=== PATIENT | male | born 1955 | race Caucasian/White ===

== ENCOUNTER 2023-07-21 01:13 | Emergency (ER) | payer OTHER, SELFPAY ==
[2023-07-21 01:15] VITALS: BP 142/98; PULSE 90; RESP 18; TEMP 36.7; O2SAT 97; BMI 25.8
--- NOTE | 2023-07-21 01:32 | ED.LOWEXI1 ---
HPI - Extremity Injury (Lower) General Chief Complaint: Extremity Injury, Lower Stated Complaint: RT KNEE PAIN Time Seen by Provider: 07/21/23 01:29 Source: patient Mode of arrival: walk-in Limitations: no limitations History of Present Illness HPI Narrative: right knee pain. States he was walking at work tonight and developed pain of the right knee. states the knee feels like it wants to give out when he has pain. no injury. Sent here from work. no fever Related Data Home Medications Medication Instructions Recorded Confirmed glipizide 10 mg tablet mg 07/21/23 insulin detemir U-100 100 unit/mL unit subcut 07/21/23 (3 mL) subcutaneous pen (Levemir FlexPen) pregabalin 100 mg capsule mg 07/21/23 Allergies Allergy/AdvReac Type Severity Reaction Status Date / Time No Known Drug Allergies Allergy Verified 07/21/23 01:20 Review of Systems ROS Status of ROS 10 or more systems reviewed and unremarkable except as noted in history and below PFSH PFS Social History Smoking status: Never smoker Exam Constitutional Vital Signs, click to edit/add: Last Vital Signs Temp 98.1 F 07/21/23 01:15 Pulse 90 07/21/23 01:15 Resp 18 07/21/23 01:15 BP 142/98 H 07/21/23 01:15 Pulse Ox 97 07/21/23 01:15 O2 Del Method Room Air 07/21/23 01:15 Common normals: no apparent distress, average body habitus, oriented x3 and no limitations Eye Common normals: PERRL, EOMs intact bilaterally and conjunctivae normal Respiratory Common normals: no retractions and no use of accessory muscles Extremity Other: exam right knee grossly normal. no swelling or discoloration. FROM Neuro Common normals: oriented x3, CN's II-XII intact bilaterally, moves all extremities and no focal motor deficits Psych Appearance: grossly normal Course Vital Signs Vital signs: Vital Signs Temperature 98.1 F 07/21/23 01:15 Pulse Rate 90 07/21/23 01:15 Respiratory Rate 18 07/21/23 01:15 Blood Pressure 142/98 H 07/21/23 01:15 Pulse Oximetry 97 07/21/23 01:15 Oxygen Delivery Method Room Air 07/21/23 01:15 Temperature 98.1 F 07/21/23 01:15 Pulse Rate 90 07/21/23 01:15 Respiratory Rate 18 07/21/23 01:15 Blood Pressure 142/98 H 07/21/23 01:15 Pulse Oximetry 97 07/21/23 01:15 Oxygen Delivery Method Room Air 07/21/23 01:15 MDM - Extremity Injury (Lower) MDM Narrative Medical decision making narrative: presents complaining of pain of the knee. when he does experience the pain and is walking the knee feels like it wants to give out. has mild tenderness dorsum of knee but no swelling or erythema. xray and labs neg. Patient provided with a knee brace and discharge to follow up with [facility] Discharge Plan Discharge Chief Complaint: Extremity Injury, Lower Clinical Impression: Knee pain, right Patient Disposition: Home, Self-Care Prescriptions / Home Meds: No Action glipizide 10 mg tablet pregabalin 100 mg capsule Levemir FlexPen 100 unit/mL (3 mL) insulin pen SUBCUT Instructions: Knee Pain (ED) Additional Instructions: follow up with [facility] in the next 2-3 days Stand Alone Forms: Portal Instructions Referrals: Shaikh Hunt MD [Primary Care Provider] - 1 week
--- NOTE | 2023-07-21 01:36 | XR_ITS ---
The [address] [address] Patient Name: LAURA ISAACS MRN: [id number] date: 1955 Sex: M Assigned Patient Location: ER Current Patient Location: ED.MAIN Accession/Order Number: [id number] Exam Date: 07/21/2023 01:45 Report Date: 07/21/2023 02:11 At the request of: ORQUIDEA BILLINGSLEY Procedure: XR knee RT 3V EXAM: XR knee RT 3V HISTORY: pain COMPARISON: None. TECHNIQUE: 3 views of the right knee were obtained. FINDINGS: No acute fracture or dislocation is seen. The joint spaces are preserved. There is no significant right knee joint effusion. XR/XR knee RT 3V IMPRESSION: 1. No acute or significant abnormality of the right knee is seen. If there is concern for internal derangement, a nonemergent outpatient MRI is recommended. Electronically authenticated by: Jadon FRANCIS Date: 07/21/2023 02:11
[2023-07-21 01:54] LABS: Basophils Absolute Auto 0.1 10^3/uL (0.0-0.1); Basophils Percent Auto 0.7 % (0.2-2.0); Eosinophils Absolute Auto 0.3 10^3/uL (0.0-0.7); Eosinophils Percent Auto 3.3 % (0.9-7.0); Hematocrit 44.7 % (42.0-54.0); Hemoglobin 15.7 g/dL (14.0-18.0); Immature Granulocytes Abs Auto 0.02 10^3/uL (0.00-0.03); Immature Granulocytes Pct Auto 0.2 % (0.0-0.5); Lymphocytes Absolute Auto 2.4 10^3/uL (1.2-3.8); Lymphocytes Percent Auto 28.6 % (20.5-60.0); Mean Corpuscular HGB Conc 35.1 g/dL (29.9-35.2); Mean Corpuscular Hemoglobin 31.5 pg (25.9-34.0); Mean Corpuscular Volume 89.6 fL (80.0-94.0); Mean Platelet Volume 11.2 fL (9.5-13.5); Monocytes Absolute Auto 0.6 10^3/uL (0.3-0.8); Monocytes Percent Auto 7.6 % (1.7-12.0); Neutrophils Percent Auto 59.6 % (43.0-75.0); Platelet Count 223 10^3/uL (150-450); Red Blood Count 4.99 10^6/uL (4.70-6.10); Red Cell Distribution Width 12.1 % (11.0-15.0); White Blood Count 8.5 10^3/uL (4.0-11.0)
[2023-07-21 02:01] LABS: Erythrocyte Sedimentation Rate 21 mm/hr (<=20)
[2023-07-21 02:03] LABS: Anion Gap 10.2; BUN Creatinine Ratio 15.1; Calcium 9.1 mg/dL (8.5-10.1); Carbon Dioxide 29.6 mmol/L (21.0-32.0); Chloride 102 mmol/L (98-107); Estimated GFR (African America >60 (>=60); Estimated GFR (Non-African Ame >60 (>=60); Glucose 90 mg/dL (74-106); Potassium 3.8 mmol/L (3.5-5.1); Sodium 138 mmol/L (136-145)
[2023-07-21 02:06] LABS: C Reactive Protein <1.0 mg/dL (<=1.0)
== END 2023-07-21 03:07 | disposition home or self-care (01) ==
PROVIDERS: Emergency Provider Internal Medicine; PCP Internal Medicine
DX: M25.561 Pain in right knee (principal); Z79.4 Long term (current) use of insulin; Z79.899 Other long term (current) drug therapy
CPT/HCPCS: 36415; 73562; 80048; 85025; 85652; 86140; 99284

== ENCOUNTER 2023-08-01 08:33 | Outpatient (OUT) | payer OTHER, SELFPAY ==
[2023-08-01 09:16] LABS: Estimated Average Glucose 143 mg/dL; Glycohemoglobin A1C 6.6 % (4.5-6.2)
[2023-08-01 10:43] LABS: Creatinine Urine Random <13.00 mg/dL (20.00-300.00); Microalbumin Urine Random 1.4 mg/dL (<=30.0)
[2023-08-04 13:09] LABS: Antiscleroderma-70 Antibodies <0.2 AI (0.0-0.9)
[2023-08-05 15:10] LABS: Antinuclear Antibodies, IFA Negative (.)
== END 2023-08-01 08:34 | disposition home or self-care (01) ==
LOC: LAB 08:34
PROVIDERS: PCP Internal Medicine; Visit Provider Internal Medicine
DX: E11.9 Type 2 diabetes mellitus without complications (principal); M35.9 Systemic involvement of connective tissue, unspecified
CPT/HCPCS: 36415; 82043; 82570; 83036; 86038; 86235

== ENCOUNTER 2024-02-02 14:16 | Outpatient (OUT) | payer MEDICARE, BC, SELFPAY ==
[2024-02-02 14:45] LABS: Estimated Average Glucose 214 mg/dL; Glycohemoglobin A1C 9.1 % (4.5-6.2)
[2024-02-02 14:51] LABS: Chol HDL Ratio 4.6; Cholesterol 187 mg/dL (<=200); HDL Cholesterol 41 mg/dL (40-60); LDL Cholesterol Calculated 117.2 mg/dL; Triglycerides 144 mg/dL (<=150); VLDL CHOLESTEROL 28.8 mg/dL
== END 2024-02-02 14:17 | disposition home or self-care (01) ==
LOC: LAB 14:22
PROVIDERS: PCP Internal Medicine; Visit Provider Internal Medicine
DX: E11.42 Type 2 diabetes mellitus with diabetic polyneuropathy (principal); Z13.220 Encounter for screening for lipoid disorders
CPT/HCPCS: 36415; 80061; 83036

== ENCOUNTER 2024-04-19 09:03 | Outpatient (OUT) | payer MEDICARE, BC, SELFPAY ==
[2024-04-22 22:07] LABS: Testosterone 493 ng/dL (264-916)
== END 2024-04-19 09:04 | disposition home or self-care (01) ==
LOC: LAB 09:05
PROVIDERS: PCP Internal Medicine; Visit Provider Internal Medicine
DX: R20.2 Paresthesia of skin (principal); M79.605 Pain in left leg; M79.604 Pain in right leg; Z79.899 Other long term (current) drug therapy; N52.8 Other male erectile dysfunction
CPT/HCPCS: 36415; 82728; 84402; 84403

== ENCOUNTER 2024-04-19 09:08 | Outpatient (OUT) | payer MEDICARE, BC, SELFPAY | END 2024-04-19 09:09 | disposition home or self-care (01) | LOC: LAB 09:10 | PROVIDERS: PCP Internal Medicine; Visit Provider Psychiatry & Neurology Neurology | DX: R20.2 Paresthesia of skin (principal); M79.605 Pain in left leg; M79.604 Pain in right leg; Z79.899 Other long term (current) drug therapy | CPT/HCPCS: 36415; 82728 ==

== ENCOUNTER 2024-04-28 14:13 | Outpatient (OUT) | payer MEDICARE, BC, SELFPAY ==
[2024-04-28 15:58] LABS: TSH W/ REFLEX FT4 1.644 uIU/mL (0.358-3.740)
[2024-04-29 04:08] LABS: FSH 3.2 mIU/mL (1.5-12.4); Prolactin 13.2 ng/mL (3.6-25.2)
[2024-05-01 20:08] LABS: Free Testosterone(Direct) 4.3 pg/mL (6.6-18.1); Testosterone 607 ng/dL (264-916)
== END 2024-04-28 14:14 | disposition home or self-care (01) ==
LOC: LAB 14:14
PROVIDERS: PCP Internal Medicine; Visit Provider Internal Medicine
DX: E34.9 Endocrine disorder, unspecified (principal)
CPT/HCPCS: 36415; 83001; 83002; 84146; 84402; 84403; 84443

== ENCOUNTER 2024-05-19 10:11 | Outpatient (OUT) | payer MEDICARE, BC, SELFPAY ==
--- OUTSIDE RECORDS SUMMARY | 2024-05-19 10:27 | XMS_ITS | CCD ---
Author Organization [facility] Care Team Providers Care Healthcare Marketer Name Role Phone WEST, DR POORNIMA Murry Consulting Unavailable LANG, LAYNE Admitting Unavailable LANG, LAYNE Attending Unavailable REQUEST, NONE LISTED Primary Care Unavaila ble LANG, LAYNE Consulting Unavailable FAWWAD, BOWEN H Attending Unavailable FAWWAD, BOWEN H Admitting Unavailable FAWWAD, BOWEN H Primary Care Unavailable FAWWAD, BOWEN H Consulting Unavailable FAWWAD, BOWEN H Attending Unavailable FAWWAD, BOWEN H Admitting Unavailable FAWWAD, BOWEN H Primary Care Unavailable FAWWAD, BOWEN H Consulting Unavailable LANG, LAYNE Admitting Unavailable LANG, LAYNE Consulting Unavailable LANG, LAYNE Attending Unavailable REQUEST, NONE LISTED Primary Care Unavaila ble FAWWAD, BOWEN Attending Unavailable FAWWAD, BOWEN Attending Unavailable ALISSA MURO Attending Unavailable FAWWAD, Attending Unavailable ALLA SANTANA Attending Unavailable Problems Problem Classification Problem Date Documented Da te Episodic/Chronic Diabetes mellitus without complication (1 source) Type 2 diabetes mellitus without complications; Translations: [TYPE 2 DM WITHOUT COMPLICATIONS] Onset: 03-13-2023 Chronic Other nervous system disorders (4 sources) Polyneuropathy, unspecified; Translations: [POLYNEUROPATHY UNSPECIFIED] Onset: 03-07-2023 Chronic Other nervous system disorders (4 sources) Paresthesia of skin; Translations: [PARESTHESIA OF SKIN] Onset: 02-03-2023 Episodic Other nervous system disorders (4 sources) Anesthesia of skin; Translations: [ANESTHESIA OF SKIN] Onset: 01-09-2023 Episodic Results Test Name Value Interpretation Reference Range Facil ity CBC AUTO DIFFon 05-05-2023 BASO # 0.0 103/ul Normal 0.0-0.1 [facility] Comment on above: Performed By: #### C BC #### [facility] [address] [place] [address] Dr. Stella Mora Basophils/100 WBC (Bld) 0.4 % Normal 0.2-2.0 [facility] Comment on above: Performed By: #### C BC #### [facility] [address] [place] [address] Dr. Stella Mora EO # 0.1 103/ul Normal 0.0-0.7 [facility] Comment on above: Performed By: #### C BC #### [facility] [address] [place] [address] Dr. Stella Mora Eosinophils/100 WBC (Bld) 0.7 % Critically low 0.9-7.0 [facility] Comment on above: Performed By: #### C BC #### [facility] [address] [place] [address] Dr. Stella Mora Erythrocyte distribution width (RBC) [Ratio] 11.9 % Normal 11.0-15.0 [facility] Comment on above: Performed By: #### C BC #### [facility] [address] [place] [address] Dr. Stella Mora Hematocrit (Bld) [Volume fraction] 43.5 % Normal 42.0-54.0 [facility] Comment on above: Performed By: #### C BC #### [facility] [address] [place] [address] Dr. Stella Mora Hemoglobin (Bld) [Mass/Vol] 15.6 g/dL Normal 14.0-18.0 [facility] Comment on above: Performed By: #### C BC #### [facility] [address] [place] [address] Dr. Stella Mora IG # 0.01 10e3/ul Normal 0.00-0.03 [facility] Comment on above: Performed By: #### C BC #### [facility] [address] [place] [address] Dr. Stella Mora IG % 0.1 % Normal 0.0-0.5 [facility] Comment on above: Performed By: #### C BC #### [facility] [address] [place] [address] Dr. Stella Mora LYMPH # 1.7 103/ul Normal 1.2-3.8 [facility] Comment on above: Performed By: #### C BC #### [facility] [address] [place] [address] Dr. Stella Mora Lymphocytes/100 WBC (Bld) 24.5 % Normal 20.5-60.0 [facility] Comment on above: Performed By: #### C BC #### [facility] [address] [place] [address] Dr. Stella Mora MANUAL DIFF REQ NO Normal [facility] Comment on above: Performed By: #### C BC #### [facility] [address] [place] [address] Dr. Stella Mora MCH (RBC) [Entitic mass] 31.8 pg Normal 25.9-34.0 [facility] Comment on above: Performed By: #### C BC #### [facility] [address] [place] [address] Dr. Stella Mora MCHC (RBC) [Mass/Vol] 35.9 g/dL Critically high 29.9-35.2 [facility] Comment on above: Performed By: #### C BC #### [facility] [address] [place] [address] Dr. Stella Mora MCV (RBC) [Entitic vol] 88.6 fL Normal 80.0-94.0 [facility] Comment on above: Performed By: #### C BC #### [facility] [address] [place] [address] Dr. Stella Mora MONO # 0.5 103/ul Normal 0.3-0.8 [facility] Comment on above: Performed By: #### C BC #### [facility] [address] [place] [address] Dr. Stella Mora Monocytes/100 WBC (Bld) 6.9 % Normal 1.7-12.0 [facility] Comment on above: Performed By: #### C BC #### [facility] [address] [address] [address] Stella Mora NEUT # 4.6 103/ul Normal 1.4-6.5 [facility] Comment on above: Performed By: #### C BC #### [facility] [address] [address] [address] Stella Mora Neutrophils/100 WBC (Bld) 67.4 % Normal 43.0-75.0 [facility] Comment on above: Performed By: #### C BC #### [facility] [address] [address] [address] Stella Mora Platelet mean volume (Bld) [Entitic vol] 10.7 fL Normal 9.5-13.5 [facility] Comment on above: Performed By: #### C BC #### [facility] [address] [place] [address] Dr. Stella Mora PLT 242 103/ul Normal 150-450 [facility] Comment on above: Performed By: #### C BC #### [facility] [address] [address] [address] Stella Mora RBC 4.91 106/ul Normal 4.70-6.10 [facility] Comment on above: Performed By: #### C BC #### [facility] [address] [place] [address] Dr. Stlela Mora WBC 6.8 103/ul Normal 4.0-11.0 [facility] Comment on above: Performed By: #### C BC #### [facility] [address] [place] [address] Dr. Stella Mora GLYCOHEMOGLOBIN A1Con 2022 ADA RECOMMENDATION SEE BELOW Normal [facility] Comment on above: Result Comment: ADA RECOMMENDED LIMIT 4.0 - 6.0 ADA THERAPEUTIC TARGET < 7.0 ACTION SUGGESTED > 7.0 Performed By: #### A 1C #### [facility] [address] [address] [address] Stella Mora Glucose [Mass/Vol] 309 mg/dL Normal [facility] Comment on above: Performed By: #### A 1C #### [facility] [address] [address] [address] Stella Mora HbA1c (Bld) [Mass fraction] 12.4 % Critically high 4.5-6.2 [facility] Comment on above: Performed By: #### A 1C #### [facility] [address] [place] [address] Dr. Stella Mora PROF 14(COMP METB)on 023 Albumin [Mass/Vol] 4.0 g/dL Normal 3.4-5.0 [facility] Comment on above: Performed By: #### C MP #### [facility] [address] [place] [address] Dr. Stella Mora Albumin/Globulin [Mass ratio] 0.9 {ratio} Normal [facility] Comment on above: Performed By: #### C MP #### [facility] [address] [place] [address] Dr. Stella Mora ALP [Catalytic activity/Vol] 103 U/L Normal 46-116 [facility] Comment on above: Performed By: #### C MP #### [facility] [address] [place] [address] Dr. Stella Mora ALT [Catalytic activity/Vol] 45 U/L Normal 16-63 [facility] Comment on above: Performed By: #### C MP #### [facility] [address] [place] [address] Dr. Stella Mora Anion gap [Moles/Vol] 9.5 mmol/L Normal [facility] Comment on above: Performed By: #### C MP #### [facility] [address] [place] [address] Dr. Stella Mora AST [Catalytic activity/Vol] 18 U/L Normal 15-37 [facility] Comment on above: Performed By: #### C MP #### [facility] [address] [place] [address] Dr. Stella Mora Bilirubin [Mass/Vol] 1.9 mg/dL Critically high 0.2-1.0 [facility] Comment on above: Performed By: #### C MP #### [facility] [address] [address] [address] Stella Mora Calcium [Mass/Vol] 9.1 mg/dL Normal 8.5-10.1 [facility] Comment on above: Performed By: #### C MP #### [facility] [address] [address] [address] Stella Mora Chloride [Moles/Vol] 98 mmol/L Normal 98-107 [facility] Comment on above: Performed By: #### C MP #### [facility] [address] [address] [address] Stella Mora CO2 [Moles/Vol] 28.4 mmol/L Normal 21.0-32.0 [facility] Comment on above: Performed By: #### C MP #### [facility] [address] [address] [address] Stella Mora Creatinine [Mass/Vol] 0.87 mg/dL Normal 0.70-1.30 [facility] Comment on above: Performed By: #### C MP #### [facility] [address] [address] [address] Stella Mora EGFR-AF FIJIAN >60 Normal >=60 [facility] Comment on above: Performed By: #### C MP #### [facility] [address] [place] [address] Dr. Stella Mora EGFR-NON AF FIJIAN >60 Normal >=60 [facility] Comment on above: Performed By: #### C MP #### [facility] [address] [address] [address] Stella Mora Globulin (S) [Mass/Vol] 4.3 g/dL Normal [facility] Comment on above: Performed By: #### C MP #### [facility] [address] [place] [address] Dr. Stella Mora Glucose [Mass/Vol] 258 mg/dL Critically high 74-106 [facility] Comment on above: Performed By: #### C MP #### [facility] [address] [place] [address] Dr. Stella Mora Potassium [Moles/Vol] 3.9 mmol/L Normal 3.5-5.1 [facility] Comment on above: Performed By: #### C MP #### [facility] [address] [place] [address] Dr. Stella Mora Protein [Mass/Vol] 8.3 g/dL Critically high 6.4-8.2 [facility] Comment on above: Performed By: #### C MP #### [facility] [address] [place] [address] Dr. Stella Mora Sodium [Moles/Vol] 132 mmol/L Critically low 136-145 [facility] Comment on above: Performed By: #### C MP #### [facility] [address] [place] [address] Dr. Stella Mora Urea nitrogen [Mass/Vol] 15.0 mg/dL Normal 7.0-18.0 [facility] Comment on above: Performed By: #### C MP #### [facility] [address] [place] [address] Dr. Stelal Mora Urea nitrogen/Creatinine [Mass ratio] 17.2 mg/mg Normal [facility] Comment on above: Performed By: #### C MP #### [facility] [address] [place] [address] Dr. Stella Mora VIT B12 AND FOLATEon 023 Cobalamin (Vitamin B12) [Mass/Vol] 688.0 pg/mL Normal 193.0-986.0 [facility] Comment on above: Performed By: #### B 12FOL #### [facility] [address] [place] [address] Dr. Stella Mora FOLATE 20.10 ng/mL Normal 8.60-58.90 [facility] Comment on above: Performed By: #### B 12FOL #### [facility] [address] [place] [address] Dr. Stella Mora XR FOOT URBANO MIN 3 VIEWSon XR FOOT URBANO MIN 3 VIEWS EXAMINATION: XR FOOT URBANO MIN 3 VIEWS HISTORY: Pain in both feet COMPARISON: No relevant comparison available. FINDINGS: RIGHT FINDINGS: BONES: Normal. No significant arthropathy or acute abnormality. SOFT TISSUES: Negative. No visible soft tissue swelling. OTHER: Negative. LEFT FINDINGS: BONES: Normal. No significant arthropathy or acute abnormality. SOFT TISSUES: Negative. No visible soft tissue swelling. OTHER: Negative. IMPRESSION: RIGHT CONCLUSION: No acute abnormality LEFT CONCLUSION: No acute abnormality Electronically authenticated by: POORNIMA RUSSELL Date: 2023-01-09 15:26 Normal [facility] Patient Letter FTon 2021 Patient Letter FT November 12, 2021 LAURA ISAACS JR [address] [place] [phone] LAURA ISAACS JR 1955 Dear Laura, This is a SECOND ATTEMPT to remind you that you are due for an appointment with [facility]. Please contact our office at [phone] to schedule an appointment at your earliest convenience. Thank you, [facility] Reminderson 11-12-2021 Reminders -- From: Saritha Garcia To: [facility] - Reminders/Recalls; Sent: 05/30/2021 10:58:45 EDT Show up: 09/03/2021 10:58:00 EDT Subject: Ambulatory Reminder Due Date/Time: 10/13/2021 10:58:00 EST Reminder/Recall 5 year colon recall salam 10/13/2021 first recall letter second recall letter Normal [facility] Patient Letter FTon 2020 Patient Letter FT September 03, 2021 LAURA ISAACS JR [address] [phone] LAURA ISAACS JR 1955 Dear Laura, This is a reminder that you are due for an appointment with [facility]. Please contact our office at [phone] to schedule an appointment at your earliest convenience. Thank you, [facility] Testosterone Free And Total, Adult Maleon 05-04-2019 Sex Hormone Binding Globulin 37 nmol/L Normal 11-80 [facility] Comment on above: Result Comment: REFE RENCE INTERVAL: Sex Hormone Binding Globulin Access complete set of age- and/or gender-specific reference intervals for this test in the [facility] Test Directory ([employer]). Testosterone, Adult Male 194 ng/dL Low 300-720 [facility] Comment on above: Result Comment: REFE RENCE INTERVAL: Testosterone, Adult Male Access complete set of age- and/or gender-specific reference intervals for this test in the [facility] Test Directory ([employer]). Testosterone, Free Calculation 32 pg/mL Low 47-244 [facility] Comment on above: Result Comment: INTE RPRETIVE INFORMATION: Testosterone, Free Chao Stage IV 35 - 169 pg/mL Chao Stage V 41 - 239 pg/mL The concentration of Free Testosterone is derived from a mathematical expression based on the constant for the binding of testosterone to Sex Hormone Binding Globulin (SHBG). Access complete set of age- and/or gender-specific reference intervals for this test in the [facility] Test Directory ([employer]). Testosterone, Percentage Free 1.6 % Normal 1.6-2.9 [facility] Comment on above: Result Comment: Perf ormed by [facility], [address] [place] [address] [email or web address], Eleazar Baker MD - Lab. Director Basic Metabolic Panelon 07-0 Anion gap [Moles/Vol] 13 mmol/L Normal 9-15 [facility] Comment on above: Performed By: #### B MP ####[facility] [facility] [phone] Calcium [Mass/Vol] 8.8 mg/dL Normal 8.5-9.9 [facility] Comment on above: Performed By: #### B MP ####[facility] [facility] [phone] Chloride [Moles/Vol] 102 mmol/L Normal 95-107 [facility] Comment on above: Performed By: #### B MP ####[facility] [facility] [phone] CO2 [Moles/Vol] 24 mmol/L Normal 20-31 [facility] Comment on above: Performed By: #### B MP ####[facility] [facility] [phone] Creatinine [Mass/Vol] 0.88 mg/dL Normal 0.70-1.20 [facility] Comment on above: Performed By: #### B MP ####[facility] [facility] [phone] GFR/1.73 sq M predicted among blacks MDRD (S/P/Bld) [Vol rate/Area] mL/min/{1.73_m2} Normal >60 [facility] Comment on above: Result Comment: >60 mL/min/1.73m2 EGFR, calc. for ages 18 and older using the MDRD formula (not corrected for weight), is valid for stable renal function. Performed By: #### B MP ####[facility] [facility] [phone] GFR/1.73 sq M.predicted MDRD (S/P/Bld) [Vol rate/Area] mL/min/{1.73_m2} Normal >60 [facility] Comment on above: Result Comment: >60 mL/min/1.73m2 EGFR, calc. for ages 18 and older using the MDRD formula (not corrected for weight), is valid for stable renal function. Performed By: #### B MP ####[facility] [facility] [phone] Glucose [Mass/Vol] 161 mg/dL Critically high 70-99 [facility] Comment on above: Performed By: #### B MP ####[facility] [facility] [phone] Potassium [Moles/Vol] 4.0 mmol/L Normal 3.4-4.9 [facility] Comment on above: Performed By: #### B MP ####[facility] [facility] [phone] Sodium [Moles/Vol] 139 mmol/L Normal 135-144 [facility] Comment on above: Performed By: #### B MP ####[facility] [facility] [phone] Urea nitrogen [Mass/Vol] 21 mg/dL Normal 8-23 [facility] Comment on above: Performed By: #### B MP ####[facility] [facility] [phone] Hemoglobin A1con 05-03-2019 HbA1c (Bld) [Mass fraction] 7.0 % Critically high 4.8-5.9 [facility] Comment on above: Performed By: #### A 1C ####[facility] [facility] [phone] PSA Diagnosticon 05-03-2019 PSA Diagnostic 0.68 ng/mL Normal 0.00-5.40 [facility] Comment on above: Performed By: #### P SADG ####[facility] [facility] [phone] UR Microalbumin/Creatinine R atio Randomon 05-03-2019 Microalbumin/creatini ne Ratio 124.0 mg/G Critically high 0.0-30.0 [facility] Comment on above: Performed By: #### U MACR ####[facility] [facility] [phone] UR Creatinine Random 37.1 mg/dL Normal Not [facility] Comment on above: Performed By: #### U MACR ####[facility] [facility] [phone] UR Microalbumin Random 4.60 mg/dL Critically high Not [facility] Comment on above: Performed By: #### U MACR ####[facility] [facility] [phone] Testosterone Free And Total, Adult Maleon 02-16-2019 Sex Hormone Binding Globulin 39 nmol/L Normal 11-80 [facility] Comment on above: Result Comment: REFE RENCE INTERVAL: Sex Hormone Binding Globulin Access complete set of age- and/or gender-specific reference intervals for this test in the [facility] Test Directory ([employer]). Testosterone, Adult Male 165 ng/dL Low 300-720 [facility] Comment on above: Result Comment: REFE RENCE INTERVAL: Testosterone, Adult Male Access complete set of age- and/or gender-specific reference intervals for this test in the [facility] Test Directory ([employer]). Testosterone, Free Calculation 26 pg/mL Low 47-244 [facility] Comment on above: Result Comment: INTE RPRETIVE INFORMATION: Testosterone, Free Chao Stage IV 35 - 169 pg/mL Chao Stage V 41 - 239 pg/mL The concentration of Free Testosterone is derived from a mathematical expression based on the constant for the binding of testosterone to Sex Hormone Binding Globulin (SHBG). Access complete set of age- and/or gender-specific reference intervals for this test in the [facility] Test Directory ([employer]). Testosterone, Percentage Free 1.6 % Normal 1.6-2.9 [facility] Comment on above: Result Comment: Perf ormed by [facility], [address] [facility] [place] [address] www.[email or web address], Eleazar Baker MD - Lab. Director UR Microalbumin/Creatinine R atio Randomon 02-16-2019 Microalbumin/creatini ne Ratio 126.0 mg/G Critically high 0.0-30.0 [facility] Comment on above: Performed By: #### U MACR ####[facility] [facility] [place] [phone] UR Creatinine Random 48.4 mg/dL Normal Not Establ [facility] Comment on above: Performed By: #### U MACR ####[facility] [facility] [place] [phone] UR Microalbumin Random 6.10 mg/dL Critically high Not [facility] Comment on above: Performed By: #### U MACR ####[facility] [place] [phone] Basic Metabolic Panelon 04-1 Anion gap [Moles/Vol] 12 mmol/L Normal 9-15 [facility] Comment on above: Result Comment: Effe ctive: 12/10/2018 New reference range for this analyte has been established. Performed By: #### B MP #### [facility] [address] [place] [address] Calcium [Mass/Vol] 9.0 mg/dL Normal 8.5-9.9 [facility] Comment on above: Result Comment: Effe ctive: 12/10/2018 New reference range for this analyte has been established. Performed By: #### B MP #### [facility] [address] [place] [address] Chloride [Moles/Vol] 100 mmol/L Normal 95-107 [facility] Comment on above: Result Comment: Effe ctive: 12/10/2018 New reference range for this analyte has been established. Performed By: #### B MP #### [facility] [address] [place] [address] CO2 [Moles/Vol] 27 mmol/L Normal 20-31 [facility] Comment on above: Result Comment: Effe ctive: 12/10/2018 New reference range for this analyte has been established. Performed By: #### B MP #### [facility] [address] [place] [address] Creatinine [Mass/Vol] 0.82 mg/dL Normal 0.70-1.20 [facility] Comment on above: Performed By: #### B MP #### [facility] [address] [place] [address] GFR/1.73 sq M predicted among blacks MDRD (S/P/Bld) [Vol rate/Area] mL/min/{1.73_m2} Normal >60 [facility] Comment on above: Result Comment: >60 mL/min/1.73m2 EGFR, calc. for ages 18 and older using the MDRD formula (not corrected for weight), is valid for stable renal function. Performed By: #### B MP #### [facility] [address] [place] [address] GFR/1.73 sq M.predicted MDRD (S/P/Bld) [Vol rate/Area] mL/min/{1.73_m2} Normal >60 [facility] Comment on above: Result Comment: >60 mL/min/1.73m2 EGFR, calc. for ages 18 and older using the MDRD formula (not corrected for weight), is valid for stable renal function. Performed By: #### B MP #### [facility] [address] [place] [address] Glucose [Mass/Vol] 95 mg/dL Normal 70-99 [facility] Comment on above: Result Comment: Effe ctive: 12/10/2018 New reference range for this analyte has been established. Performed By: #### B MP #### [facility] [facility] [address] [place] [address] Potassium [Moles/Vol] 4.0 mmol/L Normal 3.4-4.9 [facility] Comment on above: Result Comment: Effe ctive: 12/10/2018 New reference range for this analyte has been established. Performed By: #### B MP #### [facility] [address] [place] [address] Sodium [Moles/Vol] 139 mmol/L Normal 135-144 [facility] Comment on above: Result Comment: Effe ctive: 12/10/2018 New reference range for this analyte has been established. Performed By: #### B MP #### [facility] [address] [place] [address] Urea nitrogen [Mass/Vol] 14 mg/dL Normal 8-23 [facility] Comment on above: Performed By: #### B MP #### [facility] [address] [place] [address] Hemoglobin A1con 02-15-2019 HbA1c (Bld) [Mass fraction] 6.9 % Critically high 4.8-5.9 [facility] Comment on above: Performed By: #### A 1C #### [facility] [address] [place] [address] PSA Diagnosticon 02-15-2019 PSA Diagnostic 0.70 ng/mL Normal 0.00-5.40 [facility] Comment on above: Performed By: #### P SADG #### [facility] [address] [place] [address] Testosterone Free And Total, Adult Maleon 11-19-2018 Sex Hormone Binding Globulin 38 nmol/L Normal 11-80 [facility] Comment on above: Result Comment: REFE RENCE INTERVAL: Sex Hormone Binding Globulin Access complete set of age- and/or gender-specific reference intervals for this test in the [facility] Test [facility] ([employer]). Testosterone, Adult Male 560 ng/dL Normal 300-720 [facility] Comment on above: Result Comment: REFE RENCE INTERVAL: Testosterone, Adult Male Access complete set of age- and/or gender-specific reference intervals for this test in the [facility] Test [facility] ([employer]). Testosterone, Free Calculation 100 pg/mL Normal 47-244 [facility] Comment on above: Result Comment: INTE RPRETIVE INFORMATION: Testosterone, Free Chao Stage IV 35 - 169 pg/mL Chao Stage V 41 - 239 pg/mL The concentration of Free Testosterone is derived from a mathematical expression based on the constant for the binding of testosterone to Sex Hormone Binding Globulin (SHBG). Access complete set of age- and/or gender-specific reference intervals for this test in the [facility] Test Directory ([employer]). Testosterone, Percentage Free 1.8 % Normal 1.6-2.9 [facility] Comment on above: Result Comment: Perf ormed by [facility], [address] [place] [place] [address] [email or web address], Eleazar Baker MD - Lab. Director Basic Metabolic Panelon 11-03 Anion gap [Moles/Vol] 11 mmol/L Normal 7-13 [facility] Calcium [Mass/Vol] 8.8 mg/dL Normal 8.6-10.2 [facility] Chloride [Moles/Vol] 101 mmol/L Normal 98-107 [facility] CO2 [Moles/Vol] 26 mmol/L Normal 22-29 [facility] Creatinine [Mass/Vol] 1.13 mg/dL Normal 0.70-1.20 [facility] GFR/1.73 sq M predicted among blacks MDRD (S/P/Bld) [Vol rate/Area] mL/min/{1.73_m2} Normal >60 [facility] Comment on above: Result Comment: >60 mL/min/1.73m2 EGFR, calc. for ages 18 and older using the MDRD formula (not corrected for weight), is valid for stable renal function. GFR/1.73 sq M.predicted MDRD (S/P/Bld) [Vol rate/Area] mL/min/{1.73_m2} Normal >60 [facility] Comment on above: Result Comment: >60 mL/min/1.73m2 EGFR, calc. for ages 18 and older using the MDRD formula (not corrected for weight), is valid for stable renal function. Glucose [Mass/Vol] 142 mg/dL Critically high 74-109 [facility] Potassium [Moles/Vol] 4.1 mmol/L Normal 3.5-5.1 [facility] Sodium [Moles/Vol] 138 mmol/L Normal 132-144 [facility] Urea nitrogen [Mass/Vol] 14 mg/dL Normal 8-23 [facility] CBC With Platelet No Differe ntialon 11-17-2018 Erythrocyte distribution width (RBC) [Ratio] 12.6 % Normal 11.5-14.5 [facility] Hematocrit (Bld) [Volume fraction] 47.7 % Normal 42.0-52.0 [facility] Hemoglobin (Bld) [Mass/Vol] 17.0 g/dL Normal 14.0-18.0 [facility] MCH (RBC) [Entitic mass] 32.8 pg Critically high 27.0-31.3 [facility] MCHC (RBC) [Mass/Vol] 35.7 % Normal 33.0-37.0 [facility] MCV (RBC) [Entitic vol] 91.9 fL Normal 80.0-100.0 [facility] Platelets (Bld) [#/Vol] 178 10*3/uL Normal 130-400 [facility] RBC (Bld) [#/Vol] 5.19 10*6/uL Normal 4.70-6.10 [facility] WBC (Bld) [#/Vol] 6.4 10*3/uL Normal 4.8-10.8 [facility] Hemoglobin A1con 11-17-2018 HbA1c (Bld) [Mass fraction] 7.5 % Critically high 4.8-5.9 [facility] Testosterone Free And Total, Adult Maleon 08-19-2018 Sex Hormone Binding Globulin 45 nmol/L Normal 11-80 [facility] Comment on above: Result Comment: REFE RENCE INTERVAL: Sex Hormone Binding Globulin Access complete set of age- and/or gender-specific reference intervals for this test in the [facility] Test Directory ([employer]). Testosterone, Adult Male >1500 Critically high 300-720 [facility] Comment on above: Result Comment: REFE RENCE INTERVAL: Testosterone, Adult Male Access complete set of age- and/or gender-specific reference intervals for this test in the [facility] Test [facility] ([employer]). Testosterone, Free Calculation See Note Normal 47-244 [facility] Comment on above: Result Comment: The Free Testosterone result is greater than 300 pg/mL. INTERPRETIVE INFORMATION: Testosterone, Free Chao Stage IV 35 - 169 pg/mL Chao Stage V 41 - 239 pg/mL The concentration of Free Testosterone is derived from a mathematical expression based on the constant for the binding of testosterone to Sex Hormone Binding Globulin (SHBG). Access complete set of age- and/or gender-specific reference intervals for this test in the [facility] Test [facility] ([employer]). Testosterone, Percentage Free See Note Normal 1.6-2.9 [facility] Comment on above: Result Comment: The percent Free Testosterone result is greater than 2.0 percent. Performed by [facility], [address] [place] [address],[place] [id number] [email or web address], Eleazar Baker MD - Lab. Director Basic Metabolic Panelon 08-03 Anion gap [Moles/Vol] 16 mmol/L Critically high 7-13 [facility] Calcium [Mass/Vol] 8.9 mg/dL Normal 8.6-10.2 [facility] Chloride [Moles/Vol] 100 mmol/L Normal 98-107 [facility] CO2 [Moles/Vol] 24 mmol/L Normal 22-29 [facility] Creatinine [Mass/Vol] 0.89 mg/dL Normal 0.70-1.20 [facility] GFR/1.73 sq M predicted among blacks MDRD (S/P/Bld) [Vol rate/Area] mL/min/{1.73_m2} Normal >60 [facility] Comment on above: Result Comment: >60 mL/min/1.73m2 EGFR, calc. for ages 18 and older using the MDRD formula (not corrected for weight), is valid for stable renal function. GFR/1.73 sq M.predicted MDRD (S/P/Bld) [Vol rate/Area] mL/min/{1.73_m2} Normal >60 [facility] Comment on above: Result Comment: >60 mL/min/1.73m2 EGFR, calc. for ages 18 and older using the MDRD formula (not corrected for weight), is valid for stable renal function. Glucose [Mass/Vol] 82 mg/dL Normal 74-109 [facility] Potassium [Moles/Vol] 4.0 mmol/L Normal 3.5-5.1 [facility] Sodium [Moles/Vol] 140 mmol/L Normal 132-144 [facility] Urea nitrogen [Mass/Vol] 10 mg/dL Normal 8-23 [facility] Hemoglobin A1con 08-17-2018 HbA1c (Bld) [Mass fraction] 6.9 % Critically high 4.8-5.9 [facility] Encounters Encounter Date Encounter Type Care Provider Facility Start: 04-28-2024 End: 04-28-2024 ambulatory ALLA SANTANA Not Available Start: 04-21-2024 End: 04-21-2024 ambulatory SHAIKH VALENCIA Not Available Start: 04-01-2024 End: 04-01-2024 ambulatory ALISSA MURO Not Available Start: 02-19-2024 End: 02-19-2024 ambulatory SHAIKH VALENCIA Not Available Start: 10-02-2023 End: 10-02-2023 ambulatory SHAIKH VALENCIA Not Available Start: 03-17-2023 End: 03-18-2023 ambulatory SHAIKH Ana [place] Facility:[facility] Start: 03-07-2023 End: 03-08-2023 ambulatory SHAIKH Ana [place] Facility:[facility] Start: 02-03-2023 End: 02-04-2023 ambulatory LAYNETILA CROFT Facility:[facility] Start: 01-09-2023 End: 01-10-[address] POORNIMA RUSSELL Facility:[facility] Payers Date Payer Category Payer Medicare [id number] 2023 Unknown [id number] 1955 Unknown [id number] 2.16.84 [id number] 1955 Unknown [id number] 2.16.84 [id number] 1957 Unknown [id number] 2.16.84 [id number] 1957 Unknown [id number] 2.16.84 [id number] 1957 Unknown [id number] 2.16.84 [id number] 1957 Unknown [id number] 2.16.84 [id number] 1957 Unknown [id number] 2.16.84 [id number] 1957 Unknown [id number] 2.16.84 [id number] 1957 Unknown [id number] [id number] .[id number] Unknown [id number] Summary Purpose Family History No Family History Records FoundNo Family History Records FoundNo Family History Records FoundNo Family History Records Found Advance Directives No Advanced Directives Records FoundNo Advanced Directives Records FoundNo Advanced Directives Records FoundNo Advanced Directives Records Found Additional Source Comments (unrecognized sect ion and content) No Status Records FoundNo Status Records FoundNo Status Records FoundNo Status Records Found INFORMATION SOURCE (unrecogn ized section and content) DATE CREATED AUTHOR [facility] DATE CREATED AUTHOR AUTHOR'S ORGANIZ ATION 11/13/2021 [facility] DATE CREATED AUTHOR AUTHOR'S ORGANIZ ATION [facility]/18[facility]2023 [facility] DATE CREATED AUTHOR AUTHOR'S ORGANIZ ATION 04/29/2024 [facility] FOR RECORDS PERTAINING TO PATIENTS WHO ARE OR HAVE BEEN ENROLLED IN A CHEMICAL DEPENDENCY/SUBSTANCEABUSE PROGRAM, SOME INFORMATION MAY BE OMITTED. This clinical summary was aggregated from multiple sources. Caution should be exercised in using it in the provision of clinical care. This summary normalizes information from multiple sources, and as a consequence, information in this document may materially change the coding, format and clinical context of patient data. In addition, data may be omitted in some cases. CLINICAL DECISIONS SHOULD BE BASED ON THE PRIMARY CLINICAL RECORDS. [facility]. provides no warranty or guarantee of the accuracy or completeness of information in this document.
[2024-05-19 11:19] LABS: Chol HDL Ratio 3.2; Cholesterol 119 mg/dL (<=200); HDL Cholesterol 37 mg/dL (40-60); Triglycerides 83 mg/dL (<=150); VLDL CHOLESTEROL 16.6 mg/dL
[2024-05-19 11:37] LABS: Estimated Average Glucose 137 mg/dL; Glycohemoglobin A1C 6.4 % (4.5-6.2)
[2024-05-22 02:07] LABS: Testosterone 611 ng/dL (264-916)
== END 2024-05-19 10:12 | disposition home or self-care (01) ==
LOC: LAB 10:12
PROVIDERS: PCP Internal Medicine; Visit Provider Internal Medicine
DX: E11.42 Type 2 diabetes mellitus with diabetic polyneuropathy (principal); Z79.4 Long term (current) use of insulin; N52.8 Other male erectile dysfunction; E78.49 Other hyperlipidemia
CPT/HCPCS: 36415; 80061; 83036; 84402; 84403

== ENCOUNTER 2024-08-23 15:17 | Outpatient (OUT) | payer MEDICARE, BC, SELFPAY ==
--- OUTSIDE RECORDS SUMMARY | 2024-08-23 15:41 | XMS_ITS | CCD ---
Author Organization [facility] Care Team Providers Care Powerhouse Electrician Name Role Phone WEST, DR POORNIMA Murry Consulting Unavailable LANG, LAYNE Admitting Unavailable LANG, LAYNE Attending Unavailable REQUEST, NONE LISTED Primary Care Unavaila ble LANG, LAYNE Consulting Unavailable FAWWAD, BOWEN H Attending Unavailable FAWWAD, H Admitting Unavailable FAWWAD, BOWEN H Primary Care Unavailable FAWWAD, H Consulting Unavailable FAWWAD, H Attending Unavailable FAWWAD, H Admitting Unavailable FAWWAD, BOWEN H Primary Care Unavailable FAWWAD, H Consulting Unavailable LANG, LAYNE Admitting Unavailable LANG, LAYNE Consulting Unavailable LANG, LAYNE Attending Unavailable REQUEST, NONE LISTED Primary Care Unavaila serena HUNT, Attending Unavailable FAWWAD, Attending Unavailable ALISSA MURO Attending Unavailable FAWWAD, Attending Unavailable SANTANA, ALLA Attending Unavailable FAWWAD, Attending Unavailable SANTANA, ALLA Attending Unavailable SANTANA, ALLA Attending Unavailable FAWWAD, Referring Unavailable FaShaikh cho MD Primary Care Provider [phone] Allergies Allergy Classification Reported Allergen(s) Allergy Type Date of Onset Reaction(s) Facility (3 sources) empagliflozin / Linagliptin Drug Allergy 8 Unknown [facility] (3 sources) Amoxicillin-Pot Clavulanate Drug Allergy 3 Diarrhea [facility] (3 sources) Metformin And Related Drug Intolerance 8 Unknown [facility] Medications Current Medications Medication Drug Class(es) Dates Sig (Normalized) Sig (Original) atorvastatin 20 mg oral tablet (3 sources) HMG-CoA Reductase Inhibitor Start: 2023 End: 2024 take 1 tablet by mouth once daily atorvastatin (Lipitor) 20 MG tablet Indications: Other hyperlipidemia (CMS/HCC) Take 1 tablet (20 mg) by mouth Daily 90 tablet 1 06/01/2024 11/28/2024 Active Carboxymethylcellulose (3 sources) Carboxymethylcel lulose Sodium (EYE DROPS OP) Administer into affected eye(s) Active Continuous Blood Gluc Voice Network Administrator (FreeStyle Nakia 2 Stewart) device (3 sources) Continuous Blood Gluc Voice Network Administrator (FreeStyle Nakia 2 Stewart) device Active Continuous Blood Gluc Sensor (FreeStyle Nakia 2 Sensor) misc (3 sources) Continuous Blood Gluc Sensor (FreeStyle Nakia 2 Sensor) misc Active dorzolamide 20 mg/ml / timolol 5 mg/ml ophthalmic solution (3 sources) Carbonic Anhydrase Inhibitor, beta-Adrenergic Lev take 1 drop(s) into the eye(s) in the morning dorzolamide-timolol (Cosopt) 2-0.5 % ophthalmic solution Administer 1 drop into both eyes in the morning and 1 drop before bedtime. Active 0.5 ml dulaglutide 3 mg/ml auto-injector (3 sources) GLP-1 Receptor Agonist Start: 2023 inject 1.5 mg by subcutaneous injection every week dulaglutide (Trulicity) 1.5 MG/0.5ML solution pen-injector Indications: Type 2 diabetes mellitus with diabetic polyneuropathy, with long-term current use of insulin (CMS/[facility]) Inject 1.5 mg under the skin 1 (one) time per week 12 pen 1 06/01/2024 Active DULoxetine 40 mg delayed release oral capsule (3 sources) Serotonin and Norepinephrine Reuptake Inhibitor Start: 2023 End: 2023 take 1 capsule by mouth once daily DULoxetine (Cymbalta) [address] capsule Indications: Polyneuropathy Take 1 capsule (40 mg) by mouth Daily Do not crush or chew. 30 capsule 3 06/15/2024 08/16/2024 Discontinued (Side effects) glipiZIDE 10 mg oral tablet (3 sources) Sulfonylurea Start: 2022 take 1 tablet by mouth in the morning glipiZIDE (Glucotrol) 10 MG tablet Indications: Type 2 diabetes mellitus with diabetic polyneuropathy, without long-term current use of insulin (CMS/HCC) Take 1 tablet (10 mg) by mouth in the morning and 1 tablet (10 mg) in the evening. Take before meals. 200 tablet 1 10/02/2023 Active 3 ml insulin glargine 100 unt/ml pen injector (3 sources) Insulin Analog Start: 2023 End: 2023 insulin glargine (Lantus SoloStar) 100 UNIT/ML pen Indications: Type 2 diabetes mellitus with diabetic polyneuropathy, with long-term current use of insulin (CMS/HCC) Inject 30 Units under the skin at bedtime 27 mL 1 04/26/2024 10/23/2024 Active pregabalin 200 mg oral capsule (3 sources) Start: 2023 take 1 capsule by mouth in the morning, then take 1 capsule by mouth in the evening, then take 1 capsule by mouth at bedtime pregabalin (Lyrica) 200 MG capsule Indications: Type 2 diabetes mellitus with diabetic polyneuropathy, without long-term current use of insulin (CMS/HCC) , Diabetic polyneuropathy associated with type 2 diabetes mellitus (CMS/HCC) Take 1 capsule (200 mg) by mouth in the morning and 1 capsule (200 mg) in the evening and 1 capsule (200 mg) before bedtime. 90 capsule 2 04/05/2024 Active sildenafil 100 mg oral tablet (3 sources) Phosphodiesterase 5 Inhibitor Start: 2023 take 1 tablet by mouth once daily as needed sildenafil (Viagra) 100 MG tablet Indications: Other male erectile dysfunction Take 1 tablet (100 mg) by mouth Daily as needed for erectile dysfunction 30 tablet 2 04/21/2024 Active SITagliptin 100 mg oral tablet (3 sources) Dipeptidyl Peptidase 4 Inhibitor Start: 2023 End: 2023 take 1 tablet by mouth once daily SITagliptin (Januvia) 100 MG tablet Indications: Type 2 diabetes mellitus without complications (CMS/HCC) Take 1 tablet (100 mg) by mouth Daily 90 tablet 1 03/22/2024 09/18/2024 Active Problems Active Problems Problem Classification Problem Date Documented Date Episodic/Chronic Diabetes mellitus with complications (9 sources) Polyneuropathy due to type 2 diabetes mellitus; Translations: [Type 2 diabetes mellitus with diabetic polyneuropathy] Onset: 10-02-2023 04-21-2024 Chronic Diabetes mellitus without complication (1 source) Type 2 diabetes mellitus without complications; Translations: [TYPE 2 DM WITHOUT COMPLICATIONS] Onset: 03-13-2023 Chronic Disorders of lipid metabolism (3 sources) Hyperlipidemia; Translations: [Other hyperlipidemia] Onset: 02-19-2024 02-19-2024 Chronic Other endocrine disorders (3 sources) Hypotestosteronism; Translations: [Testicular hypofunction] Onset: 05-03-2024 05-03-2024 Chronic Other male genital disorders (3 sources) Other male erectile dysfunction; Translations: [Impotence of organic origin] Onset: 02-19-2024 02-19-2024 Chronic Other nervous system disorders (4 sources) Polyneuropathy, unspecified; Translations: [POLYNEUROPATHY UNSPECIFIED] Onset: 03-07-2023 Chronic Other nervous system disorders (8 sources) Polyneuropathy; Translations: [Polyneuropathy, unspecified] Onset: 02-19-2024 02-19-2024 Chronic Other nervous system disorders (4 sources) Paresthesia of skin; Translations: [PARESTHESIA OF SKIN] Onset: 02-03-2023 Episodic Other nervous system disorders (4 sources) Anesthesia of skin; Translations: [ANESTHESIA OF SKIN] Onset: 01-09-2023 Episodic Other nervous system disorders (2 sources) Paresthesia; Translations: [Paresthesia of skin] 08-16-2024 Episodic Other nutritional; endocrine; and metabolic disorders (3 sources) Weight increased; Translations: [Abnormal weight gain] Onset: 06-01-2024 06-01-2024 Episodic Past or Other Problems Problem Classification Problem Date Documented Da te Episodic/Chronic Other and unspecified benign neoplasm (3 sources) History of polyp of colon; Translations: [Hx of colonic polyps] Onset: 02-19-2024 02-19-2024 Episodic Other nervous system disorders (3 sources) Paresthesia of lower extremity; Translations: [Paresthesia of skin] Onset: 03-16-2024 03-16-2024 Episodic Other nutritional; endocrine; and metabolic disorders (3 sources) H/O: endocrine disorder; Translations: [Personal history of other endocrine, nutritional and metabolic disease] Onset: 05-03-2024 05-03-2024 Episodic Other screening for suspected conditions (not mental disorders or infectious disease) (3 sources) Patient encounter status; Translations: [Encounter for screening for lipoid disorders] Onset: 10-02-2023 10-02-2023 Episodic Results Test Name Value Interpretation Reference Range Facil ity CBC AUTO DIFFon 03-07-2023 BASO # 0.0 103/ul Normal 0.0-0.1 [facility] Comment on above: Performed By: #### C BC #### [facility] [address] [address] [address] Stella Mora Basophils/100 WBC (Bld) 0.4 % Normal 0.2-2.0 [facility] Comment on above: Performed By: #### C BC #### [facility] [address] [address] [address] Stella Mora EO # 0.1 103/ul Normal 0.0-0.7 [facility] Comment on above: Performed By: #### C BC #### [facility] [address] [address] [address] Stella Mora Eosinophils/100 WBC (Bld) 0.7 % Critically low 0.9-7.0 [facility] Comment on above: Performed By: #### C BC #### [facility] [address] [address] [address] Stella Mora Erythrocyte distribution width (RBC) [Ratio] 11.9 % Normal 11.0-15.0 [facility] Comment on above: Performed By: #### C BC #### [facility] [address] [address] [address] Stella Mora Hematocrit (Bld) [Volume fraction] 43.5 % Normal 42.0-54.0 [facility] Comment on above: Performed By: #### C BC #### [facility] [address] [address] [address] Stella Mora Hemoglobin (Bld) [Mass/Vol] 15.6 g/dL Normal 14.0-18.0 [facility] Comment on above: Performed By: #### C BC #### [facility] [address] [place] [address] Dr. Stella Mora IG # 0.01 10e3/ul Normal 0.00-0.03 [facility] Comment on above: Performed By: #### C BC #### [facility] [address] [place] [address] Dr. Stella Mora IG % 0.1 % Normal 0.0-0.5 [facility] Comment on above: Performed By: #### C BC #### [facility] [address] [place] [address] Dr. Stella Mora LYMPH # 1.7 103/ul Normal 1.2-3.8 [facility] Comment on above: Performed By: #### C BC #### [facility] [address] [place] [address] Dr. Stella Mora Lymphocytes/100 WBC (Bld) 24.5 % Normal 20.5-60.0 [facility] Comment on above: Performed By: #### C BC #### [facility] [address] [place] [address] Dr. Stella Mora MANUAL DIFF REQ NO Normal [facility] Comment on above: Performed By: #### C BC #### [facility] [address] [place] [address] Dr. Stella Mora MCH (RBC) [Entitic mass] 31.8 pg Normal 25.9-34.0 [facility] Comment on above: Performed By: #### C BC #### [facility] [address] [place] [address] Dr. Stella Mora MCHC (RBC) [Mass/Vol] 35.9 g/dL Critically high 29.9-35.2 [facility] Comment on above: Performed By: #### C BC #### [facility] [address] [place] [address] Dr. Stella Mora MCV (RBC) [Entitic vol] 88.6 fL Normal 80.0-94.0 [facility] Comment on above: Performed By: #### C BC #### [facility] [address] [place] [address] Dr. Stella Mora MONO # 0.5 103/ul Normal 0.3-0.8 [facility] Comment on above: Performed By: #### C BC #### [facility] [address] [address] [address] Stella Mora Monocytes/100 WBC (Bld) 6.9 % Normal 1.7-12.0 [facility] Comment on above: Performed By: #### C BC #### [facility] [address] [address] [address] Stella Mora NEUT # 4.6 103/ul Normal 1.4-6.5 [facility] Comment on above: Performed By: #### C BC #### [facility] [address] [place] [address] Dr. Stella Mora Neutrophils/100 WBC (Bld) 67.4 % Normal 43.0-75.0 [facility] Comment on above: Performed By: #### C BC #### [facility] [address] [place] [address] Dr. Stella Mora Platelet mean volume (Bld) [Entitic vol] 10.7 fL Normal 9.5-13.5 [facility] Comment on above: Performed By: #### C BC #### [facility] [address] [place] [address] Dr. Stella Mora PLT 242 103/ul Normal 150-450 [facility] Comment on above: Performed By: #### C BC #### [facility] [address] [place] [address] Dr. Stella Mora RBC 4.91 106/ul Normal 4.70-6.10 [facility] Comment on above: Performed By: #### C BC #### [facility] [address] [place] [address] Dr. Stella Mora WBC 6.8 103/ul Normal 4.0-11.0 [facility] Comment on above: Performed By: #### C BC #### [facility] [address] [place] [address] Dr. Stella Mora GLYCOHEMOGLOBIN A1Con 2022 ADA RECOMMENDATION SEE BELOW Normal [facility] Comment on above: Result Comment: ADA RECOMMENDED LIMIT 4.0 - 6.0 ADA THERAPEUTIC TARGET < 7.0 ACTION SUGGESTED > 7.0 Performed By: #### A 1C #### [facility] [address] [place] [address] Dr. Stella Mora Glucose [Mass/Vol] 309 mg/dL Normal [facility] Comment on above: Performed By: #### A 1C #### [facility] [address] [place] [address] Dr. Stella Mora HbA1c (Bld) [Mass fraction] 12.4 % Critically high 4.5-6.2 [facility] Comment on above: Performed By: #### A 1C #### [facility] [address] [place] [address] Dr. Stella Mora PROF 14(COMP METB)on 023 Albumin [Mass/Vol] 4.0 g/dL Normal 3.4-5.0 [facility] Comment on above: Performed By: #### C MP #### [facility] [address] [place] [address] Dr. Stella Mora Albumin/Globulin [Mass ratio] 0.9 {ratio} Normal [facility] Comment on above: Performed By: #### C MP #### [facility] [address] [place] [address] Dr. Stella Mora ALP [Catalytic activity/Vol] 103 U/L Normal 46-116 [facility] Comment on above: Performed By: #### C MP #### [facility] [address] [place] [address] Dr. Stella Mora ALT [Catalytic activity/Vol] 45 U/L Normal 16-63 [facility] Comment on above: Performed By: #### C MP #### [facility] [address] [place] [address] Dr. Stella Mora Anion gap [Moles/Vol] 9.5 mmol/L Normal [facility] Comment on above: Performed By: #### C MP #### [facility] [address] [place] [address] Dr. Stella Mora AST [Catalytic activity/Vol] 18 U/L Normal 15-37 [facility] Comment on above: Performed By: #### C MP #### [facility] [address] [address] [address] Stella Mora Bilirubin [Mass/Vol] 1.9 mg/dL Critically high 0.2-1.0 [facility] Comment on above: Performed By: #### C MP #### [facility] [address] [address] [address] Stella Mora Calcium [Mass/Vol] 9.1 mg/dL Normal 8.5-10.1 [facility] Comment on above: Performed By: #### C MP #### [facility] [address] [address] [address] Stella Mora Chloride [Moles/Vol] 98 mmol/L Normal 98-107 [facility] Comment on above: Performed By: #### C MP #### [facility] [address] [place] [address] Dr. Stella Mora CO2 [Moles/Vol] 28.4 mmol/L Normal 21.0-32.0 [facility] Comment on above: Performed By: #### C MP #### [facility] [address] [place] [address] Dr. Stella Mora Creatinine [Mass/Vol] 0.87 mg/dL Normal 0.70-1.30 [facility] Comment on above: Performed By: #### C MP #### [facility] [address] [place] [address] Dr. Stella Mora EGFR-AF KUWAITI >60 Normal >=[address] [facility] Comment on above: Performed By: #### C MP #### [facility] [address] [place] [address] Dr. Stella Mora EGFR-NON AF [place]I >60 Normal >=60 [facility] Comment on above: Performed By: #### C MP #### [facility] [address] [place] [address] Dr. Stella Mora Globulin (S) [Mass/Vol] 4.3 g/dL Normal [facility] Comment on above: Performed By: #### C MP #### [facility] [address] [place] [address] Dr. Stella Mora Glucose [Mass/Vol] 258 mg/dL Critically high 74-106 [facility] Comment on above: Performed By: #### C MP #### [facility] [address] [address] [address] Stella Mora Potassium [Moles/Vol] 3.9 mmol/L Normal 3.5-5.1 [facility] Comment on above: Performed By: #### C MP #### [facility] [address] [address] [address] Stella Mora Protein [Mass/Vol] 8.3 g/dL Critically high 6.4-8.2 [facility] Comment on above: Performed By: #### C MP #### [facility] [address] [place] [address] Dr. Stella Mora Sodium [Moles/Vol] 132 mmol/L Critically low 136-145 [facility] Comment on above: Performed By: #### C MP #### [facility] [address] [place] [address] Dr. Stella Mora Urea nitrogen [Mass/Vol] 15.0 mg/dL Normal 7.0-18.0 [facility] Comment on above: Performed By: #### C MP #### [facility] [address] [place] [address] Dr. Stella Mora Urea nitrogen/Creatinine [Mass ratio] 17.2 mg/mg Normal [facility] Comment on above: Performed By: #### C MP #### [facility] [address] [place] [address] Dr. Stella Mora VIT B12 AND FOLATEon 023 Cobalamin (Vitamin B12) [Mass/Vol] 688.0 pg/mL Normal 193.0-986.0 [facility] Comment on above: Performed By: #### B 12FOL #### [facility] [address] [place] [address] Dr. Stella Mora FOLATE 20.10 ng/mL Normal 8.60-58.90 [facility] Comment on above: Performed By: #### B 12FOL #### [facility] [address] [address] [address] Stella Mora XR FOOT URBANO MIN [...] by: POORNIMA RUSSELL Date: 2023-01-09 15:26 Normal [facility] Patient Letter FTon 2021 Patient Letter FT November 12, 2021 LAURA ISAACS JR [address] [place] [phone] LAURA ISAACS JR 1955 Dear Laura, This is a SECOND ATTEMPT to remind you that you are due for an appointment with [facility]. Please contact our office at [phone] to schedule an appointment at your earliest convenience. Thank you, [facility] Reminderson 11-12-2021 Reminders -- From: Saritha Garcia To: MEAGHAN - Reminders/Recalls; Sent: 05/30/2021 10:58:45 EDT Show up: 09/03/2021 10:58:00 EDT Subject: Ambulatory Reminder Due Date/Time: 10/13/2021 10:58:00 EST Reminder/Recall 5 year colon recall salam 10/13/2021 first recall letter second recall letter Normal [facility] Patient Letter FTon 2020 Patient Letter FT September 03, 2021 LAURA ISAACS JR [address] [place] [id number] LAURA ISAACS JR 1955 Dear Laura, This is a reminder that you are due for an appointment with [facility]. Please contact our office at [phone] to schedule an appointment at your earliest convenience. Thank you, [facility] Normal [facility] Testosterone Free And Total, Adult Maleon 05-04-2019 Sex Hormone Binding Globulin 37 nmol/L Normal 11-80 [facility] Comment on above: Result Comment: REFE RENCE INTERVAL: Sex Hormone Binding Globulin Access complete set of age- and/or gender-specific reference intervals for this test in the [facility] ([facility]). Testosterone, Adult Male 194 ng/dL Low 300-720 [facility] Comment on above: Result Comment: REFE RENCE INTERVAL: Testosterone, Adult Male Access complete set of age- and/or gender-specific reference intervals for this test in the [facility] ([facility]). Testosterone, Free Calculation 32 pg/mL Low 47-244 [facility] Comment on above: Result Comment: INTE RPRETIVE [...] reference intervals for this test in the [facility] ([facility]). Testosterone, Percentage Free 1.6 % Normal 1.6-2.9 [facility] Comment on above: Result Comment: Perf ormed by [facility], [address] [facility], [place] [address] [email or web address], Eleazar Baker MD - Lab. Director Basic Metabolic Panelon Anion gap [Moles/Vol] 13 mmol/L Normal 9-15 [facility] Comment on above: Performed By: #### B MP ####[facility] [facility] [place] [phone] Calcium [Mass/Vol] 8.8 mg/dL Normal 8.5-9.9 [facility] Comment on above: Performed By: #### B MP ####[facility] [place] [phone] Chloride [Moles/Vol] 102 mmol/L Normal 95-107 [facility] Comment on above: Performed By: #### B MP ####[facility] [facility] [phone] CO2 [Moles/Vol] 24 mmol/L Normal 20-31 [facility] Comment on above: Performed By: #### B MP ####[facility] [facility] [phone] Creatinine [Mass/Vol] 0.88 mg/dL Normal 0.70-1.20 [facility] Comment on above: Performed By: #### B MP ####[facility] [facility] [phone] GFR/1.73 sq M predicted among blacks MDRD (S/P/Bld) [Vol rate/Area] mL/min/{1.73_m2} Normal >60 [facility] Comment on above: Result Comment: >60 mL/min/1.73m2 EGFR, calc. for ages 18 and older using the MDRD formula (not corrected for weight), is valid for stable renal function. Performed By: #### B MP ####[facility] [facility] [phone] GFR/1.73 sq M.predicted MDRD (S/P/Bld) [Vol rate/Area] mL/min/{1.73_m2} Normal >60 [facility] Comment on above: Result Comment: >60 mL/min/1.73m2 EGFR, calc. for ages 18 and older using the MDRD formula (not corrected for weight), is valid for stable renal function. Performed By: #### B MP ####[facility] [facility] [phone] Glucose [Mass/Vol] 161 mg/dL Critically high 70-99 [facility] Comment on above: Performed By: #### B MP ####[facility] [facility] [phone] Potassium [Moles/Vol] 4.0 mmol/L Normal 3.4-4.9 [facility] Comment on above: Performed By: #### B MP ####[facility] [facility] [phone] Sodium [Moles/Vol] 139 mmol/L Normal 135-144 [facility] Comment on above: Performed By: #### B MP ####[facility] [facility] [phone] Urea nitrogen [Mass/Vol] 21 mg/dL Normal 8-23 [facility] Comment on above: Performed By: #### B MP ####[facility] [facility] [phone] Hemoglobin A1con 05-03-2019 HbA1c (Bld) [Mass fraction] 7.0 % Critically high 4.8-5.9 [facility] Comment on above: Performed By: #### A 1C ####[facility] [facility] [facility] [phone] PSA Diagnosticon 05-03-2019 PSA Diagnostic 0.68 ng/mL Normal 0.00-5.40 [facility] Comment on above: Performed By: #### P SADG ####[facility] [place] [phone] UR Microalbumin/Creatinine R atio Randomon 05-03-2019 Microalbumin/creatini ne Ratio 124.0 mg/G Critically high 0.0-30.0 [facility] Comment on above: Performed By: #### U MACR ####[facility] [phone] UR Creatinine Random 37.1 mg/dL Normal Not Establ [facility] Comment on above: Performed By: #### U MACR ####[facility] [facility] [address] [place] [phone] UR Microalbumin Random 4.60 mg/dL Critically high Not [facility] Comment on above: Performed By: #### U MACR ####[facility] [facility] [phone] Testosterone Free And Total, Adult Maleon 02-16-2019 Sex Hormone Binding Globulin 39 nmol/L Normal 11-80 [facility] Comment on above: Result Comment: REFE RENCE INTERVAL: Sex Hormone Binding Globulin Access complete set of age- and/or gender-specific reference intervals for this test in the [facility] ([facility]). Testosterone, Adult Male 165 ng/dL Low 300-720 [facility] Comment on above: Result Comment: REFE RENCE INTERVAL: Testosterone, Adult Male Access complete set of age- and/or gender-specific reference intervals for this test in the [facility] ([facility]). Testosterone, Free Calculation 26 pg/mL Low 47-244 [facility] Comment on above: Result Comment: INTE RPRETIVE [...] reference intervals for this test in the [facility] ([facility]). Testosterone, Percentage Free 1.6 % Normal 1.6-2.9 [facility] Comment on above: Result Comment: Perf ormed by [facility], [address] [place] [id number] [email or web address], Eleazar Baker MD - Lab. Director UR Microalbumin/Creatinine R atio Randomon 02-16-2019 Microalbumin/creatini ne Ratio 126.0 mg/G Critically high 0.0-30.0 [facility] Comment on above: Performed By: #### U MACR ####[facility] [facility] [phone] UR Creatinine Random 48.4 mg/dL Normal Not Establ [facility] Comment on above: Performed By: #### U MACR ####[facility] [facility] [phone] UR Microalbumin Random 6.10 mg/dL Critically high Not Establ [facility] Comment on above: Performed By: #### U MACR ####[facility] [place] [phone] Basic Metabolic Panelon 04- Anion gap [Moles/Vol] 12 mmol/L Normal 9-15 [facility] Comment on above: Result Comment: Effe ctive: 12/10/2018 New reference range for this analyte has been established. Performed By: #### B MP #### [facility] [address] [place] [address] Calcium [Mass/Vol] 9.0 mg/dL Normal 8.5-9.9 [facility] Comment on above: Result Comment: Effe ctive: 12/10/2018 New reference range for this analyte has been established. Performed By: #### B MP #### [facility] [address] [place] [address] Chloride [Moles/Vol] 100 mmol/L Normal 95-107 [facility] Comment on above: Result Comment: Effe ctive: 12/10/2018 New reference range for this analyte has been established. Performed By: #### B MP #### [facility] [address] [place] [address] CO2 [Moles/Vol] 27 mmol/L Normal 20-31 [facility] Comment on above: Result Comment: Effe ctive: 12/10/2018 New reference range for this analyte has been established. Performed By: #### B MP #### [facility] [address] [place] [address] Creatinine [Mass/Vol] 0.82 mg/dL Normal 0.70-1.20 [facility] Comment on above: Performed By: #### B MP #### [facility] [address] [place] [address] GFR/1.73 sq M predicted among blacks MDRD (S/P/Bld) [Vol rate/Area] mL/min/{1.73_m2} Normal >60 [facility] Comment on above: Result Comment: >60 mL/min/1.73m2 EGFR, calc. for ages 18 and older using the MDRD formula (not corrected for weight), is valid for stable renal function. Performed By: #### B MP #### [facility] [address] [place] [address] GFR/1.73 sq M.predicted MDRD (S/P/Bld) [Vol rate/Area] mL/min/{1.73_m2} Normal >60 [facility] Comment on above: Result Comment: >60 mL/min/1.73m2 EGFR, calc. for ages 18 and older using the MDRD formula (not corrected for weight), is valid for stable renal function. Performed By: #### B MP #### [facility] [address] [place] [address] Glucose [Mass/Vol] 95 mg/dL Normal 70-99 [facility] Comment on above: Result Comment: Effe ctive: 12/10/2018 New reference range for this analyte has been established. Performed By: #### B MP #### [facility] [address] [place] [address] Potassium [Moles/Vol] 4.0 mmol/L Normal 3.4-4.9 [facility] Comment on above: Result Comment: Effe ctive: 12/10/2018 New reference range for this analyte has been established. Performed By: #### B MP #### [facility] [address] [place] [address] Sodium [Moles/Vol] 139 mmol/L Normal 135-144 [facility] Comment on above: Result Comment: Effe ctive: 12/10/2018 New reference range for this analyte has been established. Performed By: #### B MP #### [facility] [address] [place] [address] Urea nitrogen [Mass/Vol] 14 mg/dL Normal 8-23 [facility] Comment on above: Performed By: #### B MP #### [facility] [address] [place] [address] Hemoglobin A1con 02-15-2019 HbA1c (Bld) [Mass fraction] 6.9 % Critically high 4.8-5.9 [facility] Comment on above: Performed By: #### A 1C #### [facility] [address] [place] [address] PSA Diagnosticon 02-15-2019 PSA Diagnostic 0.70 ng/mL Normal 0.00-5.40 [facility] Comment on above: Performed By: #### P SADG #### [facility] [address] [place] [address] Testosterone Free And Total, Adult Maleon 11-19-2018 Sex Hormone Binding Globulin 38 nmol/L Normal 11-80 [facility] Comment on above: Result Comment: REFE RENCE INTERVAL: Sex Hormone Binding Globulin Access complete set of age- and/or gender-specific reference intervals for this test in the [facility] Test [facility] ([facility]). Testosterone, Adult Male 560 ng/dL Normal 300-720 [facility] Comment on above: Result Comment: REFE RENCE INTERVAL: Testosterone, Adult Male Access complete set of age- and/or gender-specific reference intervals for this test in the [facility] ([facility]). Testosterone, Free Calculation 100 pg/mL Normal 47-244 [facility] Comment on above: Result Comment: INTE RPRETIVE [...] reference intervals for this test in the [facility] ([facility]). Testosterone, Percentage Free 1.8 % Normal 1.6-2.9 [facility] Comment on above: Result Comment: Perf ormed by [facility], [address] [facility], [place] [address] [email or web address], Eleazar Baker MD - Lab. Director Basic Metabolic Panelon 11-03 Anion gap [Moles/Vol] 11 mmol/L Normal 7-13 [facility] Calcium [Mass/Vol] 8.8 mg/dL Normal 8.6-10.2 [facility] Chloride [Moles/Vol] 101 mmol/L Normal 98-107 [facility] CO2 [Moles/Vol] 26 mmol/L Normal 22-29 [facility] Creatinine [Mass/Vol] 1.13 mg/dL Normal 0.70-1.20 [facility] GFR/1.73 sq M predicted among blacks MDRD (S/P/Bld) [Vol rate/Area] mL/min/{1.73_m2} Normal >60 [facility] Comment on above: Result Comment: >60 mL/min/1.73m2 EGFR, calc. for ages 18 and older using the MDRD formula (not corrected for weight), is valid for stable renal function. GFR/1.73 sq M.predicted MDRD (S/P/Bld) [Vol rate/Area] mL/min/{1.73_m2} Normal >60 [facility] Comment on above: Result Comment: >60 mL/min/1.73m2 EGFR, calc. for ages 18 and older using the MDRD formula (not corrected for weight), is valid for stable renal function. Glucose [Mass/Vol] 142 mg/dL Critically high 74-109 [facility] Potassium [Moles/Vol] 4.1 mmol/L Normal 3.5-5.1 [facility] Sodium [Moles/Vol] 138 mmol/L Normal 132-144 [facility] Urea nitrogen [Mass/Vol] 14 mg/dL Normal 8-23 [facility] CBC With Platelet No Differe ntialon 11-17-2018 Erythrocyte distribution width (RBC) [Ratio] 12.6 % Normal 11.5-14.5 [facility] Hematocrit (Bld) [Volume fraction] 47.7 % Normal 42.0-52.0 [facility] Hemoglobin (Bld) [Mass/Vol] 17.0 g/dL Normal 14.0-18.0 [facility] MCH (RBC) [Entitic mass] 32.8 pg Critically high 27.0-31.3 [facility] MCHC (RBC) [Mass/Vol] 35.7 % Normal 33.0-37.0 [facility] MCV (RBC) [Entitic vol] 91.9 fL Normal 80.0-100.0 [facility] Platelets (Bld) [#/Vol] 178 10*3/uL Normal 130-400 [facility] RBC (Bld) [#/Vol] 5.19 10*6/uL Normal 4.70-6.10 [facility] WBC (Bld) [#/Vol] 6.4 10*3/uL Normal 4.8-10.8 [facility] Hemoglobin A1con 11-17-2018 HbA1c (Bld) [Mass fraction] 7.5 % Critically high 4.8-5.9 [facility] Testosterone Free And Total, Adult Maleon 08-19-2018 Sex Hormone Binding Globulin 45 nmol/L Normal 11-80 [facility] Comment on above: Result Comment: REFE RENCE INTERVAL: Sex Hormone Binding Globulin Access complete set of age- and/or gender-specific reference intervals for this test in the [facility] Test [facility] ([facility]). Testosterone, Adult Male >1500 Critically high 300-720 [facility] Comment on above: Result Comment: REFE RENCE INTERVAL: Testosterone, Adult Male Access complete set of age- and/or gender-specific reference intervals for this test in the [facility] ([facility]). Testosterone, Free Calculation See Note Normal 47-244 [facility] Comment on above: Result Comment: The Free [...] reference intervals for this test in the [facility] ([facility]). Testosterone, Percentage Free See Note Normal 1.6-2.9 [facility] Comment on above: Result Comment: The percent Free Testosterone result is greater than 2.0 percent. Performed by [facility], [address] [place] [address] [email or web address], Eleazar Baker MD - Lab. Director Basic Metabolic Panelon 08-03 Anion gap [Moles/Vol] 16 mmol/L Critically high 7-13 [facility] Calcium [Mass/Vol] 8.9 mg/dL Normal 8.6-10.2 [facility] Chloride [Moles/Vol] 100 mmol/L Normal 98-107 [facility] CO2 [Moles/Vol] 24 mmol/L Normal 22-29 [facility] Creatinine [Mass/Vol] 0.89 mg/dL Normal 0.70-1.20 [facility] GFR/1.73 sq M predicted among blacks MDRD (S/P/Bld) [Vol rate/Area] mL/min/{1.73_m2} Normal >60 [facility] Comment on above: Result Comment: >60 mL/min/1.73m2 EGFR, calc. for ages 18 and older using the MDRD formula (not corrected for weight), is valid for stable renal function. GFR/1.73 sq M.predicted MDRD (S/P/Bld) [Vol rate/Area] mL/min/{1.73_m2} Normal >60 [facility] Comment on above: Result Comment: >60 mL/min/1.73m2 EGFR, calc. for ages 18 and older using the MDRD formula (not corrected for weight), is valid for stable renal function. Glucose [Mass/Vol] 82 mg/dL Normal 74-109 [facility] Potassium [Moles/Vol] 4.0 mmol/L Normal 3.5-5.1 [facility] Sodium [Moles/Vol] 140 mmol/L Normal 132-144 [facility] Urea nitrogen [Mass/Vol] 10 mg/dL Normal 8-23 [facility] Hemoglobin A1con 08-17-2018 HbA1c (Bld) [Mass fraction] 6.9 % Critically high 4.8-5.9 [facility] Vital Signs Date Time Vital Sign Value Performing Clinician Faci litfrancy 08-16-2024 12:53-0400 Body height 177.8 cm Alla Santana SENIOR PROJECT COORDINATOR Work Phone: [facility] 08-16-2024 12:53-0400 Body mass index (BMI) [Ratio] 28.81 kg/m2 Alla Santana SENIOR PROJECT COORDINATOR Work Phone: [facility] 08-16-2024 12:53-0400 Body weight 91.08 kg Alla Santana SENIOR PROJECT COORDINATOR Work Phone: [facility] 08-16-2024 12:53-0400 Diastolic blood pressure 86 mm[Hg] Alla Santana SENIOR PROJECT COORDINATOR Work Phone: [facility] 08-16-2024 12:53-0400 Heart rate 82 /min Alla Santana SENIOR PROJECT COORDINATOR Work Phone: [facility] 08-16-2024 12:53-0400 SaO2% (BldA) [Mass fraction] 97 % Alla Santana SENIOR PROJECT COORDINATOR Work Phone: [facility] 08-16-2024 12:53-0400 Systolic blood pressure 142 mm[Hg] Alla Santana SENIOR PROJECT COORDINATOR Work Phone: [facility] Healthcare Encounters Encounter Date Encounter Type Care Provider Facility Start: 08-16-2024 End: 08-16-2024 Bamboo flowsheet Alla Santana SENIOR PROJECT COORDINATOR Work Phone: [facility] [address] [facility] Start: 08-16-2024 End: 08-16-2024 Bamboo flowsheet Alla Santana SENIOR PROJECT COORDINATOR Work Phone: [facility] [address] Start: 08-16-2024 End: 08-16-2024 Office outpatient visit 15 minutes Alla Santana SENIOR PROJECT COORDINATOR [facility] Comment on above: Polyneuropathy (Prim grant Dx); Paresthesia Start: 08-16-2024 End: 08-16-2024 ambulatory ALLA SANTANA Not Available Start: 06-15-2024 End: 06-15-2024 ambulatory ALLA SANTANA Not Available Start: 06-01-2024 End: 06-01-2024 ambulatory BOWEN FAWWAD Not Available Start: 04-28-2024 End: 04-28-2024 ambulatory ALLA SANTANA Not Available Start: 04-21-2024 End: 04-21-2024 ambulatory SHAIKH MILAGROSD Not Available Start: 04-01-2024 End: 04-01-2024 ambulatory ALISSA MURO Not Available Start: 02-19-2024 End: 02-19-2024 ambulatory BOWEN FAWWAD Not Available Start: 10-02-2023 End: 10-02-2023 ambulatory BOWEN FAWWAD Not Available Start: 10-02-2023 Patient encounter procedure Alla Santana SENIOR PROJECT COORDINATOR Work Phone: [facility] Healthcare Start: 03-17-2023 End: 03-18-2023 ambulatory BOWEN H FAWWAD Facility:H1 Start: 03-07-2023 End: 03-08-2023 ambulatory BOWEN H FAWWAD Facility:[facility] Start: 02-03-2023 End: 02-04-2023 ambulatory LAYNE CROFT Facility:[facility] Start: 01-09-2023 End: 01-10-[address] POORNIMA RUSSELL Facility:[facility] Procedures Date Procedure Procedure Detail Performing Clinician Start: 10-13-2016 Colonoscopy Alla ritter SENIOR PROJECT COORDINATOR Work Phone: Plan of Treatment Date Care Activity Detail Author Start: 10-13-2026 Screening for malign ant neoplasm of colon [facility] Healthcare Start: 01-01-2025 Glaucoma screening Diabetes: R etinopathy Screening [facility] Start: 11-29-2024 End: 11-29-2024 Patient encounter procedure 11/29/2024 1:20 PM EST Office Visit [facility] [address] [place] [phone] Alla Santana NP [address] [place] [address] [facility] [address] Start: 11-06-2024 Hemoglobin A1c measurement Diabetes: Hemoglobin A1C [facility] Start: 10-02-2024 Pneumococcal Vaccine : 65+ Years (1 of 2 - PCV) Pneumococcal Vaccine: 65+ Years (1 of 2 - PCV) [facility] Comment on above: Postponed from 08/10 (Patient Refused) Start: 09-01-2024 End: 09-01-2024 Patient encounter procedure 09/01/2024 2:00 PM EDT Office Visit [facility] [address] [place] [phone] Kaylyn Kelly NP [address] [place] [address] [facility] Start: 08-26-2024 End: 08-26-2024 Patient encounter procedure 08/26/2024 11:20 AM EDT Office Visit [facility] [address] [place] [phone] Earnest Faria MD [address] [place] [address] [facility] Start: 08-16-2024 End: 08-16-2024 Patient encounter procedure 08/16/2024 1:00 PM EDT [facility] [address] [place] [address] Alla Santana NP [address] [place] [phone] Polyneuropathy (Primary Dx); Paresthesia [facility] [address] [facility] Comment on above: Polyneuropathy (Prim grant Dx); Paresthesia Start: 07-26-2024 Urine screening for protein Diabetes: Urine Protein Screening [facility] Start: 07-04-2024 Influenza vaccination Influenza Vacc ine (#1) [facility] Start: 1955 Screening for malign ant neoplasm of colon [facility] Immunizations Immunization Date Immunization Notes Care Provider Fa polly 10-13-2021 influenza, injectabl e, quadrivalent, preservative free Alla Santana SENIOR PROJECT COORDINATOR Work Phone: [facility] 10-13-2021 influenza virus vacc ine, unspecified formulation Alla Santana SENIOR PROJECT COORDINATOR Work Phone: [facility] 08-20-2016 influenza, injectabl e, quadrivalent, contains preservative Alla Santana NP Work Phone: [facility] Healthcare Payers Date Payer Category Payer Medicare MEDICARE [id number] 2023 Medicare [id number] 2023 [facility] [id number] 2023 Unknown [id number] 1957 Unknown [id number] [id number]. 2.593 1957 Unknown [id number] 2.16840.1.945793.3.579. 2.593 1957 Unknown [id number] 2.16840.1.940068.3.579. 2.593 1957 Unknown [id number] 2.16.840.1.246297.3.579. 2.593 1957 Unknown [id number] 2.16840.1.321533.3.579. 2.1259 1957 Unknown [id number] 2.16.840.1.136340.3.579. 2.1259 1957 Unknown [id number] 2.16.840.1.637444.3.579. 2.1259 1957 Unknown [id number] 2.16.840.1.335034.3.579. 2.1259 1957 Unknown [id number] 2.16.840.1.164584.3.579. 2.1259 1957 Unknown [id number] 2.16.840.1.121236.3.579. 2.1259 1957 Unknown [id number] 2.16.840.1.979048.3.579. 2.1259 1957 Unknown [id number] [id number]. 2.1259 Unknown [id number] Social History Date Type Detail Facility Start: 04-21-2024 Tobacco smoking stat [facility] Ex-smoker [facility] History of tobacco use Current smoker [facility] History of tobacco use Cigarette Smoker [facility] Start: 04-21-2024 Tobacco use and exposure Smokeless tobacco non-user [facility] Start: 2024 End: 08-16-2024 Alcoholic beverage intake Lifetime non-drinker (finding) [facility] Start: 06-01-2024 End: 06-15-2024 History of Social function [facility] Start: 06-01-2024 End: 06-15-2024 Tobacco use panel [facility] Start: 1955 Sex assigned at Not on file [facility] NEGATED: Highlighted rowStart: NINF History of tobacco use Passive smoker [facility] Medical Equipment Procedure Code Equipment Code Equipment Origin al Text Equipment Identifier Dates Inject 1 each un charlene the skin Daily Use as instructed [id number] Start: 01-01-2024 End: 12-31-2024 History of Present illness Narrative 08-16-2024 Alla Santana NP - 08/16/2024 1:00 PM EDT Note Date & Type Note Facility 08-16-2024 History of Presen t illness Narrative Images from the original note were not included. Alla Santana NP Chief Complaint Patient presents with Peripheral Neuropathy Subjective Gene Adam is a 69 y.o. male. HPI The patient presents today for follow up. At the prior appointment, duloxetine dose was increased, and referral to vascular surgery was placed. The patient states he stopped taking duloxetine approximately 3 weeks ago on his own. He states he felt, lazy, and lacked motivation while taking the medication. Since stopping duloxetine, he believes his energy levels and motivation have returned to normal. He has a new patient appointment scheduled with vascular surgery on 09/02/2024. The patient continues to have numbness in the bilateral feet (extending from near the arch to the toes). Numbness can extend up to the bilateral knees approximately once per week. He denies any apparent aggravating or relieving factors. He continues to take Lyrica 200 mg twice a day. He denies any significant back or lower extremity pain. He denies numbness or paresthesias in the proximal lower extremities. He denies bowel/bladder dysfunction, buckling of the knees, saddle anesthesia, or falls. No further concerns reported. Review of Systems Constitutional: Negative for appetite change, chills, fatigue, fever and unexpected weight change. HENT: Negative for trouble swallowing and voice change. Eyes: Negative for visual change, double vision, or loss of vision Respiratory: Negative for cough, shortness of breath and wheezing. Cardiovascular: Negative for chest pain and palpitations. Gastrointestinal: Negative for abdominal pain, blood in stool, nausea and vomiting. Musculoskeletal: Positive for gait problem (imbalance). Negative for arthralgias and myalgias. Neurological: Positive for weakness (mild, bilateral lower extremities) and numbness (and paresthesias in the distal lower extremities). Negative for dizziness, tremors, seizures, syncope, facial asymmetry, speech difficulty, light-headedness and headaches. Psychiatric/Behavioral: Negative for confusion, hallucinations and suicidal ideas. The patient is not nervous/anxious. Medication List atorvastatin 20 MG tablet; Commonly known as: Lipitor dorzolamide-timolol 2-0.5 % ophthalmic solution; Commonly known as: Cosopt EYE DROPS OP Seeker Wireless Nakia 2 Stewart device FreeStyle Nakia 2 Sensor misc glipiZIDE 10 MG tablet; Commonly known as: Glucotrol insulin pen needle 31G x 4 mm misc; Inject 1 each under the skin Daily Use as instructed Lantus SoloStar 100 UNIT/ML pen; Generic drug: insulin glargine; Inject 30 Units under the skin at bedtime pregabalin 200 MG capsule; Commonly known as: Lyrica sildenafil 100 MG tablet; Commonly known as: Viagra SITagliptin 100 MG tablet; Commonly known as: Januvia Trulicity 1.5 MG/0.5ML solution pen-injector; Generic drug: dulaglutide; Inject 1.5 mg under the skin 1 (one) time per week Past Medical History: Diagnosis Date Arthritis Autoimmune disease (CMS/HCC) Decreased libido Hypopituitarism (CMS/HCC) Peripheral neuropathy Poorly controlled type 2 diabetes mellitus (CMS/HCC) Pulse regularly irregular Type 2 diabetes mellitus (CMS/HCC) No past surgical history on file. Family History Problem Relation Name Age of Onset Diabetes Mother Diabetes Father Social History Tobacco Use Smoking status: Former Types: Cigarettes Passive exposure: Never Smokeless tobacco: Never Substance Use Topics Alcohol use: Never Allergies: Amoxicillin-pot clavulanate, Empagliflozin-linagliptin, and Metformin and related Vitals: 08/16/24 1253 BP: 142/86 Pulse: 82 SpO2: 97% Body mass index is 28.81 kg/m . weight: 200 lb 12.8 oz Neurologic exam: Mental status and general appearance: Awake and alert with unlabored respirations. Oriented to person, place, and time. Recent and remote memory are intact. Speech is clear and fluent without aphasia. Speech is non-dysarthric. Attention and concentration are normal. Fund of knowledge is appropriate for level of education. Cranial nerves: CN II: Visual acuity is normal. Visual valdovinos full to confrontation. CN III, IV, : Pupils are equal, round, and reactive to light. Extraocular movements intact. No ptosis present. CN V: Facial sensation is normal. CN VII: Full and symmetric facial movement. CN VIII: Hearing is normal to finger rub bilaterally. CN IX and X: Palate elevates symmetrically. CN XI: Shoulder shrug is normal bilaterally. CN XII: Tongue is midline without atrophy or fasciculation. Motor: RUE strength deltoid , biceps , triceps , wrist extensors , wrist flexor , and global program manager strength 5/5. LUE strength deltoid , biceps , triceps , wrist extensors , wrist flexor , and global program manager strength 5/5. RLE strength iliopsoas, quadriceps, tibialis anterior, plantar flexion, and dorsiflexion strength 5/5. LLE strength iliopsoas, quadriceps, tibialis anterior, plantar flexion, and dorsiflexion strength 5/5. Tone and bulk are normal. Sensory: Sensation is intact to light touch throughout all four extremities. Sensation is intact to temperature in all extremities. Reduced in the distal lower extremities. Reflexes: RUE biceps reflex 1+ , brachioradialis reflex 0. LUE biceps reflex 0 , brachioradialis reflex 0. RLE Knee reflex 0. LLE Knee reflex 0. Coordination: [id number] testing normal. Rapid alternating movements are normal. Gait: Wide based. Appears slightly antalgic. Review and summary of old records: Hemoglobin A1C on 05/19/24: 6.4%. TSH on 04/28/24: 1.644. Ferritin level on 04/19/24: 406 (elevated). EMG of the BLE on 01/16/23: A generalized process such as polyneuropathy, which is axon loss in type and severe in degree electrically. Hemoglobin A1c on 02/02/24: 9.1%. Assessment/Plan Diagnoses and all orders for this visit: Polyneuropathy The patient has polyneuropathy in the bilateral lower extremities as identified on EMG from 01/16/23 (severe, axonal loss). He reports uncomfortable paresthesias and numbness in the distal lower extremities. I feel this is likely secondary to poorly controlled diabetes mellitus type II. He is prescribed Lyrica 200 mg twice a day (reduced from 200 mg PO TID due to weight gain) which has provided benefit for neuropathic pain and paresthesias. Duloxetine was helpful, however, the patient discontinued this on his own, as he reports reduced motivation while taking the medication. PLAN: - I again recommended laboratory evaluation to assess for other potential causes of polyneuropathy in addition to his diabetes. The patient declined - Stop duloxetine - Continue Lyrica (managed by outside provider) - I discussed alternative pharmacologic treatment options for neuropathic pain with the patient including amitriptyline, venlafaxine, and capsaicin. The patient declines to try any further medications at this time - Follow up closely with primary care provider for adequate blood glucose control - Fall prevention measures Paresthesia The patient has numbness and paresthesias in the distal bilateral lower extremities which is likely related to polyneuropathy as detailed above. However, he interestingly mentions that sildenafil improves his paresthesias. He has been referred to vascular surgery to evaluate for a potential vascular issue contributing to his symptoms. PLAN: - I advised the patient to follow up with vascular surgery for further evaluation and treatment as indicated. He reportedly has an appointment scheduled with their team on 09/02/2024 - Physical therapy and consideration of MRI of the lumbar spine have been recommended to help rule out a radicular component to the patient's symptoms. Patient declined for now Diagnosis and treatment options discussed in detail. All questions answered. The patient verbalizes understanding and is agreeable to the plan. Discussion in layman's terms. Follow up in the office within 3 months; sooner if needed for new or worsening symptoms. Alla Santana NP [facility] Advanced Neurology documented in this encounter [facility] Instructions 08-16-2024 Patient Instructions Note Date & Type Note Facility 08-16-2024 Instructions Alla Santana NP - 08/16/2024 1:00 PM EDT - Stop duloxetine documented in this encounter [facility] Evaluation note Note Date & Type Note Facility Evaluation note Diagnosis Type 2 diabetes mellitus with diabetic polyneuropathy, without long-term current use of insulin ([facility]/HCC)- Primary Screening for hyperlipidemia Screening for lipoid disorders Annual physical exam Routine general medical examination at a health care facility Diabetic polyneuropathy associated with type 2 diabetes mellitus (CMS/HCC) Type 2 diabetes mellitus with diabetic polyneuropathy, without long-term current use of insulin (CMS/HCC)- Primary Diabetic polyneuropathy associated with type 2 diabetes mellitus (CMS/HCC) Other hyperlipidemia (CMS/HCC) Other male erectile dysfunction Type 2 diabetes mellitus with diabetic polyneuropathy, with long-term current use of insulin ([facility]/HCC)- Primary Other male erectile dysfunction Other hyperlipidemia (CMS/HCC) Diabetic polyneuropathy associated with type 2 diabetes mellitus ([facility]/HCC) Type 2 diabetes mellitus with diabetic polyneuropathy, without long-term current use of insulin ([facility]) 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 Type 2 diabetes mellitus with diabetic polyneuropathy, with long-term current use of insulin ([facility]/HCC)- Primary Other male erectile dysfunction Other hyperlipidemia ([facility]) Drug-induced weight gain Polyneuropathy- Primary Unspecified hereditary and idiopathic peripheral neuropathy Paresthesia Disturbance of skin sensation documented in this encounter [facility] Summary Purpose Family History No Family History [...] section and content) DATE CREATED AUTHOR 05/05/2019 [facility] DATE CREATED AUTHOR AUTHOR'S ORGANIZ ATION 11/13/2021 [facility] DATE CREATED AUTHOR AUTHOR'S ORGANIZ ATION 03/18/2023 [facility] DATE CREATED AUTHOR AUTHOR'S ORGANIZ ATION 08/18/2024 [facility] EPIC Care Teams (unrecognized sec tion and content) Powerhouse Electrician Relationship Specialty Start Date End Date Shaikh Hunt MD [address] [place] [id number] PCP - General Internal Medicine 02/19/24 Powerhouse Electrician Relationship Specialty Start Date End Date Shaikh Hunt MD [address] [place] [phone] PCP - General Internal Medicine 02/19/24 Reason for Visit (unrecogniz ed section and content) Reason Comments Peripheral Neuropathy FOR RECORDS PERTAINING TO PATIENTS WHO ARE [...] BE BASED ON THE PRIMARY CLINICAL RECORDS. [email or web address] provides no warranty or guarantee of the accuracy or completeness of information in this document.
[2024-08-23 16:21] LABS: Anion Gap 12.5; BUN Creatinine Ratio 13.8; Calcium 8.9 mg/dL (8.5-10.1); Carbon Dioxide 25.9 mmol/L (21.0-32.0); Chloride 103 mmol/L (98-107); Estimated GFR (African America >60 (>=60 mL/min/1.73m^2); Estimated GFR (Non-African Ame >60 (>=60 mL/min/1.73m^2); Glucose 272 mg/dL (74-106); Potassium 4.4 mmol/L (3.5-5.1); Sodium 137 mmol/L (136-145)
[2024-08-25 04:08] LABS: FSH 4.2 mIU/mL (1.5-12.4); Luteinizing Hormone(LH) 5.3 mIU/mL (1.7-8.6); Prolactin 10.9 ng/mL (3.6-25.2); Sex Horm Binding Glob, Serum 62.4 nmol/L (19.3-76.4); Testosterone 433 ng/dL (264-916)
== END 2024-08-23 15:18 | disposition home or self-care (01) ==
LOC: LAB 15:21
PROVIDERS: PCP Internal Medicine; Visit Provider Internal Medicine
DX: E23.0 Hypopituitarism (principal)
CPT/HCPCS: 36415; 80048; 82728; 83001; 83002; 84146; 84270; 84403

== ENCOUNTER 2024-11-26 12:16 | Outpatient (OUT) | payer MEDICARE, SELFPAY ==
--- OUTSIDE RECORDS SUMMARY | 2024-11-26 12:37 | XMS_ITS | CCD ---
Author Organization [facility] CliniSymn Care Team Providers Care Bank Accountant Name Role Phone WEST, DR POORNIMA Murry Consulting Unavailable LANG, LAYNE Admitting Unavailable LANG, LAYNE Attending Unavailable REQUEST, NONE LISTED Primary Care Unavaila LAYNE Delgado Consulting Unavailable FAWWAD, BOWEN H Attending Unavailable FAWWAD, BOWEN H Admitting Unavailable FAWWAD, BOWEN H Primary Care Unavailable FAWWAD, BOWEN H Consulting Unavailable FAWWAD, BOWEN H Attending Unavailable FAWWAD, BOWEN H Admitting Unavailable FAWWAD, BOWEN H Primary Care Unavailable FAWWAD, BOWEN H Consulting Unavailable LANG, LAYNE Admitting Unavailable LANG, LAYNE Consulting Unavailable LANG, LAYNE Attending Unavailable REQUEST, NONE LISTED Primary Care Unavaila serena Hunt MD, Primary Care Provider Marty Avendaño MD Primary Care Provider [phone] Kaylyn Kelly NP Unavailable SHAIKH HUNT Attending Unavailable SHAIKH HUNT Attending Unavailable ALISSA MURO Attending Unavailable FASHAIKH MOSLEY Attending Unavailable SANTANAALLA Attending Unavailable SHAIKH HUNT Attending Unavailable SANTANAALLA RITTER Attending Unavailable ALLA SANTANA Attending Unavailable MARILEE, BOWEN Referring Unavailable EARNEST FIGUEROA Attending Unavailable EARNEST FIGUEROA Referring Unavailable KAYLYN KELLY Attending UnavailJoe Saldaña MD Attending Provider Leticia JEFFERSON-CKaylyn Primary Care Provid er Kaylyn Kelly Primary Care Unavaila ble Joe Dowell Attending Unavailable Joe Dowell Admitting Unavailable Allergies Allergy Classification Reported Allergen(s) Allergy Type Date of Onset Reaction(s) Facility (13 sources) empagliflozin / Linagliptin Drug Allergy 8 Unknown [facility] Healthcare (13 sources) Amoxicillin-Pot Clavulanate Drug Allergy 3 Diarrhea [facility] Healthcare (13 sources) Metformin And Related Drug Intolerance 8 Unknown [facility] Medications Current Medications Medication Drug Class(es) Dates Sig (Normalized) Sig (Original) atorvastatin 20 mg oral tablet (13 sources) HMG-CoA Reductase Inhibitor Start: End: take 1 tablet by mouth once daily atorvastatin (Lipitor) 20 MG tablet Indications: Other hyperlipidemia (CMS/HCC) Take 1 tablet (20 mg) by mouth Daily 90 tablet 1 06/01/2024 11/28/2024 Active Carboxymethylcellulose (13 sources) Carboxymethylcel lulose Sodium (EYE DROPS OP) Administer into affected eye(s) Active Continuous Blood Gluc Evening Or Night Nurse Supervisor (FreeStyle Nakia 2 [place]) device (13 sources) Continuous Blood Gluc Evening Or Night Nurse Supervisor (FreeStyle Nakia 2 [place]) device Active Continuous Glucose Sensor (FreeStyle Nakia 2 Sensor) misc (2 sources) Start: Continuous Glucose Sensor (FreeStyle Nakia 2 Sensor) misc Indications: Type 2 diabetes mellitus with diabetic polyneuropathy, without long-term current use of insulin (CMS/HCC) 1 each continuously 1 each 3 09/01/2024 Active dorzolamide 20 mg/ml / timolol 5 mg/ml ophthalmic solution (13 sources) Carbonic Anhydrase Inhibitor, beta-Adrenergic Lev take 1 drop(s) into the eye(s) in the morning dorzolamide-timolol (Cosopt) 2-0.5 % ophthalmic solution Administer 1 drop into both eyes in the morning and 1 drop before bedtime. Active 0.5 ml dulaglutide 3 mg/ml auto-injector (13 sources) GLP-1 Receptor Agonist Start: inject 1.5 mg by subcutaneous injection every week dulaglutide (Trulicity) 1.5 MG/0.5ML solution pen-injector Indications: Type 2 diabetes mellitus with diabetic polyneuropathy, with long-term current use of insulin (CMS/HCC) Inject 1.5 mg under the skin 1 (one) time per week 12 pen 1 06/01/2024 Active DULoxetine 40 mg delayed release oral capsule (3 sources) Serotonin and Norepinephrine Reuptake Inhibitor Start: End: take 1 capsule by mouth once daily DULoxetine (Cymbalta) [address] capsule Indications: Polyneuropathy Take 1 capsule (40 mg) by mouth Daily Do not crush or chew. 30 capsule 3 06/15/2024 08/16/2024 Discontinued (Side effects) glipiZIDE 10 mg oral tablet (15 sources) Sulfonylurea Start: take 0.5 tablet by mouth in the morning glipiZIDE (Glucotrol) 10 MG tablet Indications: Type 2 diabetes mellitus with diabetic polyneuropathy, without long-term current use of insulin (CMS/HCC) Take 0.5 tablets (5 mg) by mouth in the morning and 0.5 tablets (5 mg) in the evening. Take before meals. 60 tablet 2 09/01/2024 Active Start: 10-02-2023 End: 09-01-2024 take 1 tablet by mouth once daily in the morning glipiZIDE (Glucotrol) 10 MG tablet Indications: Type 2 diabetes mellitus with diabetic polyneuropathy, without long-term current use of insulin (CMS/HCC) TAKE 1 TABLET BY MOUTH EVERY MORNING & 1 TABLET IN THE EVENING BEFORE MEALS 60 tablet 2 08/26/2024 09/01/2024 Discontinued 3 ml insulin detemir 100 unt/ml pen injector (3 sources) Insulin Analog Start: 08-26-2024 End: 08-31-2024 insulin detemir (Levemir FlexPen) 100 UNIT/ML pen Indications: Type 2 diabetes mellitus with diabetic polyneuropathy, without long-term current use of insulin (CMS/HCC) INJECT 25 UNITS UNDER THE SKIN IN THE MORNING. 15 mL 1 08/26/2024 08/31/2024 Discontinued (Availability) Start: 08-26-2024 insulin detemi r (Levemir FlexPen) 100 UNIT/ML pen Indications: Type 2 diabetes mellitus with diabetic polyneuropathy, without long-term current use of insulin (CMS/HCC) INJECT 25 UNITS UNDER THE SKIN IN THE MORNING. 15 mL 1 08/26/2024 Active 3 ml insulin glargine 100 unt/ml pen injector (14 sources) Insulin Analog Start: 04-26-2024 End: 02-27-2025 insulin glargine (Lantus SoloStar) 100 UNIT/ML pen Indications: Type 2 diabetes mellitus with diabetic polyneuropathy, with long-term current use of insulin (CMS/HCC) Inject 30 Units under the skin at bedtime 27 mL 1 08/31/2024 02/27/2025 Active pregabalin 200 mg oral capsule (14 sources) Start: 04-05-2024 End: 11-30-2024 pregabalin (Lyrica) 200 MG capsule Indications: Type 2 diabetes mellitus with diabetic polyneuropathy, without long-term current use of insulin (CMS/HCC) , Diabetic polyneuropathy associated with type 2 diabetes mellitus (CMS/HCC) Take 1 capsule (200 mg) by mouth Daily 30 capsule 2 09/01/2024 11/30/2024 Active sildenafil 100 mg oral tablet (12 sources) Phosphodiesterase 5 Inhibitor Start: 04-21-2024 take 1 tablet by mouth once daily as needed sildenafil (Viagra) 100 MG tablet Indications: Other male erectile dysfunction Take 1 tablet (100 mg) by mouth Daily as needed for erectile dysfunction 30 tablet 2 04/21/2024 Active SITagliptin 100 mg oral tablet (14 sources) Dipeptidyl Peptidase 4 Inhibitor Start: 03-22-2024 End: 09-18-2024 take 1 tablet by mouth once daily Januvia 100 MG tablet Indications: Type 2 diabetes mellitus without complications (CMS/HCC) TAKE 1 TABLET BY MOUTH EVERY DAY 90 tablet 1 08/26/2024 Active Completed/Discontinued Medications Medication Drug Class(es) Dates Sig (Normalized) Sig (Original) Continuous Blood Gluc Sensor (FreeStyle Nakia 2 Sensor) misc (13 sources) End: 09-01-2024 Continuous Blood Gluc Sensor (FreeStyle Nakia 2 Sensor) misc 09/01/2024 Discontinued (Reorder) Continuous Blood Gluc Sensor (FreeStyle Nakia 2 Sensor) misc Active Problems Active Problems Problem Classification Problem Date Documented Date Episodic/Chronic Diabetes mellitus with complications (20 sources) Polyneuropathy due to type 2 diabetes mellitus; Translations: [Type 2 diabetes mellitus with diabetic polyneuropathy] Onset: 10-02-2023 04-21-2024 Chronic Diabetes mellitus without complication (2 sources) Type 2 diabetes mellitus without complications; Translations: [Type 2 diabetes mellitus without complication] Onset: 03-13-2023 08-23-2024 Chronic Disorders of lipid metabolism (15 sources) Hyperlipidemia; Translations: [Other hyperlipidemia] Onset: 02-19-2024 02-19-2024 Chronic Other endocrine disorders (13 sources) Hypotestosteronism; Translations: [Testicular hypofunction] Onset: 05-03-2024 05-03-2024 Chronic Other endocrine disorders (2 sources) Male hypogonadism; Translations: [Testicular hypofunction] 08-26-2024 Chronic Other male genital disorders (13 sources) Other male erectile dysfunction; Translations: [Impotence of organic origin] Onset: 02-19-2024 02-19-2024 Chronic Other nervous system disorders (4 sources) Polyneuropathy, unspecified; Translations: [POLYNEUROPATHY UNSPECIFIED] Onset: 03-07-2023 Chronic Other nervous system disorders (20 sources) Polyneuropathy; Translations: [Polyneuropathy, unspecified] Onset: 02-19-2024 02-19-2024 Chronic Other nervous system disorders (4 sources) Paresthesia of skin; Translations: [PARESTHESIA OF SKIN] Onset: 02-03-2023 Episodic Other nervous system disorders (4 sources) Anesthesia of skin; Translations: [ANESTHESIA OF SKIN] Onset: 01-09-2023 Episodic Other nervous system disorders (2 sources) Paresthesia; Translations: [Paresthesia of skin] 08-16-2024 Episodic Peripheral and visceral atherosclerosis (1 source) Atherosclerosis of [place] arteries of extremities with intermittent claudication, bilateral legs; Translations: [Atherosclerosis of [place] arteries of extremities with intermittent claudication, bilateral legs] Onset: 09-15-2024 Chronic Residual codes; unclassified (2 sources) Reduced libido; Translations: [Decreased libido] 08-26-2024 Episodic Past or Other Problems Problem Classification Problem Date Documented Da te Episodic/Chronic Other and unspecified benign neoplasm (13 sources) History of polyp of colon; Translations: [Hx of colonic polyps] Onset: 02-19-2024 02-19-2024 Episodic Other nervous system disorders (13 sources) Paresthesia of lower extremity; Translations: [Paresthesia of skin] Onset: 03-16-2024 03-16-2024 Episodic Other nutritional; endocrine; and metabolic disorders (13 sources) H/O: endocrine disorder; Translations: [Personal history of other endocrine, nutritional and metabolic disease] Onset: 05-03-2024 05-03-2024 Episodic Other nutritional; endocrine; and metabolic disorders (13 sources) Weight increased; Translations: [Abnormal weight gain] Onset: 06-01-2024 06-01-2024 Episodic Other screening for suspected conditions (not mental disorders or infectious disease) (13 sources) Patient encounter status; Translations: [Encounter for screening for lipoid disorders] Onset: 10-02-2023 10-02-2023 Episodic Results Test Name Value Interpretation Reference Range Facility US arterial pvr rest Janie US arterial pvr rest LE [facility] [place] [address] Ultrasound Report Signed Patient: Laura Song JR MR#: [id number] : 1955 Acct:[id number] Age/Sex: 69 / M ADM Date: 09/15/24 Loc: Room: Type: [facility] Attending Dr: Joe Dowell MD Ordering Provider: Joe Dowell MD Date of Service: 09/15/24 US/US arterial pvr rest LE: I70.213 - Atherosclerosis of [place] arteries of extremiti... Copies to: Joe Dowell MD LOWER EXTREMITY SEGMENTAL ARTERIAL DOPSCAN (PVR) INDICATION: Leg pain PROCEDURE: Right arm blood pressure is 126 , left is 114 . Pressures throughout the right leg are 165 at the high thigh, at the 182 low thigh, 139 at the calf, 134 at the ankle using the posterior tibial artery, and 139 at the ankle using the dorsalis pedis artery with ankle- brachial index of 1.06 1.10 . Pressures throughout the left leg are 156 at the high thigh, at the 160 low thigh, 123 at the calf and 132 at the ankle using the posterior tibial artery, and 125 at the ankle using the dorsalis pedis artery with ankle-brachial index of 1.05 0.99 . Wave forms by plethysmography are normal. US/US arterial pvr rest LE IMPRESSION: NO HEMODYNAMICALLY SIGNIFICANT PERIPHERAL VASCULAR OCCLUSIVE DISEASE AT REST IN EITHER LOWER EXTREMITY. Impression dictated by: Joe Dowell M.D.09/16/2024 8:49 AM Dictation Location: [place] [address] Tech: Nancy Yarbrough Transcribed By: TRICIA 09/16/2449 Dictated By: Joe Dowell MD 09/16/24847 Signed By: 09/16/24848 Normal [facility] ALL BASIC METABOLIC PANELon 08-23-2024 Anion gap [Moles/Vol] 12.5 mmol/L [facility] Calcium [Mass/Vol] 8.9 mg/dL 8.5 - 10. 1 mg/dL [facility] Chloride [Moles/Vol] 103 mmol/L 98 - 10 7 mmol/L [facility] CO2 [Moles/Vol] 25.9 mmol/L 21.0 - 32.0 mmol/L [facility] Creatinine [Mass/Vol] 1.09 mg/dL 0.70 - 1.30 mg/dL [facility] GFR/1.73 sq M.predicted CKD-EPI (S/P/Bld) [Vol rate/Area] >60 >=60 mL/min/1.73m 2 [facility] Glucose [Mass/Vol] 272 mg/dL High 74 - 106 mg/dL [facility] Interpretation and review of laboratory results Abnormal [facility] Potassium [Moles/Vol] 4.4 mmol/L 3.5 - 5.1 mmol/L [facility] Sodium [Moles/Vol] 137 mmol/L 136 - 145 mmol/L [facility] TBH EGFR-NON AF [place] >60 >=60 mL/min/1.73m 2 [facility] Urea nitrogen [Mass/Vol] 15 mg/dL 7.0 - 18.0 mg/dL [facility] Urea nitrogen/Creatinine [Mass ratio] 13.8 mg/mg [facility] e CBC AUTO DIFFon 03-07-2023 BASO # 0.0 103/ul Normal 0.0-0.1 [facility] Comment on above: Performed By: #### C BC #### [facility] [address] [address] [address] Stella Mora Basophils/100 WBC (Bld) 0.4 % Normal 0.2-2.0 [facility] Comment on above: Performed By: #### C BC #### [facility] [address] [place] [address] Dr. Stella Mora EO # 0.1 103/ul Normal 0.0-0.7 [facility] Comment on above: Performed By: #### C BC #### [facility] [address] [place] [address] Dr. Stella Mora Eosinophils/100 WBC (Bld) 0.7 % Critically low 0.9-7.0 [facility] Comment on above: Performed By: #### C BC #### [facility] [address] [place] [address] Dr. Stella Mora Erythrocyte distribution width (RBC) [Ratio] 11.9 % Normal 11.0-15.0 [facility] Comment on above: Performed By: #### C BC #### [facility] [address] [place] [address] Dr. Stella Mora Hematocrit (Bld) [Volume fraction] 43.5 % Normal 42.0-54.0 [facility] Comment on above: Performed By: #### C BC #### [facility] [address] [place] [address] Dr. Stella Mora Hemoglobin (Bld) [Mass/Vol] 15.6 g/dL Normal 14.0-18.0 [facility] Comment on above: Performed By: #### C BC #### [facility] [address] [place] [address] Dr. Stella Mora IG # 0.01 10e3/ul Normal 0.00-0.03 [facility] Comment on above: Performed By: #### C BC #### [facility] [address] [place] [address] Dr. Stella Mora IG % 0.1 % Normal 0.0-0.5 [facility] Comment on above: Performed By: #### C BC #### [facility] [address] [place] [address] Dr. Stella Mora LYMPH # 1.7 103/ul Normal 1.2-3.8 [facility] Comment on above: Performed By: #### C BC #### [facility] [address] [place] [address] Dr. Stella Mora Lymphocytes/100 WBC (Bld) 24.5 % Normal 20.5-60.0 [facility] Comment on above: Performed By: #### C BC #### [facility] [address] [place] [address] Dr. Stella Mora MANUAL DIFF REQ NO Normal [facility] Comment on above: Performed By: #### C BC #### [facility] [address] [place] [address] Dr. Stella Mora MCH (RBC) [Entitic mass] 31.8 pg Normal 25.9-34.0 [facility] Comment on above: Performed By: #### C BC #### [facility] [address] [place] [address] Dr. Stella Mora MCHC (RBC) [Mass/Vol] 35.9 g/dL Critically high 29.9-35.2 [facility] Comment on above: Performed By: #### C BC #### [facility] [address] [place] [address] Dr. Stella Mora MCV (RBC) [Entitic vol] 88.6 fL Normal 80.0-94.0 [facility] Comment on above: Performed By: #### C BC #### [facility] [address] [place] [address] Dr. Stella Mora MONO # 0.5 103/ul Normal 0.3-0.8 [facility] Comment on above: Performed By: #### C BC #### [facility] [address] [place] [address] Dr. Stella Mora Monocytes/100 WBC (Bld) 6.9 % Normal 1.7-12.0 [facility] Comment on above: Performed By: #### C BC #### [facility] [address] [place] [address] Dr. Stella Mora NEUT # 4.6 103/ul Normal 1.4-6.5 [facility] Comment on above: Performed By: #### C BC #### [facility] [address] [address] [address] Stella Mora Neutrophils/100 WBC (Bld) 67.4 % Normal 43.0-75.0 [facility] Comment on above: Performed By: #### C BC #### [facility] [address] [address] [address] Stella Mora Platelet mean volume (Bld) [Entitic vol] 10.7 fL Normal 9.5-13.5 [facility] Comment on above: Performed By: #### C BC #### [facility] [address] [address] [address] Stella Mora PLT 242 103/ul Normal 150-450 [facility] Comment on above: Performed By: #### C BC #### [facility] [address] [place] [address] Dr. Stella Mora RBC 4.91 106/ul Normal 4.70-6.10 [facility] Comment on above: Performed By: #### C BC #### [facility] [address] [place] [address] Dr. Stella Mora WBC 6.8 103/ul Normal 4.0-11.0 [facility] Comment on above: Performed By: #### C BC #### [facility] [address] [place] [address] Dr. Stella Mora GLYCOHEMOGLOBIN A1Con 2022 ADA RECOMMENDATION SEE BELOW Normal [facility] Comment on above: Result Comment: ADA RECOMMENDED LIMIT 4.0 - 6.0 ADA THERAPEUTIC TARGET < 7.0 ACTION SUGGESTED > 7.0 Performed By: #### A 1C #### [facility] [address] [place] [address] Dr. Stella Mora Glucose [Mass/Vol] 309 mg/dL Normal [facility] Comment on above: Performed By: #### A 1C #### [facility] [address] [place] [address] Dr. Stella Mora HbA1c (Bld) [Mass fraction] 12.4 % Critically high 4.5-6.2 [facility] Comment on above: Performed By: #### A 1C #### [facility] [address] [place] [address] Dr. Stella Mora PROF 14(COMP METB)on 023 Albumin [Mass/Vol] 4.0 g/dL Normal 3.4-5.0 [facility] Comment on above: Performed By: #### C MP #### [facility] [address] [place] [address] Dr. Stella Mora Albumin/Globulin [Mass ratio] 0.9 {ratio} Normal [facility] Comment on above: Performed By: #### C MP #### [facility] [address] [place] [address] Dr. Stella Mora ALP [Catalytic activity/Vol] 103 U/L Normal 46-116 [facility] Comment on above: Performed By: #### C MP #### [facility] [address] [place] [address] Dr. Stella Mora ALT [Catalytic activity/Vol] 45 U/L Normal 16-63 [facility] Comment on above: Performed By: #### C MP #### [facility] [address] [place] [address] Dr. Stella Mora Anion gap [Moles/Vol] 9.5 mmol/L Normal [facility] Comment on above: Performed By: #### C MP #### [facility] [address] [place] [address] Dr. Stella Mora AST [Catalytic activity/Vol] 18 U/L Normal 15-37 [facility] Comment on above: Performed By: #### C MP #### [facility] [address] [place] [address] Dr. Stella Mora Bilirubin [Mass/Vol] 1.9 mg/dL Critically high 0.2-1.0 [facility] Comment on above: Performed By: #### C MP #### [facility] [address] [place] [address] Dr. Stella Mora Calcium [Mass/Vol] 9.1 mg/dL Normal 8.5-10.1 [facility] Comment on above: Performed By: #### C MP #### [facility] [address] [address] [address] Stella Mora Chloride [Moles/Vol] 98 mmol/L Normal 98-107 [facility] Comment on above: Performed By: #### C MP #### [facility] [address] [address] [address] Stella Mora CO2 [Moles/Vol] 28.4 mmol/L Normal 21.0-32.0 [facility] Comment on above: Performed By: #### C MP #### [facility] [address] [address] [address] Stella Mora Creatinine [Mass/Vol] 0.87 mg/dL Normal 0.70-1.30 [facility] Comment on above: Performed By: #### C MP #### [facility] [address] [place] [address] Dr. Stella Mora EGFR-AF [place] >60 Normal >=60 [facility] Comment on above: Performed By: #### C MP #### [facility] [address] [address] [address] Stella Mora EGFR-NON AF [place] >60 Normal >=60 [facility] Comment on above: Performed By: #### C MP #### [facility] [address] [place] [address] Dr. Stella Mora Globulin (S) [Mass/Vol] 4.3 g/dL Normal [facility] Comment on above: Performed By: #### C MP #### [facility] [address] [address] [address] Stella Mora Glucose [Mass/Vol] 258 mg/dL Critically high 74-106 [facility] Comment on above: Performed By: #### C MP #### [facility] [address] [address] [address] Stella Mora Potassium [Moles/Vol] 3.9 mmol/L Normal 3.5-5.1 [facility] Comment on above: Performed By: #### C MP #### [facility] [address] [address] [address] Stella Mora Protein [Mass/Vol] 8.3 g/dL Critically high 6.4-8.2 T [facility] Comment on above: Performed By: #### C MP #### [facility] [address] [place] [address] Dr. Stella Mora Sodium [Moles/Vol] 132 mmol/L Critically low 136-145 [facility] Comment on above: Performed By: #### C MP #### [facility] [address] [address] [address] Stella Mora Urea nitrogen [Mass/Vol] 15.0 mg/dL Normal 7.0-18.0 [facility] Comment on above: Performed By: #### C MP #### [facility] [address] [place] [address] Dr. Stella Mora Urea nitrogen/Creatinine [Mass ratio] 17.2 mg/mg Normal [facility] Comment on above: Performed By: #### C MP #### [facility] [address] [place] [address] Dr. Stella Mora VIT B12 AND FOLATEon 023 Cobalamin (Vitamin B12) [Mass/Vol] 688.0 pg/mL Normal 193.0-986.0 [facility] Comment on above: Performed By: #### B 12FOL #### [facility] [address] [place] [address] Dr. Stella Mora FOLATE 20.10 ng/mL Normal 8.60-58.90 [facility] Comment on above: Performed By: #### B 12FOL #### [facility] [address] [place] [address] Dr. Stella Mora XR FOOT URBANO MIN [...] by: POORNIMA RUSSELL Date: 2023-01-09 15:26 Normal [facility] Patient Letter FTMCon 2021 Patient Letter FT November 12, 2021 LAURA SONG JR [address] [place] [phone] LAURA SONG JR 1955 Dear Laura, This is a SECOND ATTEMPT to remind you that you are due for an appointment with [facility]. Please contact our office at [phone] to schedule an appointment at your earliest convenience. Thank you, [facility] Reminderson 11-12-2021 Reminders - From: Saritha Garcia To: MEAGHAN - Reminders/Recalls; Sent: 05/30/2021 10:58:45 EDT Show up: 09/03/2021 10:58:00 EDT Subject: Ambulatory Reminder Due Date/Time: 10/13/2021 10:58:00 EST Reminder/Recall 5 year colon recall salam 10/13/2021 first recall letter second recall letter Normal [facility] Patient Letter FTMCon 2020 Patient Letter FT September 03, 2021 LAURA SONG JR [address] [place] [phone] LAURA SONG JR 1955 Dear Laura, This is a reminder that you are due for an appointment with [facility]. Please contact our office at [phone] to schedule an appointment at your earliest convenience. Thank you, [facility] Normal [facility] Testosterone Free And Total, Adult Maleon 05-04-2019 Sex Hormone Binding Globulin 37 nmol/L Normal [facility] Comment on above: Result Comment: REFE RENCE INTERVAL: Sex Hormone Binding Globulin Access complete set of age- and/or gender-specific reference intervals for this test in the [facility] ([email or web address]). Testosterone, Adult Male 194 ng/dL Low 300-720 [facility] Comment on above: Result Comment: REFE RENCE INTERVAL: Testosterone, Adult Male Access complete set of age- and/or gender-specific reference intervals for this test in the [facility] Test [facility] ([email or web address]). Testosterone, Free Calculation 32 pg/mL Low 47-244 [facility] Comment on above: Result Comment: INTE [...] reference intervals for this test in the [facility] Test [facility] ([email or web address]). Testosterone, Percentage Free 1.6 % Normal 1.6-2.9 [facility] Comment on above: Result Comment: Perf ormed by [employer] [address] [facility], [place] [address] [email or web address], Eleazar Baker MD - Lab. Director Basic Metabolic Panelon 07-0 Anion gap [Moles/Vol] 13 mmol/L Normal 9-15 [facility] Comment on above: Performed By: #### B MP ####[facility] [facility] [phone] Calcium [Mass/Vol] 8.8 mg/dL Normal 8.5-9.9 [facility] Comment on above: Performed By: #### B MP ####[facility] [facility] [phone] Chloride [Moles/Vol] 102 mmol/L Normal 95-107 [facility] Comment on above: Performed By: #### B MP ####[facility] [facility] [place] [phone] CO2 [Moles/Vol] 24 mmol/L Normal 20-31 [facility] Comment on above: Performed By: #### B MP ####[facility] [facility] [phone] Creatinine [Mass/Vol] 0.88 mg/dL Normal 0.70-1.20 [facility] Comment on above: Performed By: #### B MP ####[facility] [facility] [phone] GFR/1.73 sq M predicted among blacks MDRD (S/P/Bld) [Vol rate/Area] mL/min/{1.73_m2} Normal >60 [facility] Comment on above: Result Comment: >60 mL/min/1.73m2 EGFR, calc. for ages 18 and older using the MDRD formula (not corrected for weight), is valid for stable renal function. Performed By: #### B MP ####[facility] [facility] [phone] GFR/1.73 sq M.predicted MDRD (S/P/Bld) [Vol rate/Area] mL/min/{1.73_m2} Normal >60 [facility] Comment on above: Result Comment: >60 mL/min/1.73m2 EGFR, calc. for ages 18 and older using the MDRD formula (not corrected for weight), is valid for stable renal function. Performed By: #### B MP ####[facility] [facility] [phone] Glucose [Mass/Vol] 161 mg/dL Critically high 70-99 [facility] Comment on above: Performed By: #### B MP ####[facility] [facility] [phone] Potassium [Moles/Vol] 4.0 mmol/L Normal 3.4-4.9 [facility] Comment on above: Performed By: #### B MP ####[facility] [facility] [phone] Sodium [Moles/Vol] 139 mmol/L Normal 135-144 [facility] Comment on above: Performed By: #### B MP ####[facility] [facility] [phone] Urea nitrogen [Mass/Vol] 21 mg/dL Normal 8-23 [facility] Comment on above: Performed By: #### B MP ####[facility] [facility] [phone] Hemoglobin A1con 05-03-2019 HbA1c (Bld) [Mass fraction] 7.0 % Critically high 4.8-5.9 [facility] Comment on above: Performed By: #### A 1C ####[facility] [facility] [phone] PSA Diagnosticon 05-03-2019 PSA Diagnostic 0.68 ng/mL Normal 0.00-5.40 [facility] Comment on above: Performed By: #### P SADG ####[facility] [facility] [phone] UR Microalbumin/Creatinine R atio Randomon 05-03-2019 Microalbumin/creatin ine Ratio 124.0 mg/G Critically high 0.0-30.0 [facility] Comment on above: Performed By: #### U MACR ####[facility] [facility] [phone] UR Creatinine Random 37.1 mg/dL Normal Not Establ [facility] Comment on above: Performed By: #### U MACR ####[facility] [facility] [phone] UR Microalbumin Random 4.60 mg/dL Critically high [facility] Comment on above: Performed By: #### U MACR ####[facility] [facility] [phone] Testosterone Free And Total, Adult Maleon 02-16-2019 Sex Hormone Binding Globulin 39 nmol/L Normal 11-80 [facility] Comment on above: Result Comment: REFE RENCE INTERVAL: Sex Hormone Binding Globulin Access complete set of age- and/or gender-specific reference intervals for this test in the [facility] Test [facility] ([email or web address]). Testosterone, Adult Male 165 ng/dL Low 300-720 [facility] Comment on above: Result Comment: REFE RENCE INTERVAL: Testosterone, Adult Male Access complete set of age- and/or gender-specific reference intervals for this test in the [facility] Test [facility] ([email or web address]). Testosterone, Free Calculation 26 pg/mL Low 47-244 [facility] Comment on above: Result Comment: INTE [...] reference intervals for this test in the [facility] Test [facility] ([email or web address]). Testosterone, Percentage Free 1.6 % Normal 1.6-2.9 [facility] Comment on above: Result Comment: Perf ormed by [employer] [address] [place] [address] [email or web address], Eleazar Baker MD - Lab. Director UR Microalbumin/Creatinine R atio Randomon 02-16-2019 Microalbumin/creatin ine Ratio 126.0 mg/G Critically high 0.0-30.0 [facility] Comment on above: Performed By: #### U MACR ####[facility] [facility] [phone] UR Creatinine Random 48.4 mg/dL Normal Not Establ [facility] Comment on above: Performed By: #### U MACR ####[facility] [facility] [phone] UR Microalbumin Random 6.10 mg/dL Critically high Not [facility] Comment on above: Performed By: #### U MACR ####[facility] [facility] [phone] Basic Metabolic Panelon 02-01 Anion gap [Moles/Vol] 12 mmol/L Normal 9-15 [facility] Comment on above: Result Comment: Effe ctive: 12/10/2018 New reference range for this analyte has been established. Performed By: #### B MP #### [facility] [address] [place] [address] Calcium [Mass/Vol] 9.0 mg/dL Normal 8.5-9.9 [facility] Comment on above: Result Comment: Effe ctive: 12/10/2018 New reference range for this analyte has been established. Performed By: #### B MP #### [facility] [address] [place] [address] Chloride [Moles/Vol] 100 mmol/L Normal 95-107 [facility] Comment on above: Result Comment: Effe ctive: 12/10/2018 New reference range for this analyte has been established. Performed By: #### B MP #### [facility] [address] [place] [address] CO2 [Moles/Vol] 27 mmol/L Normal 20-31 [facility] Comment on above: Result Comment: Effe ctive: 12/10/2018 New reference range for this analyte has been established. Performed By: #### B MP #### [facility] [address] [place] [address] Creatinine [Mass/Vol] 0.82 mg/dL Normal 0.70-1.20 [facility] Comment on above: Performed By: #### B MP #### [facility] [address] [place] [address] GFR/1.73 sq M predicted among blacks MDRD (S/P/Bld) [Vol rate/Area] mL/min/{1.73_m2} Normal >60 [facility] Comment on above: Result Comment: >60 mL/min/1.73m2 EGFR, calc. for ages 18 and older using the MDRD formula (not corrected for weight), is valid for stable renal function. Performed By: #### B MP #### [facility] [address] [place] [address] GFR/1.73 sq M.predicted MDRD (S/P/Bld) [Vol rate/Area] mL/min/{1.73_m2} Normal >60 [facility] Comment on above: Result Comment: >60 mL/min/1.73m2 EGFR, calc. for ages 18 and older using the MDRD formula (not corrected for weight), is valid for stable renal function. Performed By: #### B MP #### [facility] [address] [place] [address] Glucose [Mass/Vol] 95 mg/dL Normal 70-99 [facility] Comment on above: Result Comment: Effe ctive: 12/10/2018 New reference range for this analyte has been established. Performed By: #### B MP #### [facility] [address] [place] [address] Potassium [Moles/Vol] 4.0 mmol/L Normal 3.4-4.9 [facility] Comment on above: Result Comment: Effe ctive: 12/10/2018 New reference range for this analyte has been established. Performed By: #### B MP #### [facility] [address] [place] [address] Sodium [Moles/Vol] 139 mmol/L Normal 135-144 [facility] Comment on above: Result Comment: Effe ctive: 12/10/2018 New reference range for this analyte has been established. Performed By: #### B MP #### [facility] [address] [place] [address] Urea nitrogen [Mass/Vol] 14 mg/dL Normal 8-23 [facility] Comment on above: Performed By: #### B MP #### [facility] [address] [place] [address] Hemoglobin A1con 02-15-2019 HbA1c (Bld) [Mass fraction] 6.9 % Critically high 4.8-5.9 [facility] Comment on above: Performed By: #### A 1C #### [facility] [address] [place] [address] PSA Diagnosticon 02-15-2019 PSA Diagnostic 0.70 ng/mL Normal 0.00-5.40 [facility] Comment on above: Performed By: #### P NELLIEG #### [facility] [address] [place] [address] Testosterone Free And Total, Adult Maleon 11-19-2018 Sex Hormone Binding Globulin 38 nmol/L Normal 11-80 [facility] Comment on above: Result Comment: REFE RENCE INTERVAL: Sex Hormone Binding Globulin Access complete set of age- and/or gender-specific reference intervals for this test in the [facility] Test Directory ([email or web address]). Testosterone, Adult Male 560 ng/dL Normal 300-720 [facility] Comment on above: Result Comment: REFE RENCE INTERVAL: Testosterone, Adult Male Access complete set of age- and/or gender-specific reference intervals for this test in the [facility] ([email or web address]). Testosterone, Free Calculation 100 pg/mL Normal 47-244 [facility] Comment on above: Result Comment: INTE [...] reference intervals for this test in the [facility] ([email or web address]). Testosterone, Percentage Free 1.8 % Normal 1.6-2.9 [facility] Comment on above: Result Comment: Perf ormed by [employer] [address] [place] [address] [email or web address], Eleazar Baker MD - Lab. Director Basic Metabolic Panelon 11-03 Anion gap [Moles/Vol] 11 mmol/L Normal 7-13 [facility] Calcium [Mass/Vol] 8.8 mg/dL Normal 8.6-10.2 [facility] Chloride [Moles/Vol] 101 mmol/L Normal 98-107 [facility] CO2 [Moles/Vol] 26 mmol/L Normal 22-29 [facility] Creatinine [Mass/Vol] 1.13 mg/dL Normal 0.70-1.20 [facility] GFR/1.73 sq M predicted among blacks MDRD (S/P/Bld) [Vol rate/Area] mL/min/{1.73_m2} Normal >60 [facility] Comment on above: Result Comment: >60 mL/min/1.73m2 EGFR, calc. for ages 18 and older using the MDRD formula (not corrected for weight), is valid for stable renal function. GFR/1.73 sq M.predicted MDRD (S/P/Bld) [Vol rate/Area] mL/min/{1.73_m2} Normal >60 [facility] Comment on above: Result Comment: >60 mL/min/1.73m2 EGFR, calc. for ages 18 and older using the MDRD formula (not corrected for weight), is valid for stable renal function. Glucose [Mass/Vol] 142 mg/dL Critically high 74-109 [facility] Potassium [Moles/Vol] 4.1 mmol/L Normal 3.5-5.1 [facility] Sodium [Moles/Vol] 138 mmol/L Normal 132-144 [facility] Urea nitrogen [Mass/Vol] 14 mg/dL Normal 8-23 [facility] CBC With Platelet No Differe ntialon 11-17-2018 Erythrocyte distribution width (RBC) [Ratio] 12.6 % Normal 11.5-14.5 [facility] Hematocrit (Bld) [Volume fraction] 47.7 % Normal 42.0-52.0 [facility] Hemoglobin (Bld) [Mass/Vol] 17.0 g/dL Normal 14.0-18.0 [facility] MCH (RBC) [Entitic mass] 32.8 pg Critically high 27.0-31.3 [facility] MCHC (RBC) [Mass/Vol] 35.7 % Normal 33.0-37.0 [facility] MCV (RBC) [Entitic vol] 91.9 fL Normal 80.0-100.0 [facility] Platelets (Bld) [#/Vol] 178 10*3/uL Normal 130-400 [facility] RBC (Bld) [#/Vol] 5.19 10*6/uL Normal 4.70-6.10 [facility] WBC (Bld) [#/Vol] 6.4 10*3/uL Normal 4.8-10.8 [facility] Hemoglobin A1con 11-17-2018 HbA1c (Bld) [Mass fraction] 7.5 % Critically high 4.8-5.9 [facility] Testosterone Free And Total, Adult Maleon 08-19-2018 Sex Hormone Binding Globulin 45 nmol/L Normal 11-80 [facility] Comment on above: Result Comment: REFE RENCE INTERVAL: Sex Hormone Binding Globulin Access complete set of age- and/or gender-specific reference intervals for this test in the [facility] Test [facility] ([employer]). Testosterone, Adult Male >1500 Critically high 300-720 [facility] Comment on above: Result Comment: REFE RENCE INTERVAL: Testosterone, Adult Male Access complete set of age- and/or gender-specific reference intervals for this test in the [facility] ([employer]). Testosterone, Free Calculation See Note Normal 47-244 [facility] Comment on above: Result Comment: The [...] reference intervals for this test in the [facility] ([email or web address]). Testosterone, Percentage Free See Note Normal 1.6-2.9 [facility] Comment on above: Result Comment: The percent Free Testosterone result is greater than 2.0 percent. Performed by [employer] [address] [place] [address] [email or web address], Eleazar Baker MD - Lab. Director Basic Metabolic Panelon 08-03 Anion gap [Moles/Vol] 16 mmol/L Critically high 7-13 [facility] Calcium [Mass/Vol] 8.9 mg/dL Normal 8.6-10.2 [facility] Chloride [Moles/Vol] 100 mmol/L Normal 98-107 [facility] CO2 [Moles/Vol] 24 mmol/L Normal 22-29 [facility] Creatinine [Mass/Vol] 0.89 mg/dL Normal 0.70-1.20 [facility] GFR/1.73 sq M predicted among blacks MDRD (S/P/Bld) [Vol rate/Area] mL/min/{1.73_m2} Normal >60 [facility] Comment on above: Result Comment: >60 mL/min/1.73m2 EGFR, calc. for ages 18 and older using the MDRD formula (not corrected for weight), is valid for stable renal function. GFR/1.73 sq M.predicted MDRD (S/P/Bld) [Vol rate/Area] mL/min/{1.73_m2} Normal >60 [facility] Comment on above: Result Comment: >60 mL/min/1.73m2 EGFR, calc. for ages 18 and older using the MDRD formula (not corrected for weight), is valid for stable renal function. Glucose [Mass/Vol] 82 mg/dL Normal 74-109 [facility] Potassium [Moles/Vol] 4.0 mmol/L Normal 3.5-5.1 [facility] Sodium [Moles/Vol] 140 mmol/L Normal 132-144 [facility] Urea nitrogen [Mass/Vol] 10 mg/dL Normal 8-23 [facility] Hemoglobin A1con 08-17-2018 HbA1c (Bld) [Mass fraction] 6.9 % Critically high 4.8-5.9 [facility] Vital Signs Date Time Vital Sign Value Performing Clinician Hollis stovall 09-01-2024 14:03-0400 Body height 177.8 cm Kaylyn Kelly [employer] Work Phone: [facility] 09-01-2024 14:03-0400 Body mass index (BMI) [Ratio] 28.93 kg/m2 Kaylyn Kelly [employer] Work Phone: [facility] 09-01-2024 14:03-0400 Body temperature 96.3 [degF] Kaylyn Kelly [employer]PER[employer] Work Phone: [facility] 09-01-2024 14:03-0400 Body weight 91.44 kg Kaylyn Whitepatrick [employer]PER[employer]OR Work Phone: [facility] 09-01-2024 14:03-0400 Diastolic blood pressure 74 mm[Hg] Kaylyn Hallzpatrick [employer]PER[employer] Work Phone: [facility] 09-01-2024 14:03-0400 Heart rate 80 /min Kaylyn Kelly [employer] Work Phone: [facility] 09-01-2024 14:03-0400 Respiratory rate 16 /min Kaylyn Whitepatrick [employer]PER[employer] Work Phone: [facility] 09-01-2024 14:03-0400 Systolic blood pressure 130 mm[Hg] Kaylyn Hallzpatrick [employer]PER[employer] Work Phone: [facility] 08-26-2024 11:27-0400 Body height 177.8 cm Earnest Figueroa MD Work Phone: [facility] 08-26-2024 11:27-0400 Body mass index (BMI) [Ratio] 28.27 kg/m2 Earnest Figueroa MD Work Phone: [facility] 08-26-2024 11:27-0400 Body weight 89.36 kg Earnest Figueroa MD Work Phone: [facility] 08-26-2024 11:27-0400 Heart rate 73 /min Earnest Figueroa MD Work Phone: [facility] Comment on above: O2 SAT 99 08-26-2024 11:27-0400 Respiratory rate 16 /min Earnest Figueroa MD Work Phone: [facility] 08-16-2024 12:53-0400 Body height 177.8 cm Alla Santana [employer]PER[employer]OR Work Phone: [facility] 08-16-2024 12:53-0400 Body mass index (BMI) [Ratio] 28.81 kg/m2 Alla Santana [employer]PER[employer] Work Phone: [facility] 08-16-2024 12:53-0400 Body weight 91.08 kg Alla Santana [employer] Work Phone: [facility] 08-16-2024 12:53-0400 Diastolic blood pressure 86 mm[Hg] Alla Santana [employer]PER[employer]OR Work Phone: [facility] 08-16-2024 12:53-0400 Heart rate 82 /min Alla Santana [employer]PER[employer] Work Phone: [facility] 08-16-2024 12:53-0400 SaO2% (BldA) [Mass fraction] 97 % Alla Santana [employer]PER[employer] Work Phone: [facility] 08-16-2024 12:53-0400 Systolic blood pressure 142 mm[Hg] Alla Santana [employer]PER[employer]OR Work Phone: [facility] Healthcare Encounters Encounter Date Encounter Type Care Provider Facility Start: 09-15-2024 End: 09-15-2024 Patient encounter procedure Kaylyn Kelly [employer]-C Work Phone: [facility] Work Phone: Start: 09-15-2024 End: 09-15-2024 ambulatory Kaylyn Kelly [employer]-C Work Phone: [facility] Work Phone: Start: 09-01-2024 End: 09-01-2024 Bamboo flowsheet Kaylyn Cheemak [employer]PERVISOR Work Phone: [facility] Start: 09-01-2024 End: 09-01-2024 Bamboo flowsheet Kaylyn Longtrick [employer]PER[employer] Work Phone: [facility] Start: 09-01-2024 End: 09-01-2024 Office outpatient visit 15 minutes Kaylyn Cheemak [employer]OR Work Phone: [facility] Comment on above: Type 2 diabetes edmar itus with diabetic polyneuropathy, with long-term current use of insulin ([facility]) (Primary Dx); Type 2 diabetes mellitus with diabetic polyneuropathy, without long-term current use of insulin ([facility]); Diabetic polyneuropathy associated with type 2 diabetes mellitus ([facility]); Other hyperlipidemia ([facility]) Start: 09-01-2024 End: 09-01-2024 ambulatory KAYLYN KELLY Not Available Start: 08-31-2024 End: 08-31-2024 Orders Only Kaylyn Kelly [employer] Work Phone: [facility] Comment on above: Type 2 diabetes edmar itus with diabetic polyneuropathy, with long-term current use of insulin ([facility]) Start: 08-26-2024 End: 08-26-2024 Bamboo flowsheet Earnest Figueroa MD Work Phone: [facility] Start: 08-26-2024 End: 08-26-2024 Bamboo flowsheet Earnest Figueroa MD Work Phone: [facility] Start: 08-26-2024 End: 08-26-2024 ambulatory EARNEST FIGUEROA Not Available Start: 08-26-2024 End: 08-26-2024 Office outpatient visit 15 minutes Earnest Figueroa MD Work Phone: [facility] Comment on above: 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); Low libido Start: 08-24-2024 End: 08-26-2024 Refill Kaylyn Kelly [employer]PER[employer]OR Work Phone: [facility] Comment on above: Type 2 diabetes edmar itus with diabetic polyneuropathy, without long-term current use of insulin ([facility]) Start: 08-23-2024 End: 08-23-2024 Clinisync Result Encounter Generic External Data Provider [facility] External Department Unsolicited Start: 08-23-2024 End: 08-23-2024 Clinisync Result Encounter Generic External Data Provider [facility] External Department Unsolicited Start: 08-23-2024 End: 08-26-2024 Refill Kalyyn Kelly [employer]PER[employer]OR Work Phone: [facility] Comment on above: Type 2 diabetes edmar itus without complications ([facility]); Type 2 diabetes mellitus with diabetic polyneuropathy, without long-term current use of insulin ([facility]) Start: 08-16-2024 End: 08-16-2024 Bamboo flowsheet Alla Santana [employer] SUPERVISOR Work Phone: [facility] Start: 08-16-2024 End: 08-16-2024 Bamboo flowsheet Alla Santana [employer] SUPERVISOR Work Phone: [facility] Start: 08-16-2024 End: 08-16-2024 Office outpatient visit 15 minutes Alla Santana [employer] SUPERVISOR Work Phone: [facility] Comment on above: Polyneuropathy (Prim grant Dx); Paresthesia Start: 08-16-2024 End: 08-16-2024 ambulatory ALLA SANTANA Not Available Start: 06-15-2024 End: 06-15-2024 ambulatory ALLA SANTANA Not Available Start: 06-01-2024 End: 06-01-2024 ambulatory BOWEN FAWWAD Not Available Start: 04-28-2024 End: 04-28-2024 ambulatory ALLA SANTANA Not Available Start: 04-21-2024 End: 04-21-2024 ambulatory BOWEN FAWWAD Not Available Start: 04-01-2024 End: 04-01-2024 ambulatory ALISSA MURO Not Available Start: 02-19-2024 End: 02-19-2024 ambulatory BOWEN FAWWAD Not Available Start: 10-02-2023 End: 10-02-2023 ambulatory BOWEN FAWWAD Not Available Start: 10-02-2023 Patient encounter procedure Alla Santana MILLROOM SUPERVISOR Work Phone: [facility] Start: 03-17-2023 End: 03-18-2023 ambulatory BOWEN H FAWWAD Facility:[facility] Start: 03-07-2023 End: 03-08-2023 ambulatory BOWEN H FAWWAD Facility:[facility] Start: 02-03-2023 End: 02-04-2023 ambulatory LAYNE CROFT Facility:[facility] Start: 01-09-2023 End: 01-10-[address] POORNIMA RUSSELL Facility:[facility] Procedures Date Procedure Procedure Detail Performing Clinician Start: 08-23-2024 ALL BASIC METABOLIC PANEL Generic External Data Provider Start: 10-13-2016 Colonoscopy Alla ritter MILLROOM SUPERVISOR Work Phone: Plan of Treatment Date Care Activity Detail Author Start: 10-13-2026 Screening for malignant neoplasm of colon [facility] Start: 05-02-2025 Influenza vaccination Influenza Vaccine (#1) [facility] Comment on above: Postponed from 07/04/2024 (Patient Refus ed) Start: 01-01-2025 Glaucoma screening Diabetes: Retinopathy Screening [facility] Start: 12-02-2024 End: 12-02-2024 Patient encounter procedure 12/02/2024 2:30 PM EST Office Visit [facility] [address] [place] [address] Kaylyn Kelly NP [address] [place] [address] [facility] Start: 11-29-2024 End: 11-29-2024 Patient encounter procedure 11/29/2024 1:20 PM EST Office Visit [facility] [address] [place] [phone] Alla Santana NP [address] [place] [phone] [facility] [address] Start: 11-06-2024 Hemoglobin A1c measurement Diabetes: Hemoglobin A1C [facility] Start: 10-02-2024 Pneumococcal Vaccine: 65+ Years (1 of 2 - PCV) Pneumococcal Vaccine: 65+ Years (1 of 2 - PCV) [facility] Comment on above: Postponed from 1963 (Patient Refus ed) Start: 09-15-2024 Pulse volume recorder pneumoplethysmography US arterial pvr rest [facility] Start: 09-01-2024 End: 09-01-2025 CBC W Auto Differential panel - Blood CBC and differential Lab Routine Type 2 diabetes mellitus with diabetic polyneuropathy, without long-term current use of insulin ([facility]/HCC) Expected: 09/01/2024 (Approximate), Expires: 09/01/2025 [facility] Comment on above: Expected: 09/01/2024 (Approximate), Expi res: 09/01/2025 Start: 09-01-2024 End: 09-01-2025 Comprehensive metabolic 2000 panel - Serum or Plasma Comprehensive metabolic panel Lab Routine Type 2 diabetes mellitus with diabetic polyneuropathy, without long-term current use of insulin ([facility]/HCC) Expected: 09/01/2024 (Approximate), Expires: 09/01/2025 [facility] Comment on above: Expected: 09/01/2024 (Approximate), Expi res: 09/01/2025 Start: 09-01-2024 End: 09-01-2025 Hemoglobin A1c/Hemoglobin.total in Blood Hemoglobin A1c Lab Routine Type 2 diabetes mellitus with diabetic polyneuropathy, without long-term current use of insulin ([facility]/HCC) Expected: 09/01/2024 (Approximate), Expires: 09/01/2025 [facility] Comment on above: Expected: 09/01/2024 (Approximate), Expi res: 09/01/2025 Start: 09-01-2024 End: 09-01-2024 Patient encounter procedure [facility] Comment on above: Arrived Start: 08-26-2024 End: 08-26-2024 Patient encounter procedure 08/26/2024 11:20 AM EDT Office Visit [facility] [address] [place] [address] Earnest Figueroa MD [address] [place] [address] [facility] Start: 08-16-2024 End: 08-16-2024 Patient encounter procedure 08/16/2024 1:00 PM EDT [facility] [address] [place] [address] Alla Santana NP [address] [place] [phone] Polyneuropathy (Primary Dx); Paresthesia [facility] [address] Comment on above: Polyneuropathy (Primary Dx); Paresthesia Start: 07-26-2024 Urine screening for protein Diabetes: Urine Protein Screening [facility] Start: 07-04-2024 Influenza vaccination Influenza Vaccine (#1) [facility] Start: 1955 Screening for malignant neoplasm of colon [facility] Microalbumin/Creatin ine panel in random Urine Microalbumin / creatinine urine ratio Lab Routine Type 2 diabetes mellitus with diabetic polyneuropathy, without long-term current use of insulin ([facility]) Ordered: 09/01/2024 [facility] Work Phone: Comment on above: Ordered: 09/01/2024 Immunizations Immunization Date Immunization Notes Care Provider Yordy matias 10-13-2021 influenza, injectabl e, quadrivalent, preservative free Alla Santana [employer]ILLRO[employer] SUPERVISOR Work Phone: [facility] 10-13-2021 influenza virus vacc ine, unspecified formulation Alla Santana [employer]ILLRO[employer] SUPERVISOR Work Phone: [facility] 08-20-2016 influenza, injectabl e, quadrivalent, contains preservative Alla Santana MILLROOM SUPERVISOR Work Phone: [facility] Payers Date Payer Category Payer Self-pay 2023 Medicare MEDICARE [id number] 2023 Medicare [id number] 2023 [facility] [id number] 2023 Unknown [id number] 1955 Unknown [id number] 2.16.840.1.774065.3.579. 2.593 1957 Unknown [id number] 2.16.840.1.064107.3.579. 2.593 1957 Unknown [id number] 2.16.840.1.082696.3.579. 2.593 1957 Unknown [id number] 2.16.840.1.848406.3.579. 2.593 1957 Unknown [id number] 2.16.840.1.217090.3.579. 2.1259 1957 Unknown [id number] 2.16.840.1.555581.3.579. 2.1259 1957 Unknown [id number] 2.16.840.1.437618.3.579. 2.1259 1957 Unknown [id number] 2.16.840.1.733796.3.579. 2.1259 1957 Unknown [id number] 2.16.840.1.879480.3.579. 2.1259 1957 Unknown [id number] 2.16.840.1.085573.3.579. 2.1259 1957 Unknown [id number] 2.16.840.1.693349.3.579. 2.1259 1957 Unknown [id number] 2.16.840.1.779017.3.579. 2.1259 1957 Unknown [id number] 2.16.840.1.315131.3.579. 2.1259 1957 Unknown [id number] 2.16.840.1.986560.3.579. 2.1259 Unknown [id number] Unknown [id number] 2.16.840.1.071761.3.579. 2.531 Social History Date Type Detail Facility Start: 04-21-2024 Tobacco smoking status NHIS Ex-smoker [facility] History of tobacco use Current smoker [facility] History of tobacco use Cigarette Smoker [facility] Start: 04-21-2024 Tobacco use and exposure Smokeless tobacco non-user [facility] Start: 2024 End: 09-01-2024 Alcoholic beverage intake Lifetime non-drinker (finding) [facility] Start: 06-01-2024 End: 06-15-2024 History of Social function [facility] Start: 06-01-2024 End: 06-15-2024 Tobacco use panel [facility] Start: 1955 Sex assigned at Not on file [facility] Tobacco smoking status [facility] Unknown if ever smoked [facility] Work Phone: Start: 09-16-2024 Sex Male (finding) [facility] Start: 1955 Sex Assigned At Male F [facility] NEGATED: Highlighted rowStart: NINF History of tobacco use Passive smoker [facility] Medical Equipment Procedure Code Equipment Code Equipment Origin al Text Equipment Identifier Dates Inject 1 each un charlene the skin Daily Use as instructed [id number] Start: 01-01-2024 End: 12-31-2024 Clinical Notes 08-16-2024 to 09-16-2024 Kaylyn Kelly, RONNY - 09/03/2024 7:53 AM Carissa Kelly, RONNY - 09/03/2024 7:53 AM Carissa Kelly, RONNY - 09/01/2024 2:00 PM EDTPatient InstructionsPatient Instructions Note Date & Type Note Facility 09-16-2024 Radiology Diagnostic study note [address] [place] [address] Ultrasound Report Signed Patient: Laura Song JR MR#: [id number] : 1955 Acct:[id number] Age/Sex: 69 / M ADM Date: 4 Loc: Room: Type: [facility] Attending Dr: Joe Dowell MD Ordering Provider: Joe Dowell MD Date of Service: 09/15/24 US/US arterial pvr rest LE: I70.213 - Atherosclerosisof [place] arteries of extremiti... Copies to: Joe Dowell MD~ LOWER EXTREMITY SEGMENTAL ARTERIAL DOPSCAN (PVR) INDICATION: Leg pain PROCEDURE: Right arm blood pressure is 126 , left is 114 . Pressures throughout the right leg are 165 at the high thigh, at the 182 low thigh, 139 at the calf, 134 at the ankle using the posterior tibial artery, and 139 at the ankle using the dorsalis pedis artery with ankle-brachial index of 1.061.10 . Pressures throughout the left leg are 156 at the high thigh, at the 160 low thigh, 123 at the calf and 132 at the ankle using the posterior tibial artery, and 125 at the ankle using the dorsalis pedis artery with ankle-brachial index of 1.05 0.99 . Wave forms by plethysmography are normal. US/US arterial pvr rest LE IMPRESSION: NO HEMODYNAMICALLY SIGNIFICANT PERIPHERAL VASCULAR OCCLUSIVE DISEASE AT REST IN EITHER LOWER EXTREMITY. Impression dictated by: Joe Dowell M.D.09/16/2024 8:49 AM Dictation Location: [place] [address] Tech: Nancy Yarbrough Transcribed By: TRICIA 09/16/2449 Dictated By: Joe Dowell MD 09/16/2448 Signed By: 09/16/2449 [facility] Work Phone: 09-03-2024 History of Present illness Narrative Associated Problem(s): Other hyperlipidemia (CMS/HCC) Currently taking Atorvastatin 20mg Denies any myalgias. Continue current regimen. Associated Problem(s): Type 2 diabetes mellitus with diabetic polyneuropathy, with long-term current use of insulin ([facility]) Most recent labs: A1C 6.4% Has been out of free style sensor for 6 weeks. Several episodes of hypoglycemia reported. Will decrease Glipizide to 5mg BID. Patient educated on lifestyle modifications, dietary restrictions, signs and symptoms of hypoglycemia/hyperglycemia and importance of eating regular consistent meals. Stressed upon importance of checking blood glucose at home and bring blood glucose log to appointments. All questions, concerns answered and addressed. Encouraged to call office if persistent hypoglycemia/hyperglycemia on home glucose monitoring noted. Images from the original note were not included. Subjective Patient ID: Laura Medina is a 69 y.o. male who presents for Diabetes. Diabetes Pertinent negatives for hypoglycemia include no dizziness, headaches, nervousness/anxiousness or tremors. Pertinent negatives for diabetes include no chest pain, no fatigue, no polydipsia, no polyphagia, no polyuria and no weakness. Specialists: Neurology-Dr. Santana HLD: Currently taking Atorvastatin 20mg Denies any myalgias. Continue current regimen. important suggestion Newer results are available. Click to view them now. Component Ref Range & Units 3 mo ago (05/19/24) 4 mo ago (04/28/24) 4 mo ago (04/28/24) 4 mo ago (04/19/24) 7 mo ago (02/02/24) TRIGLYCERIDES <=150 mg/dL 83 607 R, CM 7.0 R 493 R, CM 144 CHOLESTEROL <=200 mg/dL 119 4.3 Abnormal R, CM 3.0 Abnormal R, CM 187 HDL CHOLESTEROL 40 - 60 mg/dL 37 Low 41 CM Comment: > or =60 mg/dl - LOW CARDIOVASCULAR RISK <40 mg/dl - HIGH CARDIOVASCULAR RISK LDL CHOLESTEROL CALCULATED mg/dL 66.0 117.2 CM Comment: <100 mg/dl OPTIMAL 100-129 mg/dl NEAR OR ABOVE OPTIMAL 130-159 mg/dl BORDERLINE HIGH 160-189 mg/dl HIGH >190 mg/dl VERY HIGH VLDL CHOLESTEROL mg/dL 16.6 28.8 CHOL HDL RATIO 3.2 4.6 CM Comment: 3.3 - 4.4 LOW RISK 4.4 - 7.1 AVERAGE RISK 7.1 - 11.0 MODERATE RISK >11.0 HIGH RISK Resulting Agency [facility] DMII: Most recent labs: A1C6.4% Has been out of free style sensor for 6 weeks. Several episodes of hypoglycemia reported. Will decrease Glipizide to 5mg BID. Patient educated on lifestyle modifications, dietary restrictions, signs and symptoms of hypoglycemia/hyperglycemia and importance of eating regular consistent meals. Stressed upon importance of checking blood glucose at home and bring blood glucose log to appointments. All questions, concerns answered and addressed. Encouraged to call office if persistent hypoglycemia/hyperglycemia on home glucose monitoring noted. Education: Check blood sugars daily, notify if <70 or >200. Take medications (pills or insulin) as directed. Monitor for s/s of hypoglycemia (sweaty, dizziness, nausea, vomiting, or shakiness). Watch for increase in thirst, urination, or appetite. Inspect feet frequently monitoring for open wounds , and also recommend yearly eye exam. Pt should attempt to remain as physically active as chronic conditions allow, as well as trying to follow a diet low in carbohydrates, and simple sugars. Review of Systems Constitutional: Negative for activity change, appetite change, chills, diaphoresis, fatigue, fever and unexpected weight change. HENT: Negative for congestion, ear pain, rhinorrhea, sinus pressure, sinus pain, sneezing, sore throat, trouble swallowing and voice change. Eyes: Negative for visual disturbance. Respiratory: Negative for cough, chest tightness, shortness of breath and wheezing. Cardiovascular: Negative for chest pain, palpitations and leg swelling. Gastrointestinal: Negative for abdominal distention, abdominal pain, blood in stool, constipation, diarrhea and vomiting. Genitourinary: Negative for decreased urine volume, dysuria, flank pain, frequency, hematuria and urgency. Musculoskeletal: Negative for arthralgias, gait problem, joint swelling and myalgias. Skin: Negative for rash. Neurological: Negative for dizziness, tremors, syncope, weakness, light-headedness and headaches. Psychiatric/Behavioral: Negative for decreased concentration and suicidal ideas. The patient is not nervous/anxious. Hematological: Does not bruise/bleed easily. Endocrine: Negative for cold intolerance, heat intolerance, polydipsia, polyphagia and polyuria. Objective Physical Exam Vitals reviewed. Constitutional: Appearance: Normal appearance. HENT: Head: Normocephalic and atraumatic. Right Ear: Tympanic membrane normal. Left Ear: Tympanic membrane normal. Nose: Nose normal. Mouth/Throat: Mouth: Mucous membranes are moist. Pharynx: Oropharynx is clear. Eyes: Pupils: Pupils are equal, round, and reactive to light. Cardiovascular: Rate and Rhythm: Normal rate and regular rhythm. Pulses: Normal pulses. Heart sounds: Normal heart sounds. Pulmonary: Effort: Pulmonary effort is normal. Breath sounds: Normal breath sounds. Abdominal: General: Abdomen is flat. Bowel sounds are normal. Palpations: Abdomen is soft. Musculoskeletal: General: Normal range of motion. Cervical back: Normal range of motion. Skin: General: Skin is warm and dry. Capillary Refill: Capillary refill takes less than 2 seconds. Neurological: General: No focal deficit present. Mental Status: He is alert and oriented to person, place, and time. Psychiatric: Mood and Affect: Mood normal. Behavior: Behavior normal. Assessment/Plan Problem List Items Addressed This Visit Type 2 diabetes mellitus with diabetic polyneuropathy, with long-term current use of insulin ([facility]) - Primary Most recent labs: A1C 6.4% Has been out of free style sensor for 6 weeks. Several episodes of hypoglycemia reported. Will decrease Glipizide to 5mg BID. Patient educated on lifestyle modifications, dietary restrictions, signs and symptoms of hypoglycemia/hyperglycemia and importance of eating regular consistent meals. Stressed upon importance of checking blood glucose at home and bring blood glucose log to appointments. All questions, concerns answered and addressed. Encouraged to call office if persistent hypoglycemia/hyperglycemia on home glucose monitoring noted. Relevant Medications Continuous Glucose Sensor (FreeStyle Nakia 2 Sensor) misc pregabalin (Lyrica) 200 MG capsule glipiZIDE (Glucotrol) 10 MG tablet Diabetic neuropathy (CMS/HCC) Relevant Medications pregabalin (Lyrica) 200 MG capsule Other hyperlipidemia (CMS/HCC) Currently taking Atorvastatin 20mg Denies any myalgias. Continue current regimen. Type 2 diabetes mellitus with diabetic polyneuropathy, without long-term current use of insulin ([facility]) Relevant Medications Continuous Glucose Sensor (FreeStyle Nakia 2 Sensor) misc pregabalin (Lyrica) 200 MG capsule glipiZIDE (Glucotrol) 10 MG tablet Other Relevant Orders Microalbumin / creatinine urine ratio Hemoglobin A1c Comprehensive metabolic panel CBC and differential documented in this encounter [facility] 09-01-2024 Instructions Kaylyn Kelly NP - 09/01/2024 2:00 PM EDT FASTING labs ordered. Nothing to eat or drink for 12 hours prior to blood draw. Water and black coffee ok. Education: Check blood sugars daily, notify if <70 or >200. Take medications (pills or insulin) as directed. Monitor for s/s of hypoglycemia (sweaty, dizziness, nausea, vomiting, or shakiness). Watch for increase in thirst, urination, or appetite. Inspect feet frequently monitoring for open wounds , and also recommend yearly eye exam. Pt should attempt to remain as physically active as chronic conditions allow, as well as trying to follow a diet low in carbohydrates, and simple sugars. documented in this encounter [facility] 08-26-2024 History of Present illness Narrative Laura Medina is a 69 y.o. male Earnest Figueroa MD presents with chief complaint of Testicular Hypofunction HPI: IM :08/2024 Follow-up visit 08/26/2024 for lab testosterone 431 ( [phone]), LH 5.8, FSH 4.2, prolactin 10.9, sex hormone binding globulin 62, ferritin 39. HPI : 05/2024 New patient sent from [facility] for abnormal testosterone level, looks like most likely lab error because lab done in 04/19/2024, testosterone 493 and then in 04/26/2024 and then repeated at the same day, 607. Free level in the low side on that day, 4.3 (6.6-1.18), prolactin 13 in 04/26, but in 04/19, it was 406, most likely just lab error. FSH 3.2, LH 7.0. He has diabetes. His A1c in good range. SUBJECTIVE: MEDICATIONS: Current Outpatient Medications Medication Instructions atorvastatin (LIPITOR) 20 mg, Oral, Daily Carboxymethylcellulose Sodium (EYE DROPS OP) Administer into affected eye(s) Continuous Blood Gluc Evening Or Night Nurse Supervisor (FreeStyle Nakia 2 [place]) device No dose, route, or frequency recorded. Continuous Blood Gluc Sensor (FreeStyle Nakia 2 Sensor) misc No dose, route, or frequency recorded. dorzolamide-timolol (Cosopt) 2-0.5 % ophthalmic solution 1 drop, 2 times daily glipiZIDE (GLUCOTROL) 10 mg, Oral, 2 times daily before meals insulin pen needle 31G x 4 mm misc 1 each, Subcutaneous, Daily, Use as instructed Lantus SoloStar 30 Units, Subcutaneous, Nightly pregabalin (LYRICA) 200 mg, Oral, 3 times daily sildenafil (VIAGRA) 100 mg, Oral, Daily PRN SITagliptin (JANUVIA) 100 mg, Oral, Daily Trulicity 1.5 mg, Subcutaneous, Weekly ALLERGIES: Allergies Allergen Reactions Amoxicillin-Pot Clavulanate Diarrhea Empagliflozin-Linagliptin Unknown Muscle aches Metformin And Related Unknown Heart racing Past Medical History: Diagnosis Date Arthritis Autoimmune disease (CMS/HCC) Decreased libido Hypopituitarism (CMS/HCC) Peripheral neuropathy Poorly controlled type 2 diabetes mellitus (CMS/HCC) Pulse regularly irregular Type 2 diabetes mellitus (CMS/HCC) No past surgical history on file. REVIEW OF SYMPTOMS: 14 POINT OF SYSTEM REVIEWED AND NEGATIVE OBJECTIVE: Visit Vitals Pulse 73 Comment: O2 SAT 99 Resp 16 Ht 5' 10 Wt 197 lb BMI 28.27 kg/m Smoking Status Former BSA 2.1 m Physical Exam Constitutional: Appearance: Normal appearance. He is normal weight. HENT: Head: Normocephalic and atraumatic. Right Ear: External ear normal. Nose: Nose normal. Mouth/Throat: Pharynx: Oropharynx is clear. Eyes: Extraocular Movements: Extraocular movements intact. Pupils: Pupils are equal, round, and reactive to light. Cardiovascular: Rate and Rhythm: Normal rate and regular rhythm. Pulmonary: Effort: Pulmonary effort is normal. Abdominal: General: Abdomen is flat. Palpations: Abdomen is soft. Musculoskeletal: General: Normal range of motion. Skin: General: Skin is warm. Neurological: General: No focal deficit present. Mental Status: He is alert. Psychiatric: Mood and Affect: Mood normal. Behavior: Behavior normal. ASSESSMENT AND PLAN: Assessment/Plan Diagnoses and all orders for this visit: Secondary male hypogonadism Total level within normal limits we 431, no need for replacementat this time we will watch we will see PRN Low libido Follow up if symptoms worsen or fail to improve. documented in this encounter [facility] 08-16-2024 History of Present illness Narrative Images from the original note were not included. Alla Santana NP Chief Complaint Patient presents with Peripheral Neuropathy Subjective Laura Medina is a 69 y.o. male. HPI The [...] Commonly known as: Cosopt EYE DROPS OP FreeStyle Nakia 2 [place] device FreeStyle Nakia 2 Sensor misc glipiZIDE [...] wrist extensors , wrist flexor , and inspector sheet metal parts strength 5/5. LUE strength deltoid , biceps , triceps , wrist extensors , wrist flexor , and inspector sheet metal parts strength 5/5. RLE strength iliopsoas, quadriceps, tibialis [...] reflex 0. LLE Knee reflex 0. Coordination: [id number] testing normal. Rapid alternating movements are normal. [...] new or worsening symptoms. Alla Santana NP [facility] Advanced Neurology documented in this encounter [facility] 08-16-2024 Instructions Alla Santana NP - 08/16/2024 1:00 PM EDT - Stop duloxetine documented in this encounter [facility] Evaluation note Diagnosis Type 2 diabetes mellitus with diabetic polyneuropathy, without long-term current use of insulin ([facility])- Primary Screening for hyperlipidemia Screening for lipoid disorders Annual physical exam Routine general medical examination at a [facility] Diabetic polyneuropathy associated with type 2 diabetes mellitus (CMS/HCC) Type 2 diabetes mellitus with diabetic polyneuropathy, without long-term current use of insulin (CMS/HCC)- Primary Diabetic polyneuropathy associated with type 2 diabetes mellitus (CMS/HCC) Other hyperlipidemia (CMS/HCC) Other male erectile dysfunction Type 2 diabetes mellitus with diabetic polyneuropathy, with long-term current use of insulin (CMS/HCC)- Primary Other male erectile dysfunction Other hyperlipidemia (CMS/HCC) Diabetic polyneuropathy associated with type 2 diabetes mellitus (CMS/HCC) Type 2 diabetes mellitus with diabetic polyneuropathy, without long-term current use of insulin (CMS/HCC) 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 Type 2 diabetes mellitus with diabetic polyneuropathy, with long-term current use of insulin (CMS/HCC)- Primary Other male erectile dysfunction Other hyperlipidemia (CMS/HCC) Drug-induced weight gain Polyneuropathy- Primary Unspecified hereditary and idiopathic peripheral neuropathy Paresthesia Disturbance of skin sensation documented in this encounter [facility] Healthcare[facility]* Diagnosis Type 2 diabetes mellitus with diabetic polyneuropathy, without long-term current use of insulin (CMS/HCC)- Primary Screening for hyperlipidemia Screening for lipoid disorders Annual physical exam Routine general medical examination at a [facility] Diabetic polyneuropathy associated with type 2 diabetes mellitus (CMS/HCC) Type 2 diabetes mellitus with diabetic polyneuropathy, without long-term current use of insulin (CMS/HCC)- Primary Diabetic polyneuropathy associated with type 2 diabetes mellitus (CMS/HCC) Other hyperlipidemia (CMS/HCC) Other male erectile dysfunction Type 2 diabetes mellitus with diabetic polyneuropathy, with long-term current use of insulin (CMS/HCC)- Primary Other male erectile dysfunction Other hyperlipidemia (CMS/HCC) Diabetic polyneuropathy associated with type 2 diabetes mellitus (CMS/HCC) Type 2 diabetes mellitus with diabetic polyneuropathy, without long-term current use of insulin (CMS/HCC) 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 Type 2 diabetes mellitus with diabetic polyneuropathy, with long-term current use of insulin (CMS/HCC)- Primary Other male erectile dysfunction Other hyperlipidemia (CMS/HCC) Drug-induced weight gain Type 2 diabetes mellitus without complications (CMS/HCC) Type 2 diabetes mellitus with diabetic polyneuropathy, without long-term current use of insulin (CMS/HCC) documented in this encounter [facility] HealthcareEvaluation note* Diagnosis Type 2 diabetes mellitus with diabetic polyneuropathy, without long-term current use of insulin (CMS/HCC)- Primary Screening for hyperlipidemia Screening for lipoid disorders Annual physical exam Routine general medical examination at a [facility] Diabetic polyneuropathy associated with type 2 diabetes mellitus (CMS/HCC) Type 2 diabetes mellitus with diabetic polyneuropathy, without long-term current use of insulin (CMS/HCC)- Primary Diabetic polyneuropathy associated with type 2 diabetes mellitus (CMS/HCC) Other hyperlipidemia (CMS/HCC) Other male erectile dysfunction Type 2 diabetes mellitus with diabetic polyneuropathy, with long-term current use of insulin (CMS/HCC)- Primary Other male erectile dysfunction Other hyperlipidemia (CMS/HCC) Diabetic polyneuropathy associated with type 2 diabetes mellitus (CMS/HCC) Type 2 diabetes mellitus with diabetic polyneuropathy, without long-term current use of insulin (CMS/HCC) 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 Type 2 diabetes mellitus with diabetic polyneuropathy, with long-term current use of insulin (CMS/HCC)- Primary Other male erectile dysfunction Other hyperlipidemia (CMS/HCC) Drug-induced weight gain Type 2 diabetes mellitus with diabetic polyneuropathy, without long-term current use of insulin ([facility]/HCC) documented in this encounter [facility] HealthcareEvaluation note* Diagnosis Type 2 diabetes mellitus with diabetic polyneuropathy, without long-term current use of insulin (CMS/HCC)- Primary Screening for hyperlipidemia Screening for lipoid disorders Annual physical exam Routine general medical examination at a [facility] Diabetic polyneuropathy associated with type 2 diabetes mellitus (CMS/HCC) Type 2 diabetes mellitus with diabetic polyneuropathy, without long-term current use of insulin (CMS/HCC)- Primary Diabetic polyneuropathy associated with type 2 diabetes mellitus (CMS/HCC) Other hyperlipidemia (CMS/HCC) Other male erectile dysfunction Type 2 diabetes mellitus with diabetic polyneuropathy, with long-term current use of insulin (CMS/HCC)- Primary Other male erectile dysfunction Other hyperlipidemia (CMS/HCC) Diabetic polyneuropathy associated with type 2 diabetes mellitus (CMS/HCC) Type 2 diabetes mellitus with diabetic polyneuropathy, without long-term current use of insulin (CMS/HCC) 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 Type 2 diabetes mellitus with diabetic polyneuropathy, with long-term current use of insulin (CMS/HCC)- Primary Other male erectile dysfunction Other hyperlipidemia (CMS/HCC) Drug-induced weight gain Secondary male hypogonadism- Primary Other testicular hypofunction Low libido documented in this encounter [facility] HealthcareEvaluation note* Diagnosis Type 2 diabetes mellitus with diabetic polyneuropathy, without long-term current use of insulin (CMS/HCC)- Primary Screening for hyperlipidemia Screening for lipoid disorders Annual physical exam Routine general medical examination at a [facility] Diabetic polyneuropathy associated with type 2 diabetes mellitus (CMS/HCC) Type 2 diabetes mellitus with diabetic polyneuropathy, without long-term current use of insulin (CMS/HCC)- Primary Diabetic polyneuropathy associated with type 2 diabetes mellitus (CMS/HCC) Other hyperlipidemia (CMS/HCC) Other male erectile dysfunction Type 2 diabetes mellitus with diabetic polyneuropathy, with long-term current use of insulin (CMS/HCC)- Primary Other male erectile dysfunction Other hyperlipidemia (CMS/HCC) Diabetic polyneuropathy associated with type 2 diabetes mellitus (CMS/HCC) Type 2 diabetes mellitus with diabetic polyneuropathy, without long-term current use of insulin (CMS/HCC) 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 Type 2 diabetes mellitus with diabetic polyneuropathy, with long-term current use of insulin (CMS/HCC)- Primary Other male erectile dysfunction Other hyperlipidemia (CMS/HCC) Drug-induced weight gain Type 2 diabetes mellitus with diabetic polyneuropathy, with long-term current use of insulin (CMS/HCC) documented in this encounter [facility] HealthcareEvaluation note* Diagnosis Type 2 diabetes mellitus with diabetic polyneuropathy, without long-term current use of insulin (CMS/HCC)- Primary Screening for hyperlipidemia Screening for lipoid disorders Annual physical exam Routine general medical examination at a [facility] Diabetic polyneuropathy associated with type 2 diabetes mellitus (CMS/HCC) Type 2 diabetes mellitus with diabetic polyneuropathy, without long-term current use of insulin (CMS/HCC)- Primary Diabetic polyneuropathy associated with type 2 diabetes mellitus (CMS/HCC) Other hyperlipidemia (CMS/HCC) Other male erectile dysfunction Type 2 diabetes mellitus with diabetic polyneuropathy, with long-term current use of insulin (CMS/HCC)- Primary Other male erectile dysfunction Other hyperlipidemia (CMS/HCC) Diabetic polyneuropathy associated with type 2 diabetes mellitus (CMS/HCC) Type 2 diabetes mellitus with diabetic polyneuropathy, without long-term current use of insulin ([facility]/HCC) 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 Type 2 diabetes mellitus with diabetic polyneuropathy, with long-term current use of insulin ([facility]/HCC)- Primary Other male erectile dysfunction Other hyperlipidemia (CMS/HCC) Drug-induced weight gain Type 2 diabetes mellitus with diabetic polyneuropathy, with long-term current use of insulin (CMS/HCC)- Primary Type 2 diabetes mellitus with diabetic polyneuropathy, without long-term current use of insulin (CMS/HCC) Diabetic polyneuropathy associated with type 2 diabetes mellitus (CMS/HCC) Other hyperlipidemia (CMS/HCC) documented in this encounter [facility] noteNo assessment information [facility] Work Phone: Summary Purpose Family History No Family History Records FoundNo Family History Records FoundNo Family History Records FoundNo Family History Records FoundNo Family History Records Found Advance Directives No Advanced Directives Records Found Advance Directive Response Recorded Date/ Time Advance Directives No September 06, 2024 1:34pm Chief Complaint and Reason for Visit Chief Complaint Admit Date I70.213 September 15, 2024 1:30pm Additional Source Comments (unrecognized sect ion and content) No Status Records FoundNo Status Records FoundNo Status Records FoundNo Status Records FoundNo Status Records Found INFORMATION SOURCE (unrecogn ized section and content) DATE [facility] DATE CREATED AUTHOR AUTHOR'S ORGANIZ ATION 11/13/2021 [facility] DATE CREATED AUTHOR AUTHOR'S ORGANIZ ATION 03/18/2023 [facility] DATE CREATED AUTHOR AUTHOR'S ORGANIZ ATION 09/03/2024 [facility] DATE CREATED AUTHOR AUTHOR'S ORGANIZ ATION 09/20/2024 [facility] Care Teams (unrecognized sec tion and content) Bank Accountant Relationship Specialty Start Date End Date Shaikh Hunt MD [address] [place] [address] PCP - General Internal Medicine 02/19/24 Bank Accountant Relationship Specialty Start Date End Date Shaikh Hunt MD [address] [place] [address] PCP - General Internal Medicine 02/19/24 Bank Accountant Relationship Specialty Start Date End Date Shaikh Hunt MD [address] [place] [address] PCP - General Internal Medicine 02/19/24 Bank Accountant Relationship Specialty Start Date End Date Shaikh Hunt MD [address] [place] [phone] PCP - General Internal Medicine 02/19/24 Bank Accountant Relationship Specialty Start Date End Date Shaikh Hunt MD [address] [place] [address] PCP - General Internal Medicine 02/19/24 Bank Accountant Relationship Specialty Start Date End Date Shaikh Hunt MD [address] [place] [address] PCP - General Internal Medicine 02/19/24 Bank Accountant Relationship Specialty Start Date End Date Marty Avendaño MD [address] [place] [address] PCP - General Family Medicine 08/31/24 Kaylyn Kelly NP [address] [place] [phone] Nurse Practitioner Family Medicine 08/31/24 Bank Accountant Relationship Specialty Start Date End Date Marty Avendaño MD [address] [place] [address] PCP - General Family Medicine 08/31/24 Kaylyn Kelly NP [address] [place] [address] Nurse Practitioner Family Medicine 08/31/24 Team Status: Active Member Role Status Dates LUIS ALFREDO Perez Primary Care Provider Jian sherman Team Status: Inactive Member Role Status Dates Joe Dowell MD Attending Provider Active S tart: September 15, 2024 End: September 15, 2024 LUIS ALFREDO Perez Primary Care Provider Jian tive Start: September 15, 2024 End: September 15, 2024 Reason for Visit (unrecogniz ed section and content) Reason Comments Peripheral Neuropathy Reason Comments Med Refill Reason Comments Testicular Hypofunction Reason Comments Diabetes Goals (unrecognized section and content) Goals may be documented in a n alternate section FOR RECORDS PERTAINING TO PATIENTS WHO ARE [...] BE BASED ON THE PRIMARY CLINICAL RECORDS. [employer] provides no warranty or guarantee of the accuracy or completeness of information in this document.
[2024-11-26 12:40] LABS: Basophils Absolute Auto 0.1 10^3/uL (0.0-0.1); Basophils Percent Auto 0.8 % (0.2-2.0); Eosinophils Absolute Auto 0.4 10^3/uL (0.0-0.7); Eosinophils Percent Auto 4.3 % (0.9-7.0); Hematocrit 44.3 % (42.0-54.0); Hemoglobin 15.1 g/dL (14.0-18.0); Immature Granulocytes Abs Auto 0.03 10^3/uL (0.00-0.03); Immature Granulocytes Pct Auto 0.3 % (0.0-0.5); Lymphocytes Absolute Auto 1.1 10^3/uL (1.2-3.8); Lymphocytes Percent Auto 12.7 % (20.5-60.0); Mean Corpuscular HGB Conc 34.1 g/dL (29.9-35.2); Mean Corpuscular Hemoglobin 30.7 pg (25.9-34.0); Mean Platelet Volume 12.3 fL (9.5-13.5); Monocytes Percent Auto 11.9 % (1.7-12.0); Platelet Count 184 10^3/uL (150-450); Red Blood Count 4.92 10^6/uL (4.70-6.10); Red Cell Distribution Width 12.2 % (11.0-15.0); White Blood Count 8.6 10^3/uL (4.0-11.0)
[2024-11-26 13:11] LABS: Alanine Aminotransferase 78 U/L (16-63); Albumin Globulin Ratio 0.8; Albumin Level 3.4 g/dL (3.4-5.0); Alkaline Phosphatase 439 U/L (46-116); Anion Gap 13.4; Aspartate Amino Transferase 81 U/L (15-37); Bilirubin Total 2.4 mg/dL (0.2-1.0); Calcium 8.9 mg/dL (8.5-10.1); Carbon Dioxide 26.8 mmol/L (21.0-32.0); Chloride 98 mmol/L (98-107); Estimated GFR (African America >60 (>=60 mL/min/1.73m^2); Estimated GFR (Non-African Ame 56 (>=60 mL/min/1.73m^2); Globulin 4.4 g/dL; Glucose 100 mg/dL (74-106); Potassium 4.2 mmol/L (3.5-5.1); Sodium 134 mmol/L (136-145); Total Protein 7.8 g/dL (6.4-8.2)
[2024-11-26 13:29] LABS: Estimated Average Glucose 209 mg/dL; Glycohemoglobin A1C 8.9 % (4.5-6.2)
== END 2024-11-26 12:17 | disposition home or self-care (01) ==
LOC: LAB 12:19
DX: E11.42 Type 2 diabetes mellitus with diabetic polyneuropathy (principal)
CPT/HCPCS: 36415; 80053; 83036; 85025

== ENCOUNTER 2024-12-02 15:37 | Outpatient (OUT) | payer MEDICARE, SELFPAY ==
--- OUTSIDE RECORDS SUMMARY | 2024-12-02 15:47 | XMS_ITS | CCD ---
Author Organization [facility] CliniSyor Care Team Providers Care Membership Director Name Role Phone WEST, DR POORNIMA Murry Consulting Unavailable LANG, LAYNE Admitting Unavailable LANG, LAYNE Attending Unavailable REQUEST, NONE LISTED Primary Care Unavaila ble LANG LAYNE Consulting Unavailable FAWWAD, BOWEN H Attending Unavailable FAWWAD, BOWEN H Admitting Unavailable FAWWAD, BOWEN H Primary Care Unavailable FAWWAD, BOWEN H Consulting Unavailable FAWWAD, BOWEN H Attending Unavailable FAWWAD, BOWEN H Admitting Unavailable FAWWAD, BOWEN H Primary Care Unavailable FAWWAD, BOWEN H Consulting Unavailable LANG, LAYNE Admitting Unavailable LANG, LAYNE Consulting Unavailable LANG, LAYNE Attending Unavailable REQUEST, NONE LISTED Primary Care Unavaila Shaikh Gottlieb MD Primary Care Provider Marty Avendaño MD Primary Care Provider Kaylyn Kelly NP Unavailable [phone] Joe Dowell MD Attending Provider Leticia CUTTING DEPARTMENT SUPERVISOR-CaKylyn Primary Care [facility] er Kaylyn Kelly Primary Care Unavaila Joe Canseco Attending Unavailable Joe Dowell Admitting Unavailable ALLA SANTANA Attending Unavailable FAWSHAIKH HELMS Attending Unavailable ALISSA MURO Attending Unavailable SHAIKH HUNT Attending Unavailable ALLA SANTANA Attending Unavailable SHAIKH HUNT Attending Unavailable ALLA SANTANA Attending Unavailable ALLA SANTANA Attending Unavailable MARILEE, Referring Unavailable EARNEST FIGUEROA Attending Unavailable EARNEST FIGUEROA Referring Unavailable KAYLYN KELLY Attending Unavailabl e Allergies Allergy Classification Reported Allergen(s) Allergy Type Date of Onset Reaction(s) Facility (18 sources) empagliflozin / Linagliptin Drug Allergy 8 Unknown [facility] Healthcare (18 sources) Amoxicillin-Pot Clavulanate Drug Allergy 3 Diarrhea [facility] Healthcare (18 sources) Metformin And Related Drug Intolerance 8 Unknown [facility] Medications Current Medications Medication Drug Class(es) Dates Sig (Normalized) Sig (Original) atorvastatin 20 mg oral tablet (18 sources) HMG-CoA Reductase Inhibitor Start: End: take 1 tablet by mouth once daily atorvastatin (Lipitor) 20 MG tablet Indications: Other hyperlipidemia (CMS/HCC) Take 1 tablet (20 mg) by mouth Daily 90 tablet 1 06/01/2024 Active Carboxymethylcellulose (18 sources) Carboxymethylcel lulose Sodium (EYE DROPS OP) Administer into affected eye(s) Active Continuous Blood Gluc Press Operator Heavy Duty (FreeStyle Nakia 2 Valencia) device (18 sources) Continuous Blood Gluc Press Operator Heavy Duty (FreeStyle Nakia 2 Valencia) device Active Continuous Glucose Sensor (FreeStyle Nakia 2 Sensor) misc (7 sources) Start: Continuous Glucose Sensor (FreeStyle Nakia 2 Sensor) misc Indications: Type 2 diabetes mellitus with diabetic polyneuropathy, without long-term current use of insulin (CMS/HCC) 1 each continuously 1 each 3 09/01/2024 Active dorzolamide 20 mg/ml / timolol 5 mg/ml ophthalmic solution (18 sources) Carbonic Anhydrase Inhibitor, beta-Adrenergic Lev take 1 drop(s) into the eye(s) in the morning dorzolamide-timolol (Cosopt) 2-0.5 % ophthalmic solution Administer 1 drop into both eyes in the morning and 1 drop before bedtime. Active 0.5 ml dulaglutide 3 mg/ml auto-injector (18 sources) GLP-1 Receptor Agonist Start: inject 1.5 [...] (Side effects) glipiZIDE 10 mg oral tablet (20 sources) Sulfonylurea Start: take 0.5 tablet by [...] ml insulin glargine 100 unt/ml pen injector (19 sources) Insulin Analog Start: 04-26-2024 End: 02-27-2025 insulin glargine (Lantus SoloStar) 100 UNIT/ML pen Indications: Type 2 diabetes mellitus with diabetic polyneuropathy, with long-term current use of insulin (CMS/HCC) Inject 30 Units under the skin at bedtime 27 mL 1 08/31/2024 02/27/2025 Active pregabalin 200 mg oral capsule (19 sources) Start: 04-05-2024 End: 11-30-2024 pregabalin (Lyrica) 200 MG capsule Indications: Type 2 diabetes mellitus with diabetic polyneuropathy, without long-term current use of insulin (CMS/HCC) , Diabetic polyneuropathy associated with type 2 diabetes mellitus (CMS/HCC) Take 1 capsule (200 mg) by mouth Daily 30 capsule 2 09/01/2024 Active sildenafil 100 mg oral tablet (17 sources) Phosphodiesterase 5 Inhibitor Start: 04-21-2024 take 1 tablet by mouth once daily as needed sildenafil (Viagra) 100 MG tablet Indications: Other male erectile dysfunction Take 1 tablet (100 mg) by mouth Daily as needed for erectile dysfunction 30 tablet 2 04/21/2024 Active SITagliptin 100 mg oral tablet (19 sources) Dipeptidyl Peptidase 4 Inhibitor Start: 03-22-2024 [...] 03-13-2023 08-23-2024 Chronic Disorders of lipid metabolism (20 sources) Hyperlipidemia; Translations: [Other hyperlipidemia] Onset: 02-19-2024 02-19-2024 Chronic Other endocrine disorders (18 sources) Hypotestosteronism; Translations: [Testicular hypofunction] Onset: 05-03-2024 05-03-2024 Chronic Other endocrine disorders (2 sources) Male hypogonadism; Translations: [Testicular hypofunction] 08-26-2024 Chronic Other liver diseases (1 source) Elevated liver enzymes level; Translations: [Abnormal levels of other serum enzymes] 12-01-2024 Episodic Other male genital disorders (18 sources) Other male erectile dysfunction; Translations: [Impotence [...] Onset: 01-09-2023 Episodic Other nervous system disorders (4 sources) Paresthesia; Translations: [Paresthesia of skin] 08-16-2024 Episodic Peripheral and visceral atherosclerosis (1 source) Atherosclerosis of [place] arteries of extremities with intermittent claudication, bilateral legs; Translations: [Atherosclerosis of [place] arteries of extremities with intermittent claudication, bilateral legs] Onset: 09-15-2024 Chronic Residual codes; unclassified (2 sources) Reduced libido; Translations: [Decreased libido] 08-26-2024 Episodic Past or Other Problems Problem Classification Problem Date Documented Da te Episodic/Chronic Other and unspecified benign neoplasm (18 sources) History of polyp of colon; Translations: [Hx of colonic polyps] Onset: 02-19-2024 02-19-2024 Episodic Other nervous system disorders (18 sources) Paresthesia of lower extremity; Translations: [Paresthesia of skin] Onset: 03-16-2024 03-16-2024 Episodic Other nutritional; endocrine; and metabolic disorders (18 sources) H/O: endocrine disorder; Translations: [Personal history of other endocrine, nutritional and metabolic disease] Onset: 05-03-2024 05-03-2024 Episodic Other nutritional; endocrine; and metabolic disorders (18 sources) Weight increased; Translations: [Abnormal weight gain] Onset: 06-01-2024 06-01-2024 Episodic Other screening for suspected conditions (not mental disorders or infectious disease) (18 sources) Patient encounter status; Translations: [Encounter for screening for lipoid disorders] Onset: 10-02-2023 10-02-2023 Episodic Results Test Name Value Interpretation Reference Range Facility ALL CBC WITH AUTO DIFFon BASOPHILS ABSOLUTE AUTO 0.1 [facility] Basophils/100 WBC (Bld) 0.8 % 0.2 - 2.0 % [facility] Eosinophils/100 WBC (Bld) 4.3 % 0.9 - 7.0 % [facility] Erythrocyte distribution width (RBC) [Ratio] 12.2 % 11.0 - 15.0 % [facility] Hematocrit (Bld) [Volume fraction] 44.3 % 42.0 - 54.0 % [facility] ([facility]ld[facility] [Mass/Vol] 15.1 g/dL 14.0 - 18.0 g/dL [facility] IMMATURE GRANULOCYTES ABS AUTO 0.03 [facility] Immature granulocytes/100 WBC (Bld) 0.3 % 0.0 - 0.5 % [facility] Interpretation and review of laboratory results Abnormal [facility] LYMPHOCYTES ABSOLUTE AUTO 1.1 Low [facility] Lymphocytes/100 WBC (Bld) 12.7 % Low 20.5 - 60.0 % [facility] MCH (RBC) [Entitic mass] 30.7 pg 25.9 - 34.0 pg [facility] MCHC (RBC) [Mass/Vol] 34.1 g/dL 29.9 - 35.2 g/dL [facility] MCV (RBC) [Entitic vol] 90 fL 80.0 - 94.0 fL [facility] MONOCYTES ABSOLUTE AUTO 1 High [facility] Monocytes/100 WBC (Bld) 11.9 % 1.7 - 12.0 % [facility] NEUTROPHILS ABSOLUTE AUTO 6 [facility] Neutrophils/100 WBC (Bld) 70 % 43.0 - 75.0 % [facility] Platelet mean volume (Bld) [Entitic vol] 12.3 fL 9.5 - 13.5 fL [facility] EO # 0.4 [facility] PLT 184 [facility] RBC 4.92 [facility] WBC 8.6 [facility] US arterial pvr rest Janie US arterial pvr rest [facility] Main [place] [address] [place] [address] Ultrasound Report Signed Patient: Laura Song JR MR#: [id number] : 1955 Acct:[id number] Age/Sex: 69 / M ADM Date: 09/15/24 Loc: Room: Type: [facility] Attending Dr: Joe Dowell MD Ordering Provider: Joe Dowell MD Date of Service: 09/15/24 US/US arterial pvr rest LE: I70.213 - Atherosclerosis of [place] arteries of extremiti... Copies to: Joe Dowell [...] Joe Dowell M.D.09/16/2024 8:49 AM Dictation Location: [facility] Tech: Nancy Yarbrough Transcribed By: TRICIA 09/16/24848 Dictated By: Joe Dowell MD 09/16/24847 Signed By: 09/16/24848 Normal [facility] ALL BASIC METABOLIC PANELon 08-23-2024 Anion gap [Moles/Vol] 12.5 mmol/L [facility] Calcium [Mass/Vol] 8.9 mg/dL 8.5 - 10. 1 mg/dL [facility] Chloride [Moles/Vol] 103 mmol/L 98 - 10 7 mmol/L [facility] CO2 [Moles/Vol] 25.9 mmol/L 21.0 - 32.0 mmol/L [facility] Creatinine [Mass/Vol] 1.09 mg/dL 0.70 - 1.30 mg/dL [facility] GFR/1.73 sq M.predicted CKD-EPI (S/P/Bld) [Vol rate/Area] >60 >=60 mL/min/1.73m 2 [facility] Glucose [Mass/Vol] 272 mg/dL High 74 - 106 mg/dL [facility] Interpretation and review of laboratory results Abnormal [facility] Potassium [Moles/Vol] 4.4 mmol/L 3.5 - 5.1 mmol/L [facility] Sodium [Moles/Vol] 137 mmol/L 136 - 145 mmol/L [facility] TBH EGFR-NON AF CYMRAES >60 >=60 mL/min/1.73m 2 [facility] Urea nitrogen [Mass/Vol] 15 mg/dL 7.0 - 18.0 mg/dL [facility] Urea nitrogen/Creatinine [Mass ratio] 13.8 mg/mg [facility] AUTO DIFFon 03-07-2023 BASO # 0.0 103/ul Normal 0.0-0.1 [facility] Comment on above: Performed By: #### C BC #### [facility] [address] [address] [address] Stella Mora Basophils/100 WBC (Bld) 0.4 % Normal 0.2-2.0 [facility] Comment on above: Performed By: #### C BC #### [facility] [address] [address] [address] Stella Mora EO # 0.1 103/ul Normal 0.0-0.7 [facility] Comment on above: Performed By: #### C BC #### [facility] [address] [place] [address] Dr. Stella Mora Eosinophils/100 WBC (Bld) 0.7 % Critically low 0.9-7.0 [facility] Comment on above: Performed By: #### C BC #### [facility] [address] [place] [address] Dr. Stella Mora Erythrocyte distribution width (RBC) [Ratio] 11.9 % Normal 11.0-15.0 [facility] Comment on above: Performed By: #### C BC #### [facility] [address] [place] [address] Dr. Stella Mora Hematocrit (Bld) [Volume fraction] 43.5 % Normal 42.0-54.0 [facility] Comment on above: Performed By: #### C BC #### [facility] [address] [place] [address] Dr. Stella Mora Hemoglobin (Bld) [Mass/Vol] 15.6 g/dL Normal 14.0-18.0 [facility] Comment on above: Performed By: #### C BC #### [facility] [address] [place] [address] Dr. Stella Mora IG # 0.01 10e3/ul Normal 0.00-0.03 [facility] Comment on above: Performed By: #### C BC #### [facility] [address] [place] [address] Dr. Stella Mora IG % 0.1 % Normal 0.0-0.5 [facility] Comment on above: Performed By: #### C BC #### [facility] [address] [place] [address] Dr. Stella Mora LYMPH # 1.7 103/ul Normal 1.2-3.8 [facility] Comment on above: Performed By: #### C BC #### [facility] [address] [place] [address] Dr. Stella Mora Lymphocytes/100 WBC (Bld) 24.5 % Normal 20.5-60.0 [facility] Comment on above: Performed By: #### C BC #### [facility] [address] [place] [address] Dr. Stella Mora MANUAL DIFF REQ NO Normal [facility] Comment on above: Performed By: #### C BC #### [facility] [address] [place] [address] Dr. Stella Mora MCH (RBC) [Entitic mass] 31.8 pg Normal 25.9-34.0 [facility] Comment on above: Performed By: #### C BC #### [facility] [address] [place] [address] Dr. Stella Mora MCHC (RBC) [Mass/Vol] 35.9 g/dL Critically high 29.9-35.2 [facility] Comment on above: Performed By: #### C BC #### [facility] [address] [place] [address] Dr. Stella Mora MCV (RBC) [Entitic vol] 88.6 fL Normal 80.0-94.0 [facility] Comment on above: Performed By: #### C BC #### [facility] [address] [place] [address] Dr. Stella Mora MONO # 0.5 103/ul Normal 0.3-0.8 [facility] Comment on above: Performed By: #### C BC #### [facility] [address] [place] [address] Dr. Stella Mora Monocytes/100 WBC (Bld) 6.9 % Normal 1.7-12.0 [facility] Comment on above: Performed By: #### C BC #### [facility] [address] [place] [address] Dr. Stella Mora NEUT # 4.6 103/ul Normal 1.4-6.5 [facility] Comment on above: Performed By: #### C BC #### [facility] [address] [place] [address] Dr. Stella Mora Neutrophils/100 WBC (Bld) 67.4 % Normal 43.0-75.0 [facility] Comment on above: Performed By: #### C BC #### [facility] [address] [place] [address] Dr. Stella Mora Platelet mean volume (Bld) [Entitic vol] 10.7 fL Normal 9.5-13.5 [facility] Comment on above: Performed By: #### C BC #### [facility] [address] [place] [address] Dr. Stella Mora PLT 242 103/ul Normal 150-450 [facility] Comment on above: Performed By: #### C BC #### [facility] [address] [place] [address] Dr. Stella Mora RBC 4.91 106/ul Normal 4.70-6.10 [facility] Comment on above: Performed By: #### C BC #### [facility] [address] [place] [address] Dr. Stella Mora WBC 6.8 103/ul Normal 4.0-11.0 [facility] Comment on above: Performed By: #### C BC #### [facility] [address] [place] [address] Dr. Stella Mora GLYCOHEMOGLOBIN A1Con 2022 ADA RECOMMENDATION SEE BELOW Normal [facility] Comment on above: Result Comment: ADA RECOMMENDED LIMIT 4.0 - 6.0 ADA THERAPEUTIC TARGET < 7.0 ACTION SUGGESTED > 7.0 Performed By: #### A 1C #### [facility] [address] [place] [address] Dr. Stella Mora Glucose [Mass/Vol] 309 mg/dL Normal [facility] Comment on above: Performed By: #### A 1C #### [facility] [address] [place] [address] Dr. Stella Mora HbA1c (Bld) [Mass fraction] 12.4 % Critically high 4.5-6.2 [facility] Comment on above: Performed By: #### A 1C #### [facility] [address] [place] [address] Dr. Stella Mora PROF 14(COMP METB)on 023 Albumin [Mass/Vol] 4.0 g/dL Normal 3.4-5.0 [facility] Comment on above: Performed By: #### C MP #### [facility] [address] [place] [address] Dr. Stella Mora Albumin/Globulin [Mass ratio] 0.9 {ratio} Normal [facility] Comment on above: Performed By: #### C MP #### [facility] [address] [place] [address] Dr. Stella Mora ALP [Catalytic activity/Vol] 103 U/L Normal 46-116 [facility] Comment on above: Performed By: #### C MP #### [facility] [address] [place] [address] Dr. Stella Mora ALT [Catalytic activity/Vol] 45 U/L Normal 16-63 [facility] Comment on above: Performed By: #### C MP #### [facility] [address] [place] [address] Dr. Stella Mora Anion gap [Moles/Vol] 9.5 mmol/L Normal [facility] Comment on above: Performed By: #### C MP #### [facility] [address] [place] [address] Dr. Stella Mora AST [Catalytic activity/Vol] 18 U/L Normal 15-37 [facility] Comment on above: Performed By: #### C MP #### [facility] [address] [place] [address] Dr. Stella Mora Bilirubin [Mass/Vol] 1.9 mg/dL Critically high 0.2-1.0 [facility] Comment on above: Performed By: #### C MP #### [facility] [address] [place] [address] Dr. Stella Mora Calcium [Mass/Vol] 9.1 mg/dL Normal 8.5-10.1 [facility] Comment on above: Performed By: #### C MP #### [facility] [address] [place] [address] Dr. Stella Mora Chloride [Moles/Vol] 98 mmol/L Normal 98-107 [facility] Comment on above: Performed By: #### C MP #### [facility] [address] [address] [address] Stella Mora CO2 [Moles/Vol] 28.4 mmol/L Normal 21.0-32.0 [facility] Comment on above: Performed By: #### C MP #### [facility] [address] [address] [address] Stella Mora Creatinine [Mass/Vol] 0.87 mg/dL Normal 0.70-1.30 [facility] Comment on above: Performed By: #### C MP #### [facility] [address] [place] [address] Dr. Stella Mora EGFR-AF CYMRAES >60 Normal >=60 [facility] Comment on above: Performed By: #### C MP #### [facility] [address] [place] [address] Dr. Stella Mora EGFR-NON AF CYMRAES >60 Normal >=60 [facility] Comment on above: Performed By: #### C MP #### [facility] [address] [address] [address] Stella Mora Globulin (S) [Mass/Vol] 4.3 g/dL Normal [facility] Comment on above: Performed By: #### C MP #### [facility] [address] [place] [address] Dr. Stella Mora Glucose [Mass/Vol] 258 mg/dL Critically high 74-106 [facility] Comment on above: Performed By: #### C MP #### [facility] [address] [place] [address] Dr. Stella Mora Potassium [Moles/Vol] 3.9 mmol/L Normal 3.5-5.1 [facility] Comment on above: Performed By: #### C MP #### [facility] [address] [address] [address] Stella Mora Protein [Mass/Vol] 8.3 g/dL Critically high 6.4-8.2 [facility] Comment on above: Performed By: #### C MP #### [facility] [address] [place] [address] Dr. Stella Mora Sodium [Moles/Vol] 132 mmol/L Critically low 136-145 [facility] Comment on above: Performed By: #### C MP #### [facility] [address] [place] [address] Dr. Stella Mora Urea nitrogen [Mass/Vol] 15.0 mg/dL Normal 7.0-18.0 [facility] Comment on above: Performed By: #### C MP #### [facility] [address] [place] [address] Dr. Stella Mora Urea nitrogen/Creatinine [Mass ratio] 17.2 mg/mg Normal [facility] Comment on above: Performed By: #### C MP #### [facility] [address] [place] [address] Dr. Stella Mora VIT B12 AND FOLATEon 023 Cobalamin (Vitamin B12) [Mass/Vol] 688.0 pg/mL Normal 193.0-986.0 [facility] Comment on above: Performed By: #### B 12FOL #### [facility] [address] [place] [address] Dr. Stella Mora FOLATE 20.10 ng/mL Normal 8.60-58.90 [facility] Comment on above: Performed By: #### B 12FOL #### [facility] [address] [place] [address] Dr. Stella Mora XR FOOT URBANO MIN [...] by: POORNIMA RUSSELL Date: 2023-01-09 15:26 Normal [facility] Patient Letter FTMCon 2021 Patient Letter FT November 12, 2021 LAURA SONG JR [address] [place] [id number] LAURA SONG JR 1955 Dear Laura, This is a SECOND ATTEMPT to remind you that you are due for an appointment with [facility]. Please contact our office at [phone] to schedule an appointment at your earliest convenience. Thank you, [facility] Reminderson 11-12-2021 Reminders - From: Saritha Garcia To: MEAGHAN - Reminders/Recalls; Sent: 05/30/2021 10:58:45 EDT Show up: 09/03/2021 10:58:00 EDT Subject: Ambulatory Reminder Due Date/Time: 10/13/2021 10:58:00 EST Reminder/Recall 5 year colon recall salam 10/13/2021 first recall letter second recall letter Normal [facility] Patient Letter FTon 2020 Patient Letter FT September 03, 2021 LAURA SONG JR [address] [place] [phone] LAURA SONG JR 1955 Dear Laura, This is a reminder that you are due for an appointment with [facility]. Please contact our office at [phone] to schedule an appointment at your earliest convenience. Thank you, [facility] Normal [facility] Testosterone Free And Total, Adult Maleon 05-04-2019 Sex Hormone Binding Globulin 37 nmol/L Normal 11-80 [facility] Comment on above: Result Comment: REFE RENCE INTERVAL: Sex Hormone Binding Globulin Access complete set of age- and/or gender-specific reference intervals for this test in the [facility] Laboratory Test Directory ([employer]). Testosterone, Adult Male 194 ng/dL Low 300-720 [facility] Comment on above: Result Comment: REFE RENCE INTERVAL: Testosterone, Adult Male Access complete set of age- and/or gender-specific reference intervals for this test in the [facility] Laboratory Test Directory ([employer]). Testosterone, Free Calculation 32 pg/mL Low 47-244 [facility] Comment on above: Result Comment: INTE RPRETIVE [...] reference intervals for this test in the [facility] Laboratory Test Directory ([employer]). Testosterone, Percentage Free 1.6 % Normal 1.6-2.9 [facility] Comment on above: Result Comment: Perf ormed by [employer], [address] [place] [address] www.[employer], Eleazar Baker MD - Lab. Director Basic Metabolic Panelon 07-0 Anion gap [Moles/Vol] 13 mmol/L Normal 9-15 [facility] Comment on above: Performed By: #### B MP ####[facility] [facility] [place] [phone] Calcium [Mass/Vol] 8.8 mg/dL Normal 8.5-9.9 [facility] Comment on above: Performed By: #### B MP ####[facility] [place] [phone] Chloride [Moles/Vol] 102 mmol/L Normal 95-107 [facility] Comment on above: Performed By: #### B MP ####[facility] [place] [phone] CO2 [Moles/Vol] 24 mmol/L Normal 20-31 [facility] Comment on above: Performed By: #### B MP ####[facility] [facility] [place] [phone] Creatinine [Mass/Vol] 0.88 mg/dL Normal 0.70-1.20 [facility] Comment on above: Performed By: #### B MP ####[facility] [place] [phone] GFR/1.73 sq M predicted among blacks MDRD (S/P/Bld) [Vol rate/Area] mL/min/{1.73_m2} Normal >60 [facility] Comment on above: Result Comment: >60 mL/min/1.73m2 EGFR, calc. for ages 18 and older using the MDRD formula (not corrected for weight), is valid for stable renal function. Performed By: #### B MP ####[facility] [place] [phone] GFR/1.73 sq M.predicted MDRD (S/P/Bld) [Vol rate/Area] mL/min/{1.73_m2} Normal >60 [facility] Comment on above: Result Comment: >60 mL/min/1.73m2 EGFR, calc. for ages 18 and older using the MDRD formula (not corrected for weight), is valid for stable renal function. Performed By: #### B MP ####[facility] [place] [phone] Glucose [Mass/Vol] 161 mg/dL Critically high 70-99 [facility] Comment on above: Performed By: #### B MP ####[facility] [place] [phone] Potassium [Moles/Vol] 4.0 mmol/L Normal 3.4-4.9 [facility] Comment on above: Performed By: #### B MP ####[facility] [place] [phone] Sodium [Moles/Vol] 139 mmol/L Normal 135-144 [facility] Comment on above: Performed By: #### B MP ####[facility] [place] [phone] Urea nitrogen [Mass/Vol] 21 mg/dL Normal 8-23 [facility] Comment on above: Performed By: #### B MP ####[facility] [facility] [phone] Hemoglobin A1con 05-03-2019 HbA1c (Bld) [Mass fraction] 7.0 % Critically high 4.8-5.9 [facility] Comment on above: Performed By: #### A 1C ####[facility] [facility] [phone] PSA Diagnosticon 05-03-2019 PSA Diagnostic 0.68 ng/mL Normal 0.00-5.40 [facility] Comment on above: Performed By: #### P SADG ####[facility] [facility] [phone] UR Microalbumin/Creatinine R atio Randomon 05-03-2019 Microalbumin/creatin ine Ratio 124.0 mg/G Critically high 0.0-30.0 [facility] Comment on above: Performed By: #### U MACR ####[facility] [facility] [phone] UR Creatinine Random 37.1 mg/dL Normal Not Establ [facility] Comment on above: Performed By: #### U MACR ####[facility] [facility] [phone] UR Microalbumin Random 4.60 mg/dL Critically high [facility] Comment on above: Performed By: #### U MACR ####[facility] [facility] [phone] Testosterone Free And Total, Adult Maleon 02-16-2019 Sex Hormone Binding Globulin 39 nmol/L Normal 11-80 [facility] Comment on above: Result Comment: REFE RENCE INTERVAL: Sex Hormone Binding Globulin Access complete set of age- and/or gender-specific reference intervals for this test in the [employer] [facility] Test Directory ([employer]). Testosterone, Adult Male 165 ng/dL Low 300-720 [facility] Comment on above: Result Comment: REFE RENCE INTERVAL: Testosterone, Adult Male Access complete set of age- and/or gender-specific reference intervals for this test in the [employer] [facility] Test Directory ([employer]). Testosterone, Free Calculation 26 pg/mL Low 47-244 [facility] Comment on above: Result Comment: INTE RPRETIVE [...] reference intervals for this test in the [employer] [facility] Test Directory ([employer]). Testosterone, Percentage Free 1.6 % Normal 1.6-2.9 [facility] Comment on above: Result Comment: Perf ormed by [employer], [address] [place] [id number] www.[employer], Eleazar Baker MD - Lab. Director UR Microalbumin/Creatinine R atio Randomon 02-16-2019 Microalbumin/creatin ine Ratio 126.0 mg/G Critically high 0.0-30.0 [facility] Comment on above: Performed By: #### U MACR ####[facility] [place] [phone] UR Creatinine Random 48.4 mg/dL Normal Not [facility] Comment on above: Performed By: #### U MACR ####[facility] [place] [phone] UR Microalbumin Random 6.10 mg/dL Critically high [facility] Comment on above: Performed By: #### U MACR ####[facility] [place] [phone] Basic Metabolic Panelon 02-01 Anion gap [Moles/Vol] 12 mmol/L Normal 9-15 [facility] Comment on above: Result Comment: Effe ctive: 12/10/2018 New reference range for this analyte has been established. Performed By: #### B MP #### [facility] [address] [place] [address] Calcium [Mass/Vol] 9.0 mg/dL Normal 8.5-9.9 [facility] Comment on above: Result Comment: Effe ctive: 12/10/2018 New reference range for this analyte has been established. Performed By: #### B MP #### [facility] [address] [place] [address] Chloride [Moles/Vol] 100 mmol/L Normal 95-107 [facility] Comment on above: Result Comment: Effe ctive: 12/10/2018 New reference range for this analyte has been established. Performed By: #### B MP #### [facility] [address] [place] [address] CO2 [Moles/Vol] 27 mmol/L Normal 20-31 [facility] Comment on above: Result Comment: Effe ctive: 12/10/2018 New reference range for this analyte has been established. Performed By: #### B MP #### [facility] [address] [place] [address] Creatinine [Mass/Vol] 0.82 mg/dL Normal 0.70-1.20 [facility] Comment on above: Performed By: #### B MP #### [facility] [address] [place] [address] GFR/1.73 sq M predicted among blacks MDRD (S/P/Bld) [Vol rate/Area] mL/min/{1.73_m2} Normal >60 [facility] Comment on above: Result Comment: >60 mL/min/1.73m2 EGFR, calc. for ages 18 and older using the MDRD formula (not corrected for weight), is valid for stable renal function. Performed By: #### B MP #### [facility] [address] [place] [address] GFR/1.73 sq M.predicted MDRD (S/P/Bld) [Vol rate/Area] mL/min/{1.73_m2} Normal >60 [facility] Comment on above: Result Comment: >60 mL/min/1.73m2 EGFR, calc. for ages 18 and older using the MDRD formula (not corrected for weight), is valid for stable renal function. Performed By: #### B MP #### [facility] [address] [place] [address] Glucose [Mass/Vol] 95 mg/dL Normal 70-99 [facility] Comment on above: Result Comment: Effe ctive: 12/10/2018 New reference range for this analyte has been established. Performed By: #### B MP #### [facility] [address] [place] [address] Potassium [Moles/Vol] 4.0 mmol/L Normal 3.4-4.9 [facility] Comment on above: Result Comment: Effe ctive: 12/10/2018 New reference range for this analyte has been established. Performed By: #### B MP #### [facility] [address] [place] [address] Sodium [Moles/Vol] 139 mmol/L Normal 135-144 [facility] Comment on above: Result Comment: Effe ctive: 12/10/2018 New reference range for this analyte has been established. Performed By: #### B MP #### [facility] [address] [place] [address] Urea nitrogen [Mass/Vol] 14 mg/dL Normal 8-23 [facility] Comment on above: Performed By: #### B MP #### [facility] [address] [place] [address] Hemoglobin A1con 02-15-2019 HbA1c (Bld) [Mass fraction] 6.9 % Critically high 4.8-5.9 [facility] Comment on above: Performed By: #### A 1C #### [facility] [address] [place] [address] PSA Diagnosticon 02-15-2019 PSA Diagnostic 0.70 ng/mL Normal 0.00-5.40 [facility] Comment on above: Performed By: #### P SADG #### [facility] [address] [place] [address] Testosterone Free And Total, Adult Maleon 11-19-2018 Sex Hormone Binding Globulin 38 nmol/L Normal 11-80 [facility] Comment on above: Result Comment: REFE RENCE INTERVAL: Sex Hormone Binding Globulin Access complete set of age- and/or gender-specific reference intervals for this test in the [employer] [facility] [facility] Test Directory ([employer]). Testosterone, Adult Male 560 ng/dL Normal 300-720 [facility] Comment on above: Result Comment: REFE RENCE INTERVAL: Testosterone, Adult Male Access complete set of age- and/or gender-specific reference intervals for this test in the [employer] [facility] Test Directory ([employer]). Testosterone, Free Calculation 100 pg/mL Normal 47-244 [facility] Comment on above: Result Comment: INTE RPRETIVE [...] reference intervals for this test in the [employer] [facility] Test Directory ([employer]). Testosterone, Percentage Free 1.8 % Normal 1.6-2.9 [facility] Comment on above: Result Comment: Perf ormed by [employer], [address] [place] [address] www.[employer], Eleazar Baker MD - Lab. Director Basic Metabolic Panelon 11-03 Anion gap [Moles/Vol] 11 mmol/L Normal 7-13 [facility] Calcium [Mass/Vol] 8.8 mg/dL Normal 8.6-10.2 [facility] Chloride [Moles/Vol] 101 mmol/L Normal 98-107 [facility] CO2 [Moles/Vol] 26 mmol/L Normal 22-29 [facility] Creatinine [Mass/Vol] 1.13 mg/dL Normal 0.70-1.20 [facility] GFR/1.73 sq M predicted among blacks MDRD (S/P/Bld) [Vol rate/Area] mL/min/{1.73_m2} Normal >60 [facility] Comment on above: Result Comment: >60 mL/min/1.73m2 EGFR, calc. for ages 18 and older using the MDRD formula (not corrected for weight), is valid for stable renal function. GFR/1.73 sq M.predicted MDRD (S/P/Bld) [Vol rate/Area] mL/min/{1.73_m2} Normal >60 [facility] Comment on above: Result Comment: >60 mL/min/1.73m2 EGFR, calc. for ages 18 and older using the MDRD formula (not corrected for weight), is valid for stable renal function. Glucose [Mass/Vol] 142 mg/dL Critically high 74-109 [facility] Potassium [Moles/Vol] 4.1 mmol/L Normal 3.5-5.1 [facility] Sodium [Moles/Vol] 138 mmol/L Normal 132-144 [facility] Urea nitrogen [Mass/Vol] 14 mg/dL Normal 8-23 [facility] CBC With Platelet No Differe ntialon 11-17-2018 Erythrocyte distribution width (RBC) [Ratio] 12.6 % Normal 11.5-14.5 [facility] Hematocrit (Bld) [Volume fraction] 47.7 % Normal 42.0-52.0 [facility] Hemoglobin (Bld) [Mass/Vol] 17.0 g/dL Normal 14.0-18.0 [facility] MCH (RBC) [Entitic mass] 32.8 pg Critically high 27.0-31.3 [facility] MCHC (RBC) [Mass/Vol] 35.7 % Normal 33.0-37.0 [facility] MCV (RBC) [Entitic vol] 91.9 fL Normal 80.0-100.0 [facility] Platelets (Bld) [#/Vol] 178 10*3/uL Normal 130-400 [facility] RBC (Bld) [#/Vol] 5.19 10*6/uL Normal 4.70-6.10 [facility] WBC (Bld) [#/Vol] 6.4 10*3/uL Normal 4.8-10.8 [facility] Hemoglobin A1con 11-17-2018 HbA1c (Bld) [Mass fraction] 7.5 % Critically high 4.8-5.9 [facility] Testosterone Free And Total, Adult Maleon 08-19-2018 Sex Hormone Binding Globulin 45 nmol/L Normal 11-80 [facility] Comment on above: Result Comment: REFE RENCE INTERVAL: Sex Hormone Binding Globulin Access complete set of age- and/or gender-specific reference intervals for this test in the [employer] [facility] [facility] Test Directory ([employer]). Testosterone, Adult Male >1500 Critically high 300-720 [facility] Comment on above: Result Comment: REFE RENCE INTERVAL: Testosterone, Adult Male Access complete set of age- and/or gender-specific reference intervals for this test in the [employer] [facility] [facility] Test Directory ([employer]). Testosterone, Free Calculation See Note Normal 47-244 [facility] Comment on above: Result Comment: The Free [...] reference intervals for this test in the [employer] [facility] [facility] Test Directory ([employer]). Testosterone, Percentage Free See Note Normal 1.6-2.9 [facility] Comment on above: Result Comment: The percent Free Testosterone result is greater than 2.0 percent. Performed by [employer], [address] [place] [id number] [employer], Eleazar Baker MD - Lab. Director Basic Metabolic Panelon 08-03 Anion gap [Moles/Vol] 16 mmol/L Critically high 7-13 [facility] Calcium [Mass/Vol] 8.9 mg/dL Normal 8.6-10.2 [facility] Chloride [Moles/Vol] 100 mmol/L Normal 98-107 [facility] CO2 [Moles/Vol] 24 mmol/L Normal 22-29 [facility] Creatinine [Mass/Vol] 0.89 mg/dL Normal 0.70-1.20 [facility] GFR/1.73 sq M predicted among blacks MDRD (S/P/Bld) [Vol rate/Area] mL/min/{1.73_m2} Normal >60 [facility] Comment on above: Result Comment: >60 mL/min/1.73m2 EGFR, calc. for ages 18 and older using the MDRD formula (not corrected for weight), is valid for stable renal function. GFR/1.73 sq M.predicted MDRD (S/P/Bld) [Vol rate/Area] mL/min/{1.73_m2} Normal >60 [facility] Comment on above: Result Comment: >60 mL/min/1.73m2 EGFR, calc. for ages 18 and older using the MDRD formula (not corrected for weight), is valid for stable renal function. Glucose [Mass/Vol] 82 mg/dL Normal 74-109 [facility] Potassium [Moles/Vol] 4.0 mmol/L Normal 3.5-5.1 [facility] Sodium [Moles/Vol] 140 mmol/L Normal 132-144 [facility] Urea nitrogen [Mass/Vol] 10 mg/dL Normal 8-23 [facility] Hemoglobin A1con 08-17-2018 HbA1c (Bld) [Mass fraction] 6.9 % Critically high 4.8-5.9 [facility] Vital Signs Date Time Vital Sign Value Performing Clinician Hollis stovall 11-29-2024 13:11-0500 Body mass index (BMI) [Ratio] 28.55 kg/m2 Alla Kiran CUTTING DEPARTMENT SUPERVISOR Work Phone: [facility] 11-29-2024 13:11-0500 Body weight 90.27 kg Alla Crainoll CUTTING DEPARTMENT SUPERVISOR Work Phone: [facility] 11-29-2024 13:11-0500 Diastolic blood pressure 84 mm[Hg] Alla Kiran CUTTING DEPARTMENT SUPERVISOR Work Phone: [facility] 11-29-2024 13:11-0500 Heart rate 76 /min Alla Crainoll CUTTING DEPARTMENT SUPERVISOR Work Phone: [facility] 11-29-2024 13:11-0500 Systolic blood pressure 132 mm[Hg] Alla Kiran CUTTING DEPARTMENT SUPERVISOR Work Phone: [facility] 09-01-2024 14:03-0400 Body height 177.8 cm Kaylyn Kelly CUTTING DEPARTMENT SUPERVISOR Work Phone: [facility] 09-01-2024 14:03-0400 Body mass index (BMI) [Ratio] 28.93 kg/m2 Kaylyn Kelly CUTTING DEPARTMENT SUPERVISOR Work Phone: [facility] 09-01-2024 14:03-0400 Body temperature 96.3 [degF] Kaylyn Kelly CUTTING DEPARTMENT SUPERVISOR Work Phone: [facility] 09-01-2024 14:03-0400 Body weight 91.44 kg Kaylyn Kelly CUTTING DEPARTMENT SUPERVISOR Work Phone: [facility] 09-01-2024 14:03-0400 Diastolic blood pressure 74 mm[Hg] Kaylyn Kelly CUTTING DEPARTMENT SUPERVISOR Work Phone: [facility] 09-01-2024 14:03-0400 Heart rate 80 /min Kaylyn Kelly CUTTING DEPARTMENT SUPERVISOR Work Phone: [facility] 09-01-2024 14:03-0400 Respiratory rate 16 /min Kaylyn Kelly CUTTING DEPARTMENT SUPERVISOR Work Phone: [facility] 09-01-2024 14:03-0400 Systolic blood pressure 130 mm[Hg] Kaylyn Kelly CUTTING DEPARTMENT SUPERVISOR Work Phone: [facility] 08-26-2024 11:27-0400 Body height 177.8 cm Earnest Figueroa MD Work Phone: [facility] 08-26-2024 11:27-0400 Body mass index (BMI) [Ratio] 28.27 kg/m2 Earnest Figueroa MD Work Phone: [facility] 08-26-2024 11:27-0400 Body weight 89.36 kg Earnest Figueroa MD Work Phone: [facility] 08-26-2024 11:27-0400 Heart rate 73 /min Earnest Figueroa MD Work Phone: [facility] Comment on above: O2 SAT 99 08-26-2024 11:27-0400 Respiratory rate 16 /min Earnest Figueroa MD Work Phone: [facility] 08-16-2024 12:53-0400 Body height 177.8 cm Alla Santana CUTTING DEPARTMENT SUPERVISOR Work Phone: [facility] 08-16-2024 12:53-0400 Body mass index (BMI) [Ratio] 28.81 kg/m2 Alla Santana CUTTING DEPARTMENT SUPERVISOR Work Phone: [facility] 08-16-2024 12:53-0400 Body weight 91.08 kg Alla Santana CUTTING DEPARTMENT SUPERVISOR Work Phone: [facility] 08-16-2024 12:53-0400 Diastolic blood pressure 86 mm[Hg] Alla Santana CUTTING DEPARTMENT SUPERVISOR Work Phone: [facility] 08-16-2024 12:53-0400 Heart rate 82 /min Alla Santana CUTTING DEPARTMENT SUPERVISOR Work Phone: [facility] 08-16-2024 12:53-0400 SaO2% (BldA) [Mass fraction] 97 % Alla Santana CUTTING DEPARTMENT SUPERVISOR Work Phone: [facility] 08-16-2024 12:53-0400 Systolic blood pressure 142 mm[Hg] Alla Santana CUTTING DEPARTMENT SUPERVISOR Work Phone: [facility] Healthcare Encounters Encounter Date Encounter Type Care Provider Facility Start: 12-01-2024 End: 12-01-2024 Orders Only Kaylyn Kelly CUTTING DEPARTMENT SUPERVISOR Work Phone: [facility] Comment on above: Elevated liver enzym es (Primary Dx) Start: 11-29-2024 End: 11-29-2024 Bamboo flowsheet Alla Santana CUTTING DEPARTMENT SUPERVISOR Work Phone: [facility] Start: 11-29-2024 End: 11-29-2024 Bamboo flowsheet Alla Santana CUTTING DEPARTMENT SUPERVISOR Work Phone: [facility] Start: 11-29-2024 End: 11-29-2024 Office outpatient visit 15 minutes Alla Santana CUTTING DEPARTMENT SUPERVISOR Work Phone: [facility] Comment on above: Polyneuropathy (Prim grant Dx); Paresthesia Start: 11-29-2024 End: 11-29-2024 ambulatory ALLA SANTANA Not Available Start: 11-26-2024 End: 11-26-2024 Clinisync Result Encounter Kaylyn Hallzpatrick CUTTING DEPARTMENT SUPERVISOR Work Phone: [facility] Unsolicited Start: 11-26-2024 End: 11-26-2024 Clinisync Result Encounter Kaylyn Kelly CUTTING DEPARTMENT SUPERVISOR Work Phone: [facility] Unsolicited Start: 09-15-2024 End: 09-15-2024 Patient encounter procedure Kaylyn Kelly CUTTING DEPARTMENT SUPERVISOR-C Work Phone: [facility] [place] Work Phone: Start: 09-15-2024 End: 09-15-2024 ambulatory Kaylyn Vanessa LongKelly CUTTING DEPARTMENT SUPERVISOR-C Work Phone: [facility] Work Phone: Start: 09-01-2024 End: 09-01-2024 Bamboo flowsheet Kaylyn Kelly CUTTING DEPARTMENT SUPERVISOR Work Phone: [facility] Start: 09-01-2024 End: 09-01-2024 Bamboo flowsheet Kaylyn Kelly CUTTING DEPARTMENT SUPERVISOR Work Phone: [facility] Start: 09-01-2024 End: 09-01-2024 Office outpatient visit 15 minutes Kaylyn Kelly CUTTING DEPARTMENT SUPERVISOR Work Phone: [facility] Comment on above: Type 2 diabetes edmar itus with diabetic polyneuropathy, with long-term current use of insulin (CMS/HCC) (Primary Dx); Type 2 diabetes mellitus with diabetic polyneuropathy, without long-term current use of insulin (CMS/HCC); Diabetic polyneuropathy associated with type 2 diabetes mellitus (CMS/HCC); Other hyperlipidemia (CMS/HCC) Start: 09-01-2024 End: 09-01-2024 ambulatory KAYLYN LONGTRICK Not Available Start: 08-31-2024 End: 08-31-2024 Orders Only Kaylyn Kelly CUTTING DEPARTMENT SUPERVISOR Work Phone: [facility] Comment on above: Type 2 diabetes edmar itus with diabetic polyneuropathy, with long-term current use of insulin ([facility]) Start: 08-26-2024 End: 08-26-2024 Bamboo flowsheet Earnest Figueroa MD Work Phone: [facility] Start: 08-26-2024 End: 08-26-2024 Bamboo flowsheet Earnest Figueroa MD Work Phone: [facility] Start: 08-26-2024 End: 08-26-2024 ambulatory EARNEST FIGUEROA Not Available Start: 08-26-2024 End: 08-26-2024 Office outpatient visit 15 minutes Earnest Figueroa MD Work Phone: 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 Comment on above: Type 2 diabetes edmar itus with diabetic polyneuropathy, without long-term current use of insulin ([facility]) Start: 08-23-2024 End: 08-23-2024 Clinisync Result Encounter Generic External Data Provider [facility] Unsolicited Start: 08-23-2024 End: 08-23-2024 Clinisync Result Encounter Generic External Data Provider [facility] Unsolicited Start: 08-23-2024 End: 08-26-2024 Refill Kaylyn Kelly CUTTING DEPARTMENT SUPERVISOR Work Phone: [facility] Comment on above: Type 2 diabetes edmar itus without complications ([facility]); Type 2 diabetes mellitus with diabetic polyneuropathy, without long-term current use of insulin ([facility]) Start: 08-16-2024 End: 08-16-2024 Bamboo flowsheet Alla Santana CUTTING DEPARTMENT SUPERVISOR Work Phone: [facility] Start: 08-16-2024 End: 08-16-2024 Bamboo flowsheet Alla Santana CUTTING DEPARTMENT SUPERVISOR Work Phone: [facility] Start: 08-16-2024 End: 08-16-2024 Office outpatient visit 15 minutes Alla Santana CUTTING DEPARTMENT SUPERVISOR Work Phone: [facility] Comment on above: Polyneuropathy (Prim grant Dx); Paresthesia Start: 08-16-2024 End: 08-16-2024 ambulatory ALLA SANTANA Not Available Start: 06-15-2024 End: 06-15-2024 ambulatory ALLA SANTANA Not Available Start: 06-01-2024 End: 06-01-2024 ambulatory BOWEN FAWCATALINAD Not Available Start: 04-28-2024 End: 04-28-2024 ambulatory ALLA SANTANA Not Available Start: 04-21-2024 End: 04-21-2024 ambulatory BOWEN FAWWAD Not Available Start: 04-01-2024 End: 04-01-2024 ambulatory ALISSA MURO Not Available Start: 02-19-2024 End: 02-19-2024 ambulatory BOWEN FAWWAD Not Available Start: 10-02-2023 Patient encounter procedure Alla Santana CUTTING DEPARTMENT SUPERVISOR Work Phone: [facility] Start: 03-17-2023 End: 03-18-2023 ambulatory BOWEN H FAWWAD Facility:[facility] Start: 03-07-2023 End: 03-08-2023 ambulatory BOWEN H FAWWAD Facility:[facility] Start: 02-03-2023 End: 02-04-2023 ambulatory LAYNE CROFT Facility:[facility] Start: 01-09-2023 End: 01-10-[address] POORNIMA RUSSELL Facility:[facility] Procedures Date Procedure Procedure Detail Performing Clinician Start: 11-26-2024 ALL CBC WITH AUTO DIFF Kaylyn Kelly CUTTING DEPARTMENT SUPERVISOR Work Phone: Start: 08-23-2024 ALL BASIC METABOLIC PANEL Generic External Data Provider Start: 10-13-2016 Colonoscopy Alla Breann ritter CUTTING DEPARTMENT SUPERVISOR Work Phone: Plan of Treatment Date Care Activity Detail Author Start: 10-13-2026 Screening for malignant neoplasm of colon [facility] Start: 05-02-2025 Influenza vaccination Influenza Vaccine (#1) [facility] Comment on above: Postponed from 07/04/2024 (Patient Refus ed) Start: 01-01-2025 Glaucoma screening Diabetes: Retinopathy Screening [facility] Start: 12-02-2024 End: 12-02-2024 Patient encounter procedure 12/02/2024 2:30 PM EST Office Visit [facility] [address] [place] [address] Kaylyn Kelly NP [address] [place] [address] [facility] Start: 12-01-2024 End: 12-01-2025 Comprehensive metabolic 2000 panel - Serum or Plasma Comprehensive metabolic panel Lab Routine Elevated liver enzymes Expected: 12/01/2024 (Approximate), Expires: 12/01/2025 [facility] Comment on above: Expected: 12/01/2024 (Approximate), Expi res: 12/01/2025 Start: 12-01-2024 End: 12-01-2025 Hepatitis 1996 panel - Serum Hepatitis panel, acute Lab Routine Elevated liver enzymes Expected: 12/01/2024 (Approximate), Expires: 12/01/2025 [facility] Work Phone: Comment on above: Expected: 12/01/2024 (Approximate), Expi res: 12/01/2025 Start: 12-01-2024 End: 12-01-2025 US Abdomen limited US RUQ Imaging Routine Elevated liver enzymes Expected: 12/01/2024, Expires: 12/01/2025 [facility] Comment on above: Expected: 12/01/2024, Expires: Start: 11-29-2024 End: 11-29-2024 Patient encounter procedure [facility] Comment on above: Polyneuropathy (Primary Dx); Paresthesia Start: 11-06-2024 Hemoglobin A1c measurement Diabetes: Hemoglobin A1C [facility] Start: 10-02-2024 Medicare Annual Wellness (AWV) Medicare Annual Wellness (AWV) [facility] Start: 10-02-2024 Pneumococcal Vaccine: 65+ Years (1 of 2 - PCV) Pneumococcal Vaccine: 65+ Years (1 of 2 - PCV) [facility] Comment on above: Postponed from 1963 (Patient Refus ed) Start: 09-15-2024 Pulse volume recorder pneumoplethysmography US arterial pvr rest [facility] Start: 09-01-2024 End: 09-01-2025 CBC W Auto Differential panel - Blood CBC and differential Lab Routine Type 2 diabetes mellitus with diabetic polyneuropathy, without long-term current use of insulin (CMS/FORMERLY [facility]) Expected: 09/01/2024 (Approximate), Expires: 09/01/2025 [facility] Comment on above: Expected: 09/01/2024 (Approximate), Expi res: 09/01/2025 Start: 09-01-2024 End: 09-01-2025 Comprehensive metabolic 2000 panel - Serum or Plasma Comprehensive metabolic panel Lab Routine Type 2 diabetes mellitus with diabetic polyneuropathy, without long-term current use of insulin (CMS/HCC) Expected: 09/01/2024 (Approximate), Expires: 09/01/2025 [facility] Comment on above: Expected: 09/01/2024 (Approximate), Expi res: 09/01/2025 Start: 09-01-2024 End: 09-01-2025 Hemoglobin A1c/Hemoglobin.total in Blood Hemoglobin A1c Lab Routine Type 2 diabetes mellitus with diabetic polyneuropathy, without long-term current use of insulin (CMS/HCC) Expected: 09/01/2024 (Approximate), Expires: 09/01/2025 [facility] Comment on above: Expected: 09/01/2024 (Approximate), Expi res: 09/01/2025 Start: 09-01-2024 End: 09-01-2024 Patient encounter procedure [facility] Comment on above: Arrived Start: 08-26-2024 End: 08-26-2024 Patient encounter procedure 08/26/2024 11:20 AM EDT Office Visit [facility] [address] [place] [address] Earnest Figueroa MD [address] [place] [address] [facility] Start: 08-16-2024 End: 08-16-2024 Patient encounter procedure 08/16/2024 1:00 PM EDT Office Visit [facility] [address] [place] [phone] Alla Santana NP [address] [place] [address] Polyneuropathy (Primary Dx); Paresthesia [facility] [address] Comment on above: Polyneuropathy (Primary Dx); Paresthesia Start: 07-26-2024 Urine screening for protein Diabetes: Urine Protein Screening [facility] Start: 07-04-2024 Influenza vaccination Influenza Vaccine (#1) [facility] Start: 1961 Pneumococcal Vaccine: 65+ Years (1 of 2 - PCV) Pneumococcal Vaccine: 65+ Years (1 of 2 - PCV) [facility] Start: 1955 Screening for malignant neoplasm of colon [facility] Microalbumin/Creatin ine panel in random Urine Microalbumin / creatinine urine ratio Lab Routine Type 2 diabetes mellitus with diabetic polyneuropathy, without long-term current use of insulin ([facility]) Ordered: 09/01/2024 [facility] Work Phone: Comment on above: Ordered: 09/01/2024 Immunizations Immunization Date Immunization Notes Care Provider Fa cili 10-13-2021 influenza, injectabl e, quadrivalent, preservative free Alla Santana [employer]TING [employer] Work Phone: [facility] 10-13-2021 influenza virus vacc ine, unspecified formulation Alla Santana [employer]TING [employer]PARTMENT SUPER[employer]OR Work Phone: [facility] 08-20-2016 influenza, injectabl e, quadrivalent, contains preservative Alla Santana [employer]TING DEPARTMENT SUPERVISOR Work Phone: [facility] Payers Date Payer Category Payer Medicare (Managed Care) [facility] [id number] 2024 Medicare [id number] 2024 Self-pay 2023 Medicare MEDICARE [id number] 2023 Medicare [id number] 2023 [facility] [id number] 2023 Unknown [id number] 1955 Unknown [id number] 2.16.840.1.086720.3.579. 2.593 1957 Unknown [id number] 2.16.840.1.636512.3.579. 2.593 1957 Unknown [id number] 2.16.840.1.259628.3.579. 2.593 1957 Unknown [id number] 2.16.840.1.985780.3.579. 2.593 1957 Unknown [id number] 2.16.840.1.484747.3.579. 2.1259 1957 Unknown [id number] 2.16.840.1.308905.3.579. 2.1259 1957 Unknown [id number] 2.16.840.1.100370.3.579. 2.1259 1957 Unknown [id number] 2.16.840.1.064316.3.579. 2.1259 1957 Unknown [id number] 2.16.840.1.989363.3.579. 2.1259 1957 Unknown [id number] 2.16.840.1.284040.3.579. 2.1259 1957 Unknown [id number] 2.16.840.1.615188.3.579. 2.1259 1957 Unknown [id number] 2.16.840.1.894965.3.579. 2.1259 1957 Unknown [id number] 2.16.840.1.595472.3.579. 2.1259 1957 Unknown [id number] 2.16.840.1.200090.3.579. 2.1259 Unknown [id number] Unknown [id number] 2.16.840.1.450422.3.579. 2.531 Social History Date Type Detail Facility Start: 04-21-2024 Tobacco smoking status [facility] Ex-smoker [facility] History of tobacco use Current smoker [facility] History of tobacco use Cigarette Smoker [facility] Start: 04-21-2024 Tobacco use and exposure Smokeless tobacco non-user [facility] Start: 2024 End: 11-29-2024 Alcoholic beverage intake Lifetime non-drinker (finding) [facility] Start: 06-01-2024 End: 06-15-2024 History of Social function [facility] Start: 06-01-2024 End: 06-15-2024 Tobacco use panel [facility] Start: 1955 Sex assigned at Not on file [facility] Tobacco smoking status [facility] Unknown if ever smoked [facility] Work Phone: Start: 09-16-2024 Sex Male (finding) [facility] Start: 1955 Sex Assigned At Male F [facility] NEGATED: Highlighted rowStart: NINF History of tobacco use Passive smoker [facility] Medical Equipment Procedure Code Equipment Code Equipment Origin al Text Equipment Identifier Dates Inject 1 each un charlene the skin Daily Use as instructed [id number] Start: 01-01-2024 End: 12-31-2024 Clinical Notes 08-16-2024 to 11-29-2024 Alla Santana, RONNY - 11/29/2024 1:20 PM Edwina Kelly, RONNY - 09/03/2024 7:53 AM Carissa Kelly, RONNY - 09/03/2024 7:53 AM Carissa Kelly, RONNY - 09/01/2024 2:00 PM EDT Note Date & Type Note Facility 11-29-2024 History of Present illness Narrative Images from the original note were not included. Chief Complaint Patient presents with Numbness Tingling Subjective Laura Medina is a 69 y.o. male. History of Present Illness The patient presents today for a follow-up appointment for sensory disturbance in the bilateral feet. He had a lower extremity arterial ultrasound (PVR) completed for review. This was ordered by Joe Dowell MD, in vascular surgery. The patient states he has been doing well recently. He continues to experience numbness in the bilateral feet (1st and 5th digits only). This is intermittent and does not radiate. He denies any apparent aggravating or provoking factors and states his symptoms seem to occur randomly. He admits it can be slightly bothersome at times but is, overall, tolerable. The patient also reports transient, sharp pains in the bilateral feet. These occur 1-2 times per week. He takes Lyrica 200 mg twice a day and believes this provides benefit. He denies any significant pain in the back, buttock, or legs. He denies numbness or paresthesias proximal to the feet. He denies saddle anesthesia, worsening balance/weakness, or bowel or bladder dysfunction. He denies falls. He denies any new concerns. Review of Systems Constitutional: Negative for appetite [...] suicidal ideas. The patient is not nervous/anxious. Home Medication List atorvastatin 20 MG tablet; Commonly known as: Lipitor dorzolamide-timolol 2-0.5 % ophthalmic solution; Commonly known as: Cosopt EYE DROPS OP FreeStyle Nakia 2 Valencia device FreeStyle Nakia 2 Sensor misc glipiZIDE [...] clavulanate, Empagliflozin-linagliptin, and Metformin and related Vitals: 11/29/24 1311 BP: 132/84 Pulse: 76 Body mass index is 28.55 kg/m . weight: 199 lb Neurologic exam: Mental status and general appearance: [...] wrist extensors , wrist flexor , and medical assistant cardiology strength 5/5. LUE strength deltoid , biceps , triceps , wrist extensors , wrist flexor , and medical assistant cardiology strength 5/5. RLE strength iliopsoas, quadriceps, tibialis anterior, and plantar flexion strength 5/5. LLE strength iliopsoas, quadriceps, tibialis anterior, and plantar flexion strength 5/5. Tone and bulk are normal. Sensory: Sensation is intact to light touch throughout all four extremities. Sensation is intact to temperature in all extremities. Reduced in the distal lower extremities. Vibratory sensation is reduced in the distal aspect of the bilateral lower extremities. Reflexes: RUE biceps reflex 1+ , brachioradialis reflex 0. LUE biceps reflex 0 , brachioradialis reflex 0. RLE knee reflex 0. LLE knee reflex 0. Coordination: Jjmdye-zj-oiki testing normal. Rapid alternating movements are normal. Gait: Wide based. Appears slightly antalgic. Review and summary of old records: Lower extremity segmental arterial ultrasound, PVR at [facility] on 09/15/2024: No hemodynamically significant peripheral vascular occlusive disease at rest in either lower extremity. Hemoglobin A1C on 05/19/24: 6.4%. TSH on [...] reports uncomfortable paresthesias and numbness in the bilateral feet intermittently. He has no focal weakness on clinical exam. I believe the patient's neuropathy is likely secondary to history of poorly controlled diabetes mellitus type II, and sensory decrements in the distal lower extremities are likely contributing to his mild imbalance. He is prescribed Lyrica 200 mg twice a day (reduced from 200 mg PO TID due to weight gain) which has provided benefit for neuropathic pain and paresthesias. Duloxetine was helpful, however, the patient discontinued this due to reports of reduced motivation while taking the medication. PLAN: - I informed the patient that I believe diabetes is most likely causative for his neuropathy, however, I cannot definitively rule out other possible causes at this time. I recommended lab work (vitamin B12, vitamin B6, TSH, serum immunofixation and protein electrophoresis, OLE) to evaluate for other potential causes of polyneuropathy. The patient declined. He understands that, without this work up, underlying pathology could be missed, and this could result in worsening neuropathy, sensory disturbance, and/or weakness. He states he may inquire about completing this work up via his PCP - Aubrie Bass (managed by outside provider) - I discussed pharmacologic treatment options for neuropathic pain with the patient including oral medications and topical capsaicin or lidocaine. The patient does not wish to try any new medication for his symptoms at this time, as he states they are tolerable - We discussed the association between diabetes and neuropathy. Follow up closely with primary care provider for adequate blood glucose control - Fall prevention measures Paresthesia The patient has numbness and paresthesias in the distal bilateral lower extremities which is likely related to polyneuropathy as detailed above. However, he interestingly mentions that sildenafil will temporarily improve his paresthesias. He has been referred to vascular surgery to evaluate for a potential vascular issue contributing to his symptoms. Lower extremity PVR on 09/15/24 identified no hemodynamically significant peripheral vascular occlusive disease at rest in either lower extremity. PLAN: - Follow up with vascular surgery per their recommendations for further evaluation and monitoring - Physical therapy and consideration of MRI of the lumbar spine have been recommended to help rule out a radicular component to the patient's symptoms. The patient has declined this Diagnosis and treatment options discussed in detail. All questions answered. The patient verbalizes understanding and is agreeable to the plan. Discussion in layman's terms. Follow up in the office within 3 months; sooner if needed for new or worsening symptoms. Alla Santana NP [facility] Advanced Neurology documented in this encounter [facility] 09-16-2024 Radiology Diagnostic study note [place] [address] Ultrasound Report Signed Patient: Laura Song JR MR#: [id number] : 1955 Acct:[id number] Age/Sex: 69 / M ADM Date: 4 Loc: Room: Type: [facility] Attending Dr: Joe Dowell MD Ordering Provider: Joe Dowell MD Date of Service: 09/15/24 US/US arterial pvr rest LE: I70.213 - Atherosclerosisof [place] arteries of extremiti... Copies to: Joe Dowell [...] Joe Dowell M.D.09/16/2024 8:49 AM Dictation Location: [place] [address] Tech: Nancy Yarbrough Transcribed By: TRICIA 09/16/24848 Dictated By: Joe Dowell MD 09/16/2448 Signed By: 09/16/2449 [facility] Work Phone: 09-03-2024 History of Present illness Narrative Associated Problem(s): Other hyperlipidemia (CMS/HCC) Currently taking Atorvastatin 20mg Denies any myalgias. Continue current regimen. Associated Problem(s): Type 2 diabetes mellitus with diabetic polyneuropathy, with long-term current use of insulin (CMS/HCC) Most recent labs: A1C 6.4% Has been [...] MODERATE RISK >11.0 HIGH RISK Resulting [facility]: Most recent labs: A1C6.4% Has been [...] with long-term current use of insulin (CMS/HCC) - Primary Most recent labs: A1C 6.4% [...] polyneuropathy, without long-term current use of insulin ([facility]/HCC) Relevant Medications Continuous Glucose Sensor (FreeStyle Nakia 2 Sensor) misc pregabalin (Lyrica) 200 MG capsule glipiZIDE (Glucotrol) 10 MG tablet Other Relevant Orders Microalbumin / creatinine urine ratio Hemoglobin A1c Comprehensive metabolic panel CBC and differential documented in this encounter [facility] 09-01-2024 Instructions Kaylyn Kelly NP - 09/01/2024 [...] and simple sugars. documented in this encounter [facility] 08-26-2024 History of Present illness Narrative Laura [...] Administer into affected eye(s) Continuous Blood Gluc Press Operator Heavy Duty (FreeStyle Nakia 2 Valencia) device No dose, route, or frequency recorded. [...] fail to improve. documented in this encounter [facility] 08-16-2024 History of Present illness Narrative Images [...] Cosopt EYE DROPS OP FreeStyle Nakia 2 Valencia device FreeStyle Nakia 2 Sensor misc glipiZIDE [...] wrist extensors , wrist flexor , and medical assistant cardiology strength 5/5. LUE strength deltoid , biceps , triceps , wrist extensors , wrist flexor , and medical assistant cardiology strength 5/5. RLE strength iliopsoas, quadriceps, tibialis [...] reflex 0. LLE Knee reflex 0. Coordination: Zikafx-op-eaor testing normal. Rapid alternating movements are normal. [...] new or worsening symptoms. Alla Santana NP [facility] Advanced Neurology documented in this encounter [facility] 08-16-2024 Instructions Alla Santana NP - 08/16/2024 1:00 PM EDT - Stop duloxetine documented in this encounter [facility] Evaluation note Diagnosis Type 2 diabetes mellitus with diabetic polyneuropathy, without long-term current use of insulin ([facility]/HCC)- Primary Screening for hyperlipidemia Screening for lipoid disorders Annual physical exam Routine general medical examination at a [facility] Diabetic polyneuropathy associated with type 2 diabetes mellitus ([facility]/HCC) Type 2 diabetes mellitus with diabetic polyneuropathy, [...] of skin sensation documented in this encounter [facility] HealthcareEvaluation note* Diagnosis Type 2 diabetes mellitus with diabetic polyneuropathy, without long-term current use of insulin (CMS/HCC)- Primary Screening for hyperlipidemia Screening for lipoid disorders Annual physical exam Routine general medical examination at a [facility] Diabetic polyneuropathy associated with type 2 diabetes [...] of insulin (CMS/HCC) documented in this encounter [facility] HealthcareEvaluation note* Diagnosis Type 2 diabetes mellitus with diabetic polyneuropathy, without long-term current use of insulin (CMS/HCC)- Primary Screening for hyperlipidemia Screening for lipoid disorders Annual physical exam Routine general medical examination at a [facility] care facility Diabetic polyneuropathy associated with type [...] of insulin (CMS/HCC) documented [facility] encounter [facility] Diagnosis Type 2 diabetes mellitus with diabetic polyneuropathy, without long-term current use of insulin (CMS/HCC)- Primary Screening for hyperlipidemia Screening for lipoid disorders Annual physical exam Routine general medical examination at a [facility] care facility Diabetic polyneuropathy associated with type [...] hypofunction Low libido documented in [facility] encounter [facility] Diagnosis Type 2 diabetes mellitus with diabetic polyneuropathy, without long-term current use of insulin (CMS/HCC)- Primary Screening for hyperlipidemia Screening for lipoid disorders Annual physical exam Routine general medical examination at a [facility] care facility Diabetic polyneuropathy associated with type [...] of insulin (CMS/HCC) documented in this encounter [facility] HealthcareEvaluation note* Diagnosis Type 2 diabetes mellitus with diabetic polyneuropathy, without long-term current use of insulin (CMS/HCC)- Primary Screening for hyperlipidemia Screening for lipoid disorders Annual physical exam Routine general medical examination at a [facility] Diabetic polyneuropathy associated with type 2 [...] Other hyperlipidemia (CMS/HCC) documented in this encounter [facility] Work Phone: Evaluation note* Diagnosis Type 2 diabetes mellitus with [...] 2 diabetes mellitus (CMS/HCC) Other hyperlipidemia (CMS/HCC) Polyneuropathy- Primary Unspecified hereditary and idiopathic peripheral neuropathy Paresthesia Disturbance of skin sensation documented in this encounter [facility] HealthcareEvaluation note* Diagnosis Type 2 diabetes mellitus [...] 2 diabetes mellitus (CMS/HCC) Other hyperlipidemia (CMS/HCC) Elevated liver enzymes- Primary Other nonspecific abnormal serum enzyme levels documented in this encounter [facility] Summary Purpose Family History No Family History Records FoundNo Family History Records FoundNo Family History Records FoundNo Family History Records FoundNo Family History Records Found Advance Directives Advance Directive Response Recorded Date/ Time Advance Directives No September 06, 2024 1:34pm Chief Complaint and Reason for Visit Chief Complaint Admit Date I70.213 September 15, 2024 1:30pm Additional Source Comments (unrecognized sect ion and content) No Status Records FoundNo Status Records FoundNo Status Records FoundNo Status Records FoundNo Status Records Found INFORMATION SOURCE (unrecogn ized section and content) DATE CREATED AUTHOR [facility] DATE CREATED AUTHOR AUTHOR'S ORGANIZ ATION 11/13/2021 [facility] DATE CREATED AUTHOR AUTHOR'S ORGANIZ ATION 03/18/2023 [facility] pital DATE CREATED AUTHOR AUTHOR'S ORGANIZ ATION 09/20/2024 [facility] DATE CREATED AUTHOR AUTHOR'S ORGANIZ ATION 11/30/2024 [facility] dical Specialists EPIC Care Teams (unrecognized sec tion and content) Membership Director Relationship Specialty Start Date End Date Shaikh Hunt MD [address] [place] [address] PCP - General Internal Medicine 02/19/24 Membership Director Relationship Specialty Start Date End Date Shaikh Hunt MD [address] [place] [address] PCP - General Internal Medicine 02/19/24 Membership Director Relationship Specialty Start Date End Date Shaikh Hunt MD [address] [place] [phone] PCP - General Internal Medicine 02/19/24 Membership Director Relationship Specialty Start Date End Date Shaikh Hunt MD [address] [place] [phone] PCP - General Internal Medicine 02/19/24 Membership Director Relationship Specialty Start Date End Date Shaikh Hunt MD [address] [place] [phone] PCP - General Internal Medicine 02/19/24 Membership Director Relationship Specialty Start Date End Date Shaikh Hunt MD [address] [place] [phone] PCP - General Internal Medicine 02/19/24 Membership Director Relationship Specialty Start Date End Date Marty Avendaño MD [address] [place] [phone] PCP - General Family Medicine 08/31/24 Kaylyn Kelly NP [address] [place] [address] Nurse Practitioner Family Medicine 08/31/24 Membership Director Relationship Specialty Start Date End Date Marty Avendaño MD [address] [place] [phone] PCP - General Family Medicine 08/31/24 Kaylyn Kelly NP [address] [place] [address] Nurse Practitioner Family Medicine 08/31/24 Team Status: Active Member Role Status Dates Kaylyn Kelly NP-C Primary Care Provider Ac tive Team Status: Inactive Member Role Status Dates Joe Dowell MD Attending Provider Active S tart: September 15, 2024 End: September 15, 2024 Kaylyn Kelly NP-C Primary Care Provider Ac tive Start: September 15, 2024 End: September 15, 2024 Membership Director Relationship Specialty Start Date End Date Marty Avendaño MD [address] [place] [phone] PCP - General Family Medicine 08/31/24 Kaylyn Kelly NP [address] [place] [address] Nurse Practitioner Family Medicine 08/31/24 Membership Director Relationship Specialty Start Date End Date Marty Avendaño MD [address] [place] [address] PCP - General Family Medicine 08/31/24 Kaylyn Kelly NP [address] [place] [phone] Nurse Practitioner Family Medicine 08/31/24 Membership Director Relationship Specialty Start Date End Date Marty Avendaño MD [address] [place] [address] PCP - General Family Medicine 08/31/24 Kaylyn Kelly NP [address] [place] [address] Nurse Practitioner Family [facility] 08/31/24 Membership Director Relationship Specialty Start Date End Date Marty Avendaño MD [address] [place] [address] PCP - General Family Medicine 08/31/24 Kaylyn Kelly NP [address] [place] [address] Nurse Practitioner Family Medicine 08/31/24 Reason for Visit (unrecogniz ed section and content) Reason Comments Peripheral Neuropathy Reason Comments Med Refill Reason Comments Testicular Hypofunction Reason Comments Diabetes Reason Comments Numbness Tingling Goals (unrecognized section and content) Goals may [...] BE BASED ON THE PRIMARY CLINICAL RECORDS. [employer] [facility]. provides no warranty or guarantee of the accuracy or completeness of information in this document.
[2024-12-02 16:34] LABS: Alanine Aminotransferase 81 U/L (16-63); Albumin Globulin Ratio 0.8; Albumin Level 3.1 g/dL (3.4-5.0); Alkaline Phosphatase 562 U/L (46-116); Amylase 18 U/L (25-115); Anion Gap 10.6; Aspartate Amino Transferase 76 U/L (15-37); BUN Creatinine Ratio 15.5; Bilirubin Total 1.8 mg/dL (0.2-1.0); Calcium 8.4 mg/dL (8.5-10.1); Carbon Dioxide 28.4 mmol/L (21.0-32.0); Chloride 100 mmol/L (98-107); Estimated GFR (African America >60 (>=60 mL/min/1.73m^2); Estimated GFR (Non-African Ame >60 (>=60 mL/min/1.73m^2); Globulin 3.9 g/dL; Glucose 134 mg/dL (74-106); Sodium 135 mmol/L (136-145)
[2024-12-04 05:08] LABS: HBsAg Screen Negative (Negative); HCV Ab Non Reactive (Non Reactive); Hep A Ab, IgM Negative (Negative); Hep B Core Ab, IgM Negative (Negative)
== END 2024-12-02 15:38 | disposition home or self-care (01) ==
LOC: LAB 15:38
DX: R74.8 Abnormal levels of other serum enzymes (principal); E11.42 Type 2 diabetes mellitus with diabetic polyneuropathy; Z79.4 Long term (current) use of insulin
CPT/HCPCS: 36415; 80053; 80074; 82150; 83690

== ENCOUNTER 2024-12-10 14:54 | Outpatient (OUT) | payer MEDICARE, SELFPAY ==
--- NOTE | 2024-12-10 14:57 | US_ITS ---
[facility] [id number] Patient Name: LAURA ISAACS MRN: [id number] date: 1955 Sex: M Assigned Patient Location: US Current Patient Location: Accession/Order Number: [id number] Exam Date: 12/10/2024 15:09 Report Date: 12/13/2024 08:06 At the request of: GIGI BLAIR Procedure: US right upper quadrant EXAM: US right upper quadrant HISTORY: Elevated Liver Enzyme COMPARISON: None. TECHNIQUE: Grayscale, color and Doppler FINDINGS: The liver is small in size nodular contour and heterogeneous in echotexture consistent with cirrhosis. Scattered hypoechogenic lesions are identified in the liver the largest in the right hepatic lobe measures 1.5 x 1.4 x 1.2 cm. Hepatopedal flow in the main portal vein. The gallbladder wall is thickened measuring 4.1 mm per the common bile duct measures 3.2 mm. Negative sonographic Kendrick sign. No cholelithiasis The pancreas is poorly visualized due to bowel gas. There is an area of hypoechogenicity inseparable from the pancreatic head measuring 3.9 x 1.4 x 2.1 cm, indeterminate The right kidney is normal measuring 11.8 x 5.9 x 4.7 cm US/US right upper quadrant IMPRESSION: Cirrhosis with scattered indeterminate hepatic lesions. Consider triphasic CT scan for further evaluation Gallbladder wall thickening suggesting cholecystitis 3.9 cm hypoechogenic mass, pancreatic mass versus peripancreatic mass Electronically authenticated by: POORNIMA RUSSELL Date: 12/13/2024 08:06
== END 2024-12-10 14:55 | disposition home or self-care (01) ==
LOC: US 14:54
DX: R74.8 Abnormal levels of other serum enzymes (principal); K74.60 Unspecified cirrhosis of liver; K76.9 Liver disease, unspecified
CPT/HCPCS: 76705

== ENCOUNTER 2024-12-15 14:18 | Emergency (ER) | payer MEDICARE, SELFPAY ==
[2024-12-15] VITALS (57 sets, daily range): BP systolic 112–142; BP diastolic 75–98; PULSE 93–120; TEMP 36.4; O2SAT 96–100; BMI 28.0
--- OUTSIDE RECORDS SUMMARY | 2024-12-15 14:32 | XMS_ITS | CCD ---
Author Organization [facility] CliniSyaz Care Team Providers Care Bulldozer Operator Name Role Phone WEST, DR POORNIMA Murry [...] Primary Care Provider Kaylyn Kelly NP Unavailable Joe Dowell MD Attending Provider Leticia CARRY ALL DRIVER-CKaylyn Primary Care [facility] er Kaylyn Kelly Primary Care Unavaila Joe Canseco Attending Unavailable Joe Dowell Admitting Unavailable ALLA SANTANA Attending Unavailable KAYLYN KELLY Attending Unavailabl e SHAIKH HUNT Attending Unavailable ALISSA MURO Attending Unavailable FASHAIKH MOSLEY Attending Unavailable ALLA SANTANA Attending Unavailable SHAIKH HUNT Attending Unavailable ALLA SANTANA Attending Unavailable ALLA SANTANA Attending Unavailable SHAIKH HUNT Referring Unavailable EARNEST FIGUEROA Attending Unavailable EARNEST FIGUEROA Referring Unavailable KAYLYN KELLY Attending Unavailabl e Allergies Allergy Classification Reported Allergen(s) Allergy Type Date of Onset Reaction(s) Facility (20 sources) empagliflozin / Linagliptin Drug Allergy 8 Unknown [facility] Healthcare (20 sources) Amoxicillin-Pot Clavulanate Drug Allergy 3 Diarrhea [facility] Healthcare (20 sources) Metformin And Related Drug Intolerance 8 Unknown [facility] Medications Current Medications Medication Drug Class(es) Dates Sig (Normalized) Sig (Original) atorvastatin 20 mg oral tablet (20 sources) HMG-CoA Reductase Inhibitor Start: 06-01-20 24 End: 11-28-19 25 take 1 tablet by mouth once daily atorvastatin (Lipitor) 20 MG tablet Indications: Other hyperlipidemia (CMS/HCC) Take 1 tablet (20 mg) by mouth Daily 90 tablet 1 06/01/2024 Active Carboxymethylcellulose (20 sources) Carboxymethylcel lulose Sodium (EYE DROPS OP) Administer into affected eye(s) Active Continuous Glucose Personal Injury Specialist (FreeStyle Nak[place] 2 Clyde) device (7 sources) Start: 12-02-19 25 Continuous Glucose Personal Injury Specialist (FreeStyle [place] 2 [place]) device Indications: Type 2 diabetes mellitus with diabetic polyneuropathy, with long-term current use of insulin ([facility]) 1 each continuously 1 each 12/02/2024 Active Continuous Glucose Sensor (FreeStyle Nakia 2 Sensor) [facility] (16 sources) Start: 12-06-19 25 Continuous Glucose Sensor (FreeStyle Nakia 2 Sensor) misc Indications: Type 2 diabetes mellitus with diabetic polyneuropathy, without long-term current use of insulin ([facility]/HCC) 1 each continuously 1 each 3 12/06/2024 Active Start: 09-01-2024 End: 12-06-2024 Continuous Glucose Sensor (F reeStyle Nakia 2 Sensor) misc Indications: Type 2 diabetes mellitus with diabetic polyneuropathy, without long-term current use of insulin ([facility]/HCC) 1 each continuously 1 each 3 09/01/2024 12/06/2024 Discontinued (Reorder) Start: 09-01-2024 Continuous Glu cose Sensor (FreeStyle Nakia 2 Sensor) misc Indications: Type 2 diabetes mellitus with diabetic polyneuropathy, without long-term current use of insulin (CMS/HCC) 1 each continuously 1 each 3 09/01/2024 Active dorzolamide 20 mg/ml / timolol 5 mg/ml ophthalmic solution (20 sources) Carbonic Anhydrase Inhibitor, beta-Adrenergic Lev take 1 drop(s) into the eye(s) in the morning dorzolamide-timolol (Cosopt) 2-0.5 % ophthalmic solution Administer 1 drop into both eyes in the morning and 1 drop before bedtime. Active Dulaglutide 3 MG/0.5ML solution auto-injector (7 sources) Start: 2024 inject 3 mg by subcutaneous injection every week Dulaglutide 3 MG/0.5ML solution auto-injector Indications: Type 2 diabetes mellitus with diabetic polyneuropathy, with long-term current use of insulin (CMS/HCC) Inject 3 mg under the skin 1 (one) time per week 0.5 mL 3 12/02/2024 Active DULoxetine 40 mg delayed release oral [...] mg oral tablet (20 sources) Sulfonylurea Start: 2023 take 0.5 tablet by mouth in the [...] ml insulin glargine 100 unt/ml pen injector (20 sources) Insulin Analog Start: 04-26-2024 End: 02-27-2025 insulin glargine (Lantus SoloStar) 100 UNIT/ML pen Indications: Type 2 diabetes mellitus with diabetic polyneuropathy, with long-term current use of insulin (CMS/HCC) Inject 30 Units under the skin at bedtime 27 mL 1 08/31/2024 02/27/2025 Active pregabalin 200 mg oral capsule (20 sources) Start: 04-05-2024 End: 11-30-2024 pregabalin (Lyrica) 200 MG capsule Indications: Type 2 diabetes mellitus with diabetic polyneuropathy, without long-term current use of insulin (CMS/HCC) , Diabetic polyneuropathy associated with type 2 diabetes mellitus (CMS/HCC) Take 1 capsule (200 mg) by mouth Daily 30 capsule 2 09/01/2024 Active SITagliptin 100 mg oral tablet (20 sources) Dipeptidyl Peptidase 4 Inhibitor Start: 03-22-2024 End: 09-18-2024 take 1 tablet by mouth once daily Januvia 100 MG tablet Indications: Type 2 diabetes mellitus without complications (CMS/HCC) TAKE 1 TABLET BY MOUTH EVERY DAY 90 tablet 1 08/26/2024 Active Completed/Discontinued Medications Medication Drug Class(es) Dates Sig (Normalized) Sig (Original) Continuous Blood Gluc Personal Injury Specialist (ViaBillStyle Nakia 2 Clyde) device (20 sources) End: 12-02-2024 Continuous Blood Gluc Personal Injury Specialist (FreeStyle Nakia 2 Clyde) device 12/02/2024 Discontinued (Reorder) Continuous Blood Gluc Personal Injury Specialist (FreeStyle Nakia 2 Clyde) device Active Continuous Blood Gluc Sensor (FreeStyle Nakia 2 Sensor) misc (13 sources) End: 09-01-2024 Continuous Blood Gluc Sensor (FreeStyle Nakia 2 Sensor) misc 09/01/2024 Discontinued (Reorder) Continuous Blood Gluc Sensor (FreeStyle Nakia 2 Sensor) misc Active 0.5 ml dulaglutide 3 mg/ml auto-injector (20 sources) GLP-1 Receptor Agonist Start: 06-01-2024 End: 12-02-2024 inject 1.5 mg by subcutaneous injection every week dulaglutide (Trulicity) 1.5 MG/0.5ML solution pen-injector Indications: Type 2 diabetes mellitus with diabetic polyneuropathy, with long-term current use of insulin (CMS/HCC) Inject 1.5 mg under the skin 1 (one) time per week 12 pen 1 06/01/2024 12/02/2024 Discontinued (Dose adjustment) sildenafil 100 mg oral tablet (20 sources) Phosphodiesterase 5 Inhibitor Start: 04-21-2024 End: 12-02-2024 take 1 tablet by mouth once daily as needed sildenafil (Viagra) 100 MG tablet Indications: Other male erectile dysfunction Take 1 tablet (100 mg) by mouth Daily as needed for erectile dysfunction 30 tablet 2 04/21/2024 12/02/2024 Discontinued (Med list cleanup) Problems Active Problems Problem Classification Problem Date [...] Onset: 02-19-2024 02-19-2024 Chronic Other endocrine disorders (20 sources) Hypotestosteronism; Translations: [Testicular hypofunction] Onset: 05-03-2024 4 Chronic Other endocrine disorders (2 sources) Male hypogonadism; Translations: [Testicular hypofunction] 08-26-2024 Chronic Other liver diseases (2 sources) Lesion of liver; Translations: [Liver disease, unspecified] Onset: 12-13-2024 12-13-2024 Chronic Other liver diseases (12 sources) Elevated liver enzymes level; Translations: [Abnormal levels of other serum enzymes] Onset: 12-02-2024 12-01-2024 Episodic Other male genital disorders (20 sources) Other male erectile dysfunction; Translations: [Impotence [...] Translations: [Paresthesia of skin] 08-16-2024 Episodic Other screening for suspected conditions (not mental disorders or infectious disease) (20 sources) Patient encounter status; Translations: [Encounter for screening for lipoid disorders] Onset: 10-02-2023 10-02-2023 Episodic Pancreatic disorders (not diabetes) (2 sources) Mass of pancreas; Translations: [Other specified diseases of pancreas] Onset: 12-13-2024 12-13-2024 Episodic Peripheral and visceral atherosclerosis (1 source) Atherosclerosis of [place] arteries of extremities with intermittent claudication, bilateral legs; Translations: [Atherosclerosis of [place] arteries of extremities with intermittent claudication, bilateral legs] Onset: 09-15-2024 Chronic Residual codes; unclassified (2 sources) Reduced libido; Translations: [Decreased libido] 08-26-2024 Episodic Past or Other Problems Problem Classification Problem Date Documented Da te Episodic/Chronic Other and unspecified benign neoplasm (20 sources) History of polyp of colon; Translations: [Hx of colonic polyps] Onset: 02-19-2024 02-19-2024 Episodic Other nervous system disorders (20 sources) Paresthesia of lower extremity; Translations: [Paresthesia of skin] Onset: 03-16-2024 03-16-2024 Episodic Other nutritional; endocrine; and metabolic disorders (20 sources) H/O: endocrine disorder; Translations: [Personal history of other endocrine, nutritional and metabolic disease] Onset: 05-03-2024 05-03-2024 Episodic Other nutritional; endocrine; and metabolic disorders (20 sources) Weight increased; Translations: [Abnormal weight gain] Onset: 06-01-2024 06-01-2024 Episodic Results Test Name Value Interpretation Reference Range Facility [place] [address] Ultrasound Report Signed Patient: LAURA SONG Jr. MR#: [id number] : 1955 Acct:[id number] Age/Sex: 69 / M ADM Date: 12/10/24 Loc: US Attending Dr: KAYLYN KELLY Ordering Physician: KAYLYN KELLY Date of Service: 12/10/24 Procedure(s): US right upper quadrant Accession Number(s): [id number] cc: KAYLYN KELLY [place] [id number] Patient Name: LAURA SONG MRN: [id number] date: 1955 Sex: M Assigned Patient Location: US Current Patient Location: Accession/Order Number: [id number] Exam Date: 12/10/2024 15:09 Report Date: 12/13/2024 08:06 At the request of: KAYLYN KELLY Procedure: US right upper quadrant EXAM: US right upper quadrant HISTORY: Elevated Liver Enzyme COMPARISON: None. TECHNIQUE: Grayscale, color and Doppler FINDINGS: The liver is small in size nodular contour and heterogeneous in echotexture consistent with cirrhosis. Scattered hypoechogenic lesions are identified in the liver the largest in the right hepatic lobe measures 1.5 x 1.4 x 1.2 cm. Hepatopedal flow in the main portal vein. The gallbladder wall is thickened measuring 4.1 mm per the common bile duct measures 3.2 mm. Negative sonographic Kendrick sign. No cholelithiasis The pancreas is poorly visualized due to bowel gas. There is an area of hypoechogenicity inseparable from the pancreatic head measuring 3.9 x 1.4 x 2.1 cm, indeterminate The right kidney is normal measuring 11.8 x 5.9 x 4.7 cm US/US right upper quadrant IMPRESSION: Cirrhosis with scattered indeterminate hepatic lesions. Consider triphasic CT scan for further evaluation Gallbladder wall thickening suggesting cholecystitis 3.9 cm hypoechogenic mass, pancreatic mass versus peripancreatic mass Electronically authenticated by: POORNIMA RUSSELL Date: 12/13/2024 08:06 Dictated By: Poornima Russell M.D. Signed By: 12/13/24807 DD/ 5 TD/TT: Information Systems Auditor: [facility] Radiology, Radiologist, MD - 12/13/2024 [place] [address] Ultrasound Report Signed Patient: LAURA SONG Jr. MR#: [id number] : 1955 Acct:[id number] Age/Sex: 69 / M ADM Date: 12/10/24 Loc: Attending Dr: KAYLYN KELLY Ordering Physician: KAYLYN KELLY Date of Service: 12/10/24 Procedure(s): US right upper quadrant Accession Number(s): [id number] cc: KAYLYN KELLY [place] [address] Patient Name: LAURA SONG MRN: [facility]:[id number] date: 1955 Sex: M Assigned Patient Location: US Current Patient Location: Accession/Order Number: [id number] Exam Date: 12/10/2024 15:09 Report Date: 12/13/2024 08:06 At the request of: KAYLYN KELLY Procedure: US right upper quadrant EXAM: US right upper quadrant HISTORY: Elevated Liver Enzyme COMPARISON: None. TECHNIQUE: Grayscale, color and Doppler FINDINGS: The liver is small in size nodular contour and heterogeneous in echotexture consistent with cirrhosis. Scattered hypoechogenic lesions are identified in the liver the largest in the right hepatic lobe measures 1.5 x 1.4 x 1.2 cm. Hepatopedal flow in the main portal vein. The gallbladder wall is thickened measuring 4.1 mm per the common bile duct measures 3.2 mm. Negative sonographic Kendrick sign. No cholelithiasis The pancreas is poorly visualized due to bowel gas. There is an area of hypoechogenicity inseparable from the pancreatic head measuring 3.9 x 1.4 x 2.1 cm, indeterminate The right kidney is normal measuring 11.8 x 5.9 x 4.7 cm US/US right upper quadrant IMPRESSION: Cirrhosis with scattered indeterminate hepatic lesions. Consider triphasic CT scan for further evaluation Gallbladder wall thickening suggesting cholecystitis 3.9 cm hypoechogenic mass, pancreatic mass versus peripancreatic mass Electronically authenticated by: POORNIMA RUSSELL Date: 12/13/2024 08:06 Dictated By: Poornima Russell M.D. Signed By: 12/13/24807 DD/ 5 TD/TT: Information Systems Auditor: [facility] Radiology Study observation (narrative) [facility] US RIGHT UPPER QUADRANTOrder ed By: Radiologist Radiology on 12-13-2024 [facility] Work Phone: ALL AMYLASEon 12-02-2024 Amylase [Catalytic activity/Vol] 18 U/L Low 25 - 115 U/L [facility] CCF CMP (CMP) (FOR REMOTE FH C USE)on 12-02-2024 Albumin [Mass/Vol] 3.1 g/dL Low 3.4 - 5.0 g/dL [facility] ALBUMIN GLOBULIN RATIO 0.8 [facility] ALP [Catalytic activity/Vol] 562 U/L High 46 - 116 U/L [facility] ALT [Catalytic activity/Vol] 81 U/L High 16 - 63 U/L [facility] Anion gap [Moles/Vol] 10.6 mmol/L [facility] AST [Catalytic activity/Vol] 76 U/L High 15 - 37 U/L [facility] Bilirubin [Mass/Vol] 1.8 mg/dL High 0.2 - 1 .0 mg/dL [facility] Calcium [Mass/Vol] 8.4 mg/dL Low 8.5 - 10. 1 mg/dL [facility] Chloride [Moles/Vol] 100 mmol/L 98 - 10 7 mmol/L [facility] CO2 [Moles/Vol] 28.4 mmol/L 21.0 - 32.0 mmol/L [facility] Creatinine [Mass/Vol] 0.97 mg/dL 0.70 - 1.30 mg/dL [facility] GFR/1.73 sq M.predicted CKD-EPI (S/P/Bld) [Vol rate/Area] >60 >=60 mL/min/1.73m 2 [facility] Globulin (S) [Mass/Vol] 3.9 g/dL [facility] Glucose [Mass/Vol] 134 mg/dL High 74 - 106 mg/dL NO [facility] Potassium [Moles/Vol] 4 mmol/L 3.5 - 5.1 mmol/L [facility] Protein [Mass/Vol] 7 g/dL 6.4 - 8.2 g/dL NO [facility] Sodium [Moles/Vol] 135 mmol/L Low 136 - 145 mmol/L [facility] TBH EGFR-NON AF CAMEROONIAN >60 >=60 mL/min/1.73m 2 [facility] Urea nitrogen [Mass/Vol] 15 mg/dL 7.0 - 18.0 mg/dL [facility] Urea nitrogen/Creatinine [Mass ratio] 15.5 mg/mg [facility] LIPASEon 12-02-2024 Lipase [Catalytic activity/Vol] 39 U/L 16.0 - 77.0 U/L [facility] No Panel Informationon 12-02 Interpretation and review of laboratory results Abnormal [facility] ALL CBC WITH AUTO DIFFon BASOPHILS ABSOLUTE AUTO 0.1 [facility] Basophils/100 WBC (Bld) 0.8 % 0.2 - 2.0 % [facility] Eosinophils/100 WBC (Bld) 4.3 % 0.9 - 7.0 % [facility] Erythrocyte distribution width (RBC) [Ratio] 12.2 % 11.0 - 15.0 % [facility] Hematocrit (Bld) [Volume fraction] 44.3 % 42.0 - 54.0 % [facility] Hemoglobin (Bld) [Mass/Vol] 15.1 g/dL 14.0 - 18.0 g/dL [facility] IMMATURE GRANULOCYTES ABS AUTO 0.03 [facility] Immature granulocytes/100 WBC (Bld) 0.3 % 0.0 - 0.5 % [facility] Interpretation and review of laboratory results Abnormal [facility] LYMPHOCYTES ABSOLUTE AUTO 1.1 Low [facility] Lymphocytes/100 WBC (Bld) 12.7 % Low 20.5 - 60.0 % [facility] MCH (RBC) [Entitic mass] 30.7 pg 25.9 - 34.0 pg [facility] MCHC (RBC) [Mass/Vol] 34.1 g/dL 29.9 - 35.2 g/dL [facility] MCV (RBC) [Entitic vol] 90 fL 80.0 - 94.0 fL [facility] MONOCYTES ABSOLUTE AUTO 1 High [facility] Monocytes/100 WBC (Bld) 11.9 % 1.7 - 12.0 % [facility] NEUTROPHILS ABSOLUTE AUTO 6 [facility] Neutrophils/100 WBC (Bld) 70 % 43.0 - 75.0 % [facility] Platelet mean volume (Bld) [Entitic vol] 12.3 fL 9.5 - 13.5 fL [facility] EO # 0.4 [facility] PLT 184 [facility] RBC 4.92 [facility] WBC 8.6 [facility] US arterial pvr rest Janie US arterial pvr rest [place] [address] Ultrasound Report Signed Patient: Laura Song JR MR#: [id number] : 1955 Acct:[id number] Age/Sex: 69 / M ADM Date: 09/15/24 Loc: Room: Type: [facility] Attending Dr: Joe Dowell MD Ordering Provider: Joe Dowell MD Date of Service: 09/15/24 US/US arterial pvr rest LE: I70.213 - Atherosclerosis of [place] arteries of extremiti... Copies to: Joe Dowell [...] Joe Dowell M.D.09/16/2024 8:49 AM Dictation Location: [facility]04 Tech: Nancy Yarbrough Transcribed By: TRICIA 09/16/2449 Dictated By: Joe Dowell MD 09/16/2448 Signed By: 09/16/2449 Normal [facility] ALL BASIC METABOLIC PANELon 08-23-2024 Anion gap [Moles/Vol] 12.5 mmol/L [facility] Calcium [Mass/Vol] 8.9 mg/dL 8.5 - 10. 1 mg/dL [facility] Chloride [Moles/Vol] 103 mmol/L 98 - 10 7 mmol/L [facility] Healthcare CO2 [Moles/Vol] 25.9 mmol/L 21.0 - 32.0 mmol/L [facility] Creatinine [Mass/Vol] 1.09 mg/dL 0.70 - 1.30 mg/dL [facility] GFR/1.73 sq M.predicted CKD-EPI (S/P/Bld) [Vol rate/Area] >60 >=60 mL/min/1.73m 2 [facility] Glucose [Mass/Vol] 272 mg/dL High 74 - 106 mg/dL [facility] Interpretation and review of laboratory results Abnormal [facility] Potassium [Moles/Vol] 4.4 mmol/L 3.5 - 5.1 mmol/L [facility] Sodium [Moles/Vol] 137 mmol/L 136 - 145 mmol/L [facility] TB EGFR-NON AF CAMEROONIAN >60 >=60 mL/min/1.73m 2 [facility] Urea nitrogen [Mass/Vol] 15 mg/dL 7.0 - 18.0 mg/dL [facility] Urea nitrogen/Creatinine [Mass ratio] 13.8 mg/mg [facility] CBC AUTO DIFFon 03-07-2023 BASO # 0.0 103/ul Normal 0.0-0.1 [facility] Comment on above: Performed By: #### C BC #### [facility] [address] [place] [address] [address] Stella Mora Basophils/100 WBC (Bld) 0.4 % Normal 0.2-2.0 [facility] Comment on above: Performed By: #### C BC #### [facility] [address] [place] [address] Dr. Stella Mora EO # 0.1 103/ul Normal 0.0-0.7 [facility] Comment on above: Performed By: #### C BC #### [facility] [address] [place] [address] Dr. Stella Mora Eosinophils/100 WBC (Bld) 0.7 % Critically low 0.9-7.0 [facility] Comment on above: Performed By: #### C BC #### [facility] [address] [place] [address] Dr. Stella Mora Erythrocyte distribution width (RBC) [Ratio] 11.9 % Normal 11.0-15.0 [facility] Comment on above: Performed By: #### C BC #### [facility] [address] [place] [address] Dr. Stella Mora Hematocrit (Bld) [Volume fraction] 43.5 % Normal 42.0-54.0 [facility] Comment on above: Performed By: #### C BC #### [facility] [address] [place] [address] Dr. Stella Mora Hemoglobin (Bld) [Mass/Vol] 15.6 g/dL Normal 14.0-18.0 [facility] Comment on above: Performed By: #### C BC #### [facility] [address] [place] [address] Dr. Stella Mora IG # 0.01 10e3/ul Normal 0.00-0.03 [facility] Comment on above: Performed By: #### C BC #### [facility] [address] [place] [address] Dr. Stella Mora IG % 0.1 % Normal 0.0-0.5 [facility] Comment on above: Performed By: #### C BC #### [facility] [address] [place] [address] Dr. Stella Mora LYMPH # 1.7 103/ul Normal 1.2-3.8 [facility] Comment on above: Performed By: #### C BC #### [facility] [address] [place] [address] Dr. Stella Mora Lymphocytes/100 WBC (Bld) 24.5 % Normal 20.5-60.0 [facility] Comment on above: Performed By: #### C BC #### [facility] [address] [place] [address] Dr. Stella Mora MANUAL DIFF REQ NO Normal [facility] Comment on above: Performed By: #### C BC #### [facility] [address] [place] [address] Dr. Stella Mora MCH (RBC) [Entitic mass] 31.8 pg Normal 25.9-34.0 [facility] Comment on above: Performed By: #### C BC #### [facility] [address] [place] [address] Dr. Stella Mora MCHC (RBC) [Mass/Vol] 35.9 g/dL Critically high 29.9-35.2 [facility] Comment on above: Performed By: #### C BC #### [facility] [address] [place] [address] Dr. Stella Mora MCV (RBC) [Entitic vol] 88.6 fL Normal 80.0-94.0 [facility] Comment on above: Performed By: #### C BC #### [facility] [address] [place] [address] Dr. Stella Mora MONO # 0.5 103/ul Normal 0.3-0.8 [facility] Comment on above: Performed By: #### C BC #### [facility] [address] [place] [address] Dr. Stella Mora Monocytes/100 WBC (Bld) 6.9 % Normal 1.7-12.0 [facility] Comment on above: Performed By: #### C BC #### [facility] [address] [place] [address] Dr. Stella Mora NEUT # 4.6 103/ul Normal 1.4-6.5 [facility] Comment on above: Performed By: #### C BC #### [facility] [address] [place] [address] Dr. Stella Mora Neutrophils/100 WBC (Bld) 67.4 % Normal 43.0-75.0 [facility] Comment on above: Performed By: #### C BC #### [facility] [address] [place] [address] Dr. Stella Mora Platelet mean volume (Bld) [Entitic vol] 10.7 fL Normal 9.5-13.5 [facility] Comment on above: Performed By: #### C BC #### [facility] [address] [place] [address] Dr. Stella Mora PLT 242 103/ul Normal 150-450 [facility] Comment on above: Performed By: #### C BC #### [facility] [address] [place] [address] Dr. Stella Mora RBC 4.91 106/ul Normal 4.70-6.10 [facility] Comment on above: Performed By: #### C BC #### [facility] [address] [place] [address] Dr. Stlela Mora WBC 6.8 103/ul Normal 4.0-11.0 [facility] Comment on above: Performed By: #### C BC #### [facility] [address] [place] [address] Dr. Stella Mora GLYCOHEMOGLOBIN A1Con 05-05- 2023 ADA RECOMMENDATION SEE BELOW Normal [facility] Comment on above: Result Comment: ADA RECOMMENDED LIMIT 4.0 - 6.0 ADA THERAPEUTIC TARGET < 7.0 ACTION SUGGESTED > 7.0 Performed By: #### A 1C #### [facility] [address] [place] [address] Dr. Stella Mora Glucose [Mass/Vol] 309 mg/dL Normal [facility] [facility] Comment on above: Performed By: #### A 1C #### [facility] [address] [place] [address] Dr. Stella Mora HbA1c (Bld) [Mass fraction] 12.4 % Critically high 4.5-6.2 [facility] Comment on above: Performed By: #### A 1C #### [facility] [address] [place] [address] Dr. Stella Mora PROF 14(COMP METB)on 023 Albumin [Mass/Vol] 4.0 g/dL Normal 3.4-5.0 [facility] Comment on above: Performed By: #### C MP #### [facility] [address] [place] [address] Dr. Stella Mora Albumin/Globulin [Mass ratio] 0.9 {ratio} Normal [facility] Comment on above: Performed By: #### C MP #### [facility] [address] [place] [address] Dr. Stella Mora ALP [Catalytic activity/Vol] 103 U/L Normal 46-116 [facility] Comment on above: Performed By: #### C MP #### [facility] [address] [place] [address] Dr. Stella Mora ALT [Catalytic activity/Vol] 45 U/L Normal 16-63 [facility] Comment on above: Performed By: #### C MP #### [facility] [address] [place] [address] Dr. Stella Mora Anion gap [Moles/Vol] 9.5 mmol/L Normal [facility] Comment on above: Performed By: #### C MP #### [facility] [address] [address] [address] Stella Mora AST [Catalytic activity/Vol] 18 U/L Normal 15-37 [facility] Comment on above: Performed By: #### C MP #### [facility] [address] [place] [address] Dr. Stella Mora Bilirubin [Mass/Vol] 1.9 mg/dL Critically high 0.2-1.0 [facility] Comment on above: Performed By: #### C MP #### [facility] [address] [place] [address] Dr. Stella Mora Calcium [Mass/Vol] 9.1 mg/dL Normal 8.5-10.1 [facility] Comment on above: Performed By: #### C MP #### [facility] [address] [place] [address] Dr. Stella Mora Chloride [Moles/Vol] 98 mmol/L Normal 98-107 [facility] Comment on above: Performed By: #### C MP #### [facility] [address] [place] [address] Dr. Stella Mora CO2 [Moles/Vol] 28.4 mmol/L Normal 21.0-32.0 [facility] Comment on above: Performed By: #### C MP #### [facility] [address] [place] [address] Dr. Stella Mora Creatinine [Mass/Vol] 0.87 mg/dL Normal 0.70-1.30 [facility] Comment on above: Performed By: #### C MP #### [facility] [address] [place] [address] Dr. Stella Mora EGFR-AF CAMEROONIAN >60 Normal >=60 [facility] Comment on above: Performed By: #### C MP #### [facility] [address] [place] [address] Dr. Stella Mora EGFR-NON AF CAMEROONIAN >60 Normal >=60 [facility] Comment on above: Performed By: #### C MP #### [facility] [address] [place] [address] Dr. Stella Mora Globulin (S) [Mass/Vol] 4.3 g/dL Normal [facility] Comment on above: Performed By: #### C MP #### [facility] [address] [place] [address] Dr. Stella Mora Glucose [Mass/Vol] 258 mg/dL Critically high 74-106 [facility] Comment on above: Performed By: #### C MP #### [facility] [address] [place] [address] Dr. Stella Mora Potassium [Moles/Vol] 3.9 mmol/L Normal 3.5-5.1 [facility] Comment on above: Performed By: #### C MP #### [facility] [address] [place] [address] Dr. Stella Mora Protein [Mass/Vol] 8.3 g/dL Critically high 6.4-8.2 [facility] Comment on above: Performed By: #### C MP #### [facility] [address] [place] [address] Dr. Stella Mora Sodium [Moles/Vol] 132 mmol/L Critically low 136-[address] [facility] Comment on above: Performed By: #### C MP #### [facility] [address] [place] [address] Dr. Stella Mora Urea nitrogen [Mass/Vol] 15.0 mg/dL Normal 7.0-18.0 [facility] Comment on above: Performed By: #### C MP #### [facility] [address] [place] [address] Dr. Stella Mora Urea nitrogen/Creatinine [Mass ratio] 17.2 mg/mg Normal [facility] Comment on above: Performed By: #### C MP #### [facility] [address] [place] [address] Dr. Stella Mora VIT B12 AND FOLATEon 023 Cobalamin (Vitamin B12) [Mass/Vol] 688.0 pg/mL Normal 193.0-986.0 [facility] Comment on above: Performed By: #### B 12FOL #### [facility] [address] [place] [address] Dr. Stella Mora FOLATE 20.10 ng/mL Normal 8.60-58.90 [facility] Comment on above: Performed By: #### B 12FOL #### [facility] [address] [address] [address] Stella Mora XR FOOT URBANO MIN [...] by: POORNIMA RUSSELL Date: 2023-01-09 15:26 Normal [facility] Patient Letter FTMCon 2021 Patient Letter FT November 12, 2021 LAURA SONG JR [address] [place] [phone] LAURA SONG JR 1955 Dear Laura, This is a SECOND ATTEMPT to remind you that you are due for an appointment with [facility]. Please contact our office at [phone] to schedule an appointment at your earliest convenience. Thank you, [facility] Normal [facility] Reminderson 11-12-2021 Reminders - From: Saritha Garcia To: [facility] - Reminders/Recalls; Sent: 05/30/2021 10:58:45 EDT Show up: 09/03/2021 10:58:00 EDT Subject: Ambulatory Reminder Due Date/Time: 10/13/2021 10:58:00 EST Reminder/Recall 5 year colon recall salam 10/13/2021 first recall letter second recall letter Normal [facility] Patient Letter FTMCon 2020 Patient Letter FT September 03, 2021 LAURA SONG JR [address] [place] [phone] LAURA SONG JR 1955 Dear Laura, This is a reminder that you are due for an appointment with [facility]. Please contact our office at [phone] to schedule an appointment at your earliest convenience. Thank you, [facility] Normal [facility] Testosterone Free And Total, Adult Maleon 05-04-2019 Sex Hormone Binding Globulin 37 nmol/L Normal 11-80 [facility] Comment on above: Result Comment: REFE RENCE INTERVAL: Sex Hormone Binding Globulin Access complete set of age- and/or gender-specific reference intervals for this test in the [facility] Test Directory ([employer]). Testosterone, Adult Male 194 ng/dL Low 300-720 [facility] Comment on above: Result Comment: REFE RENCE INTERVAL: Testosterone, Adult Male Access complete set of age- and/or gender-specific reference intervals for this test in the [facility] Test Directory ([employer]). Testosterone, Free Calculation 32 pg/mL Low 47-244 [facility] Comment on above: Result Comment: INTE RPRETIVE [...] reference intervals for this test in the [facility] Test Directory ([employer]). Testosterone, Percentage Free 1.6 % Normal 1.6-2.9 [facility] Comment on above: Result Comment: Perf ormed by [employer], [address] [place] [address] [email or web address], Eleazar Baker MD - Lab. Director Basic Metabolic Panelon 07 Anion gap [Moles/Vol] 13 mmol/L Normal 9-15 [facility] Comment on above: Performed By: #### B MP ####[facility] [place] [phone] Calcium [Mass/Vol] 8.8 mg/dL Normal 8.5-9.9 [facility] Comment on above: Performed By: #### B MP ####[facility] [facility] [phone] Chloride [Moles/Vol] 102 mmol/L Normal 95-107 [facility] Comment on above: Performed By: #### B MP ####[facility] [facility] [phone] CO2 [Moles/Vol] 24 mmol/L Normal 20-31 [facility] Comment on above: Performed By: #### B MP ####[facility] [facility] [phone] Creatinine [Mass/Vol] 0.88 mg/dL Normal 0.70-1.20 [facility] Comment on above: Performed By: #### B MP ####[facility] [facility] PakAd[facility] [phone] GFR/1.73 sq M predicted among blacks MDRD (S/P/Bld) [Vol rate/Area] mL/min/{1.73_m2} Normal >60 [facility] Comment on above: Result Comment: >60 mL/min/1.73m2 EGFR, calc. for ages 18 and older using the MDRD formula (not corrected for weight), is valid for stable renal function. Performed By: #### B MP ####[facility] [facility] [phone] GFR/1.73 sq M.predicted MDRD (S/P/Bld) [Vol rate/Area] mL/min/{1.73_m2} Normal >60 [facility] Comment on above: Result Comment: >60 mL/min/1.73m2 EGFR, calc. for ages 18 and older using the MDRD formula (not corrected for weight), is valid for stable renal function. Performed By: #### B MP ####[facility] [facility] [phone] Glucose [Mass/Vol] 161 mg/dL Critically high 70-99 [facility] Comment on above: Performed By: #### B MP ####[facility] [facility] [address] [place] [phone] Potassium [Moles/Vol] 4.0 mmol/L Normal 3.4-4.9 [facility] Comment on above: Performed By: #### B MP ####[facility] [facility] [phone] Sodium [Moles/Vol] 139 mmol/L Normal 135-144 [facility] Comment on above: Performed By: #### B MP ####[facility] [facility] [address] [phone] Urea nitrogen [Mass/Vol] 21 mg/dL Normal 8-23 [facility] Comment on above: Performed By: #### B MP ####[facility] [facility] [phone] Hemoglobin A1con 05-03-2019 HbA1c (Bld) [Mass fraction] 7.0 % Critically high 4.8-5.9 [facility] Comment on above: Performed By: #### A 1C ####[facility] [facility] [address] [phone] PSA Diagnosticon 05-03-2019 PSA Diagnostic 0.68 ng/mL Normal 0.00-5.40 [facility] Comment on above: Performed By: #### P SADG ####[facility] [facility]Jeff[facility] [place] [phone] UR Microalbumin/Creatinine R atio Randomon 05-03-2019 Microalbumin/creatin ine Ratio 124.0 mg/G Critically high 0.0-30.0 [facility] Comment on above: Performed By: #### U MACR ####[facility] [facility] Hospital[address] [place] [phone] UR Creatinine Random 37.1 mg/dL Normal Not Establ [facility] Comment on above: Performed By: #### U MACR ####[facility] [facility] Hospital[address] RdL[address] [place] [phone] UR Microalbumin Random 4.60 mg/dL Critically high Not [facility] Comment on above: Performed By: #### U MACR ####[facility] [facility] [phone] Testosterone Free And Total, Adult Maleon 02-16-2019 Sex Hormone Binding Globulin 39 nmol/L Normal 11-80 [facility] Comment on above: Result Comment: REFE RENCE INTERVAL: Sex Hormone Binding Globulin Access complete set of age- and/or gender-specific reference intervals for this test in the [facility] Test Directory ([employer]). Testosterone, Adult Male 165 ng/dL Low 300-720 [facility] Comment on above: Result Comment: REFE RENCE INTERVAL: Testosterone, Adult Male Access complete set of age- and/or gender-specific reference intervals for this test in the [facility] Test Directory ([employer]). Testosterone, Free Calculation 26 pg/mL Low 47-244 [facility] Comment on above: Result Comment: INTE RPRETIVE [...] reference intervals for this test in the [facility] Test Directory ([employer]). Testosterone, Percentage Free 1.6 % Normal 1.6-2.9 [facility] Comment on above: Result Comment: Perf ormed by [employer], [address] [place] [address] [email or web address], Eleazar Baker MD - Lab. Director UR Microalbumin/Creatinine R atio Randomon 02-16-2019 Microalbumin/creatin ine Ratio 126.0 mg/G Critically high 0.0-30.0 [facility] Comment on above: Performed By: #### U MACR ####[facility] [facility] [phone] UR Creatinine Random 48.4 mg/dL Normal Not Establ [facility] Comment on above: Performed By: #### U MACR ####[facility] [place] [phone] UR Microalbumin Random 6.10 mg/dL Critically high Not [facility] Comment on above: Performed By: #### U MACR ####[facility] [place] [phone] Basic Metabolic Panelon 02-01 Anion gap [Moles/Vol] 12 mmol/L Normal 9-15 [facility] Comment on above: Result Comment: Effe ctive: 12/10/2018 New reference range for this analyte has been established. Performed By: #### B MP #### [facility] [address] [place] [address] Calcium [Mass/Vol] 9.0 mg/dL Normal 8.5-9.9 [facility] Comment on above: Result Comment: Effe ctive: 12/10/2018 New reference range for this analyte has been established. Performed By: #### B MP #### [facility] [address] [place] [address] Chloride [Moles/Vol] 100 mmol/L Normal 95-107 [facility] Comment on above: Result Comment: Effe ctive: 12/10/2018 New reference range for this analyte has been established. Performed By: #### B MP #### [facility] [address] [place] [address] CO2 [Moles/Vol] 27 mmol/L Normal 20-31 [facility] Comment on above: Result Comment: Effe ctive: 12/10/2018 New reference range for this analyte has been established. Performed By: #### B MP #### [facility] [address] [place] [address] Creatinine [Mass/Vol] 0.82 mg/dL Normal 0.70-1.20 [facility] Comment on above: Performed By: #### B MP #### [facility] [address] [place] [address] GFR/1.73 sq M predicted among blacks MDRD (S/P/Bld) [Vol rate/Area] mL/min/{1.73_m2} Normal >60 [facility] Comment on above: Result Comment: >60 mL/min/1.73m2 EGFR, calc. for ages 18 and older using the MDRD formula (not corrected for weight), is valid for stable renal function. Performed By: #### B MP #### [facility] [address] [place] [address] GFR/1.73 sq M.predicted MDRD (S/P/Bld) [Vol rate/Area] mL/min/{1.73_m2} Normal >60 [facility] Comment on above: Result Comment: >60 mL/min/1.73m2 EGFR, calc. for ages 18 and older using the MDRD formula (not corrected for weight), is valid for stable renal function. Performed By: #### B MP #### [facility] [address] [place] [address] Glucose [Mass/Vol] 95 mg/dL Normal 70-99 [facility] Comment on above: Result Comment: Effe ctive: 12/10/2018 New reference range for this analyte has been established. Performed By: #### B MP #### [facility] [address] [place] [address] Potassium [Moles/Vol] 4.0 mmol/L Normal 3.4-4.9 [facility] Comment on above: Result Comment: Effe ctive: 12/10/2018 New reference range for this analyte has been established. Performed By: #### B MP #### [facility] [address] [place] [address] Sodium [Moles/Vol] 139 mmol/L Normal 135-144 [facility] Comment on above: Result Comment: Effe ctive: 12/10/2018 New reference range for this analyte has been established. Performed By: #### B MP #### [facility] [address] [place] [address] Urea nitrogen [Mass/Vol] 14 mg/dL Normal 8-23 [facility] Comment on above: Performed By: #### B MP #### [facility] [address] [place] [address] Hemoglobin A1con 02-15-2019 HbA1c (Bld) [Mass fraction] 6.9 % Critically high 4.8-5.9 [facility] Comment on above: Performed By: #### A 1C #### [facility] [address] [place] [address] PSA Diagnosticon 02-15-2019 PSA Diagnostic 0.70 ng/mL Normal 0.00-5.40 [facility] Comment on above: Performed By: #### P SADG #### [facility] [address] [place] [address] Testosterone Free And Total, Adult Maleon 11-19-2018 Sex Hormone Binding Globulin 38 nmol/L Normal 11-80 [facility] Comment on above: Result Comment: REFE RENCE INTERVAL: Sex Hormone Binding Globulin Access complete set of age- and/or gender-specific reference intervals for this test in the [facility] Test Directory ([employer]). Testosterone, Adult Male 560 ng/dL Normal 300-720 [facility] Comment on above: Result Comment: REFE RENCE INTERVAL: Testosterone, Adult Male Access complete set of age- and/or gender-specific reference intervals for this test in the [facility] Directory ([email or web address]). Testosterone, Free Calculation 100 pg/mL Normal 47-244 [facility] Comment on above: Result Comment: INTE RPRETIVE [...] reference intervals for this test in the [facility] Test Directory ([employer]). Testosterone, Percentage Free 1.8 % Normal 1.6-2.9 [facility] Comment on above: Result Comment: Perf ormed by [employer], [address] [place] [address] [email or web address], Eleazar Baker MD - Lab. Director Basic Metabolic Panelon 11-03 Anion gap [Moles/Vol] 11 mmol/L Normal 7-13 [facility] Calcium [Mass/Vol] 8.8 mg/dL Normal 8.6-10.2 [facility] Chloride [Moles/Vol] 101 mmol/L Normal 98-107 [facility] CO2 [Moles/Vol] 26 mmol/L Normal 22-29 [facility] Creatinine [Mass/Vol] 1.13 mg/dL Normal 0.70-1.20 [facility] GFR/1.73 sq M predicted among blacks MDRD (S/P/Bld) [Vol rate/Area] mL/min/{1.73_m2} Normal >60 [facility] Comment on above: Result Comment: >60 mL/min/1.73m2 EGFR, calc. for ages 18 and older using the MDRD formula (not corrected for weight), is valid for stable renal function. GFR/1.73 sq M.predicted MDRD (S/P/Bld) [Vol rate/Area] mL/min/{1.73_m2} Normal >60 [facility] Comment on above: Result Comment: >60 mL/min/1.73m2 EGFR, calc. for ages 18 and older using the MDRD formula (not corrected for weight), is valid for stable renal function. Glucose [Mass/Vol] 142 mg/dL Critically high 74-109 [facility] Potassium [Moles/Vol] 4.1 mmol/L Normal 3.5-5.1 [facility] Sodium [Moles/Vol] 138 mmol/L Normal 132-144 [facility] Urea nitrogen [Mass/Vol] 14 mg/dL Normal 8-23 [facility] CBC With Platelet No Differe ntialon 11-17-2018 Erythrocyte distribution width (RBC) [Ratio] 12.6 % Normal 11.5-14.5 [facility] Hematocrit (Bld) [Volume fraction] 47.7 % Normal 42.0-52.0 [facility] Hemoglobin (Bld) [Mass/Vol] 17.0 g/dL Normal 14.0-18.0 [facility] MCH (RBC) [Entitic mass] 32.8 pg Critically high 27.0-31.3 [facility] MCHC (RBC) [Mass/Vol] 35.7 % Normal 33.0-37.0 [facility] MCV (RBC) [Entitic vol] 91.9 fL Normal 80.0-100.0 [facility] Platelets (Bld) [#/Vol] 178 10*3/uL Normal 130-400 [facility] RBC (Bld) [#/Vol] 5.19 10*6/uL Normal 4.70-6.10 [facility] WBC (Bld) [#/Vol] 6.4 10*3/uL Normal 4.8-10.8 [facility] Hemoglobin A1con 11-17-2018 HbA1c (Bld) [Mass fraction] 7.5 % Critically high 4.8-5.9 [facility] Testosterone Free And Total, Adult Maleon 08-19-2018 Sex Hormone Binding Globulin 45 nmol/L Normal 11-80 [facility] Comment on above: Result Comment: REFE RENCE INTERVAL: Sex Hormone Binding Globulin Access complete set of age- and/or gender-specific reference intervals for this test in the [facility] Test Directory ([employer]). Testosterone, Adult Male >1500 Critically high 300-720 [facility] Comment on above: Result Comment: REFE RENCE INTERVAL: Testosterone, Adult Male Access complete set of age- and/or gender-specific reference intervals for this test in the [facility] Test Directory ([employer]). Testosterone, Free Calculation See Note Normal 47-244 [facility] Comment on above: Result Comment: The Free [...] reference intervals for this test in the [facility] Test Directory ([employer]). Testosterone, Percentage Free See Note Normal 1.6-2.9 [facility] Comment on above: Result Comment: The percent Free Testosterone result is greater than 2.0 percent. Performed by [employer], [facility] [place] [address] [email or web address], Eleazar Baker MD - Lab. Director Basic Metabolic Panelon 08-03 Anion gap [Moles/Vol] 16 mmol/L Critically high 7-13 [facility] Calcium [Mass/Vol] 8.9 mg/dL Normal 8.6-10.2 [facility] Chloride [Moles/Vol] 100 mmol/L Normal 98-107 [facility] CO2 [Moles/Vol] 24 mmol/L Normal 22-29 [facility] Creatinine [Mass/Vol] 0.89 mg/dL Normal 0.70-1.20 [facility] GFR/1.73 sq M predicted among blacks MDRD (S/P/Bld) [Vol rate/Area] mL/min/{1.73_m2} Normal >60 [facility] Comment on above: Result Comment: >60 mL/min/1.73m2 EGFR, calc. for ages 18 and older using the MDRD formula (not corrected for weight), is valid for stable renal function. GFR/1.73 sq M.predicted MDRD (S/P/Bld) [Vol rate/Area] mL/min/{1.73_m2} Normal >60 [facility] Comment on above: Result Comment: >60 mL/min/1.73m2 EGFR, calc. for ages 18 and older using the MDRD formula (not corrected for weight), is valid for stable renal function. Glucose [Mass/Vol] 82 mg/dL Normal 74-109 [facility] Potassium [Moles/Vol] 4.0 mmol/L Normal 3.5-5.1 [facility] Sodium [Moles/Vol] 140 mmol/L Normal 132-144 [facility] Urea nitrogen [Mass/Vol] 10 mg/dL Normal 8-23 [facility] Hemoglobin A1con 08-17-2018 HbA1c (Bld) [Mass fraction] 6.9 % Critically high 4.8-5.9 [facility] Vital Signs Date Time Vital Sign Value Performing Clinician Hollis stovall 12-02-2024 14:21-0500 Body height 177.8 cm Kaylyn Whitepatrick [employer] Work Phone: [facility] 12-02-2024 14:21-0500 Body mass index (BMI) [Ratio] 28.04 kg/m2 Kaylyn Kelly [employer] Work Phone: [facility] 12-02-2024 14:21-0500 Body temperature 98.49 [degF] Kaylyn Kelly [employer] Work Phone: [facility] 12-02-2024 14:21-0500 Body weight 88.63 kg Kaylyn Kelly [employer] Work Phone: [facility] 12-02-2024 14:21-0500 Diastolic blood pressure 70 mm[Hg] Kaylyn Kelly [employer] Work Phone: [facility] 12-02-2024 14:21-0500 Heart rate 82 /min Kaylyn Kelly [employer] Work Phone: [facility] 12-02-2024 14:21-0500 Respiratory rate 20 /min Kaylyn Kelly [employer] Work Phone: [facility] 12-02-2024 14:21-0500 SaO2% (BldA) [Mass fraction] 99 % Kaylyn Kelly [employer] Work Phone: [facility] 12-02-2024 14:21-0500 Systolic blood pressure 104 mm[Hg] Kaylyn Kelly [employer] Work Phone: [facility] 11-29-2024 13:11-0500 Body mass index (BMI) [Ratio] 28.55 kg/m2 Alla Santana [employer] Work Phone: [facility] [facility]-2024 13:11-0500 Body weight 90.27 kg Alla Santana [employer] Work Phone: [facility] 11-29-2024 13:11-0500 Diastolic blood pressure 84 mm[Hg] Alla Santana [employer] Work Phone: [facility] 11-29-2024 13:11-0500 Heart rate 76 /min Alla Santana [employer] Work Phone: [facility] 11-29-2024 13:11-0500 Systolic blood pressure 132 mm[Hg] Alla Santana [employer] Work Phone: [facility] 09-01-2024 14:03-0400 Body height 177.8 cm Kaylyn Kelly [employer] Work Phone: [facility] 09-01-2024 14:03-0400 Body mass index (BMI) [Ratio] 28.93 kg/m2 Kaylyn Kelly [employer] Work Phone: [facility] 09-01-2024 14:03-0400 Body temperature 96.3 [degF] Kaylyn Kelly [employer] Work Phone: [facility] 09-01-2024 14:03-0400 Body weight 91.44 kg Kaylyn Kelly [employer] Work Phone: [facility] 09-01-2024 14:03-0400 Diastolic blood pressure 74 mm[Hg] Kaylyn Kelly [employer] Work Phone: [facility] 09-01-2024 14:03-0400 Heart rate 80 /min Kaylyn Kelly [employer] Work Phone: [facility] 09-01-2024 14:03-0400 Respiratory rate 16 /min Kaylyn Kelly [employer] Work Phone: [facility] 09-01-2024 14:03-0400 Systolic blood pressure 130 mm[Hg] Kaylyn Kelly [employer] Work Phone: [facility] 08-26-2024 11:27-0400 Body height 177.8 cm Earnest Figueroa MD Work Phone: [facility] 08-26-2024 11:27-0400 Body mass index (BMI) [Ratio] 28.27 kg/m2 Earnest Figueroa MD Work Phone: [facility] 08-26-2024 11:27-0400 Body weight 89.36 kg Earnest Figueroa MD Work Phone: [facility] 08-26-2024 11:27-0400 Heart rate 73 /min Earnest Figueroa MD Work Phone: [facility] Comment on above: O2 SAT 99 08-26-2024 11:27-0400 Respiratory rate 16 /min Earnets Figueroa MD Work Phone: [facility] 08-16-2024 12:53-0400 Body height 177.8 cm Alla Santana [employer] Work Phone: [facility] 08-16-2024 12:53-0400 Body mass index (BMI) [Ratio] 28.81 kg/m2 Alla Santana [employer] Work Phone: [facility] 08-16-2024 12:53-0400 Body weight 91.08 kg Alla Santana [employer] Work Phone: [facility] 08-16-2024 12:53-0400 Diastolic blood pressure 86 mm[Hg] Alla Santana [employer] Work Phone: [facility] 08-16-2024 12:53-0400 Heart rate 82 /min Alla Santana [employer] Work Phone: [facility] 08-16-2024 12:53-0400 SaO2% (BldA) [Mass fraction] 97 % Alla Santana [employer] Work Phone: [facility] 08-16-2024 12:53-0400 Systolic blood pressure 142 mm[Hg] Alla Santana [employer] Work Phone: [facility] Healthcare Encounters Encounter Date Encounter Type Care Provider Facility Start: 12-13-2024 End: 12-13-2024 Clinisync Result Encounter Kaylyn Kelly [employer] Work Phone: [facility] Unsolicited Start: 12-13-2024 End: 12-13-2024 Clinisync Result Encounter Kaylyn Whitepatrick [employer] Work Phone: [facility] Unsolicited Start: 12-13-2024 End: 12-13-2024 Orders Only Kaylyn Hallzpatrick [employer] Work Phone: [facility] Comment on above: Abnormal abdominal u ltrasound (Primary Dx); Hepatic lesion; Pancreatic mass (CMS/HCC) Start: 12-06-2024 End: 12-06-2024 Refill Divya Mark MA [facility] Comment on above: Type 2 diabetes edmar itus with diabetic polyneuropathy, without long-term current use of insulin (CMS/HCC) Elevated liver enzym es (Primary Dx) Start: 12-02-2024 End: 12-02-2024 Office outpatient visit 15 minutes Kaylyn Kelly [employer] Work Phone: [facility] Comment on above: Type 2 diabetes edmar itus with diabetic polyneuropathy, with long-term current use of insulin (CMS/HCC) (Primary Dx); Elevated liver enzymes Start: 12-02-2024 End: 12-02-2024 ambulatory KAYLYN KELLY Not Available Start: 12-02-2024 End: 12-02-2024 Bamboo flowsheet Kaylyn Kelly [employer] Work Phone: [facility] Start: 12-02-2024 End: 12-02-2024 Bamboo flowsheet Kaylyn Kelly [employer] Work Phone: [facility] Start: 12-02-2024 End: 12-02-2024 Clinisync Result Encounter Kaylyn Whitepatrick [employer] Work Phone: [facility] Unsolicited Start: 12-01-2024 End: 12-01-2024 Orders Only Kaylyn Hallzpatrick [employer] Work Phone: [facility] Comment on above: Elevated liver enzym es (Primary Dx) Start: 11-29-2024 End: 11-29-2024 Bamboo flowsheet Alla Santana [employer] Work Phone: [facility] Start: 11-29-2024 End: 11-29-2024 Bamboo flowsheet Alla Santana [employer] Work Phone: [facility] Start: 11-29-2024 End: 11-29-2024 Office outpatient visit 15 minutes Alla Santana [employer] Work Phone: [facility] Comment on above: Polyneuropathy (Prim grant Dx); Paresthesia Start: 11-29-2024 End: 11-29-2024 ambulatory ALLA SANTANA Not Available Start: 11-26-2024 End: 11-26-2024 Clinisync Result Encounter Kaylyn Kelly [employer] Work Phone: [facility] Unsolicited Start: 11-26-2024 End: 11-26-2024 Clinisync Result Encounter Kaylyn Kelly [employer] Work Phone: [facility] Unsolicited Start: 09-15-2024 End: 09-15-2024 Patient encounter procedure Kaylyn Longtrick [employer]C Work Phone: [facility] Work Phone: Start: 09-15-2024 End: 09-15-2024 ambulatory Kaylyn Longtrick [employer]C Work Phone: [facility] Work Phone: Start: 09-01-2024 End: 09-01-2024 Bamboo flowsheet Kaylyn Kelly [employer] Work Phone: [facility] Start: 09-01-2024 End: 09-01-2024 Bamboo flowsheet Kaylyn Kelly [employer] Work Phone: [facility] Start: 09-01-2024 End: 09-01-2024 Office outpatient visit 15 minutes Kaylyn Longtrick [employer] Work Phone: [facility] Comment on above: Type 2 diabetes edmar itus with diabetic polyneuropathy, with long-term current use of insulin ([facility]) (Primary Dx); Type 2 diabetes mellitus with diabetic polyneuropathy, without long-term current use of insulin ([facility]/HCC); Diabetic polyneuropathy associated with type 2 diabetes mellitus ([facility]/HCC); Other hyperlipidemia ([facility]) Start: 09-01-2024 End: 09-01-2024 ambulatory KAYLYN KELLY Not Available Start: 08-31-2024 End: 08-31-2024 Orders Only Kaylyn Kelly [employer] Work Phone: [facility] Comment on above: Type 2 diabetes edmar itus with diabetic polyneuropathy, with long-term current use of insulin (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 Comment on above: Type 2 diabetes edmar itus with diabetic polyneuropathy, without long-term current use of insulin ([facility]) Start: 08-23-2024 End: 08-23-2024 Clinisync Result Encounter Generic External Data Provider [facility] Unsolicited Start: 08-23-2024 End: 08-23-2024 Clinisync Result Encounter Generic External Data Provider [facility] Unsolicited Start: 08-23-2024 End: 08-26-2024 Refill Kaylyn Hallzpatrick [employer] Work Phone: [facility] Comment on above: Type 2 diabetes edmar itus without complications ([facility]); Type 2 diabetes mellitus with diabetic polyneuropathy, without long-term current use of insulin ([facility]) Start: 08-16-2024 End: 08-16-2024 Bamboo flowsheet Alla Santana [employer] [facility] Start: 08-16-2024 End: 08-16-2024 Bamboo flowsheet Alla Santana [employer] Work Phone: [facility] [employer] [facility] Start: 08-16-2024 End: 08-16-2024 Office outpatient visit 15 minutes Alla Santana [employer] Work Phone: [facility] Comment on above: Polyneuropathy (Prim grant Dx); Paresthesia Start: 08-16-2024 End: 08-16-2024 ambulatory ALLA SANTANA Not Available Start: 06-15-2024 End: 06-15-2024 ambulatory ALLA SANTANA Not Available Start: 06-01-2024 End: 06-01-2024 ambulatory BOWEN FAWWAD Not Available Start: 04-28-2024 End: 04-28-2024 ambulatory ALLA SANTANA Not Available Start: 04-21-2024 End: 04-21-2024 ambulatory BOWEN FAWWAD Not Available Start: 04-01-2024 End: 04-01-2024 ambulatory CHRISTOPHER BHASKAR Not Available Start: 02-19-2024 End: 02-19-2024 ambulatory BOWEN FAWWAD Not Available Start: 10-02-2023 Patient encounter procedure Alla Santana [employer] Work Phone: [facility] Start: 03-17-2023 End: 03-18-2023 ambulatory BOWEN H FAWWAD Facility:[facility] Start: 03-07-2023 End: 03-08-2023 ambulatory BOWEN H FAWWAD Facility:[facility] Start: 02-03-2023 End: 02-04-2023 ambulatory LAYNE CROFT Facility:[facility] Start: 01-09-2023 End: 01-10-[address] POORNIMA RUSSELL Facility:[facility] Procedures Date Procedure Procedure Detail Performing Clinician Start: 12-13-2024 US RIGHT UPPER QUADRANT Kaylyn Longtrick [employer] Work Phone: Start: 12-02-2024 ALL AMYLASE Kaylyn Edgar itzpatrick [employer] Work Phone: Start: 12-02-2024 [facility] CMP (CMP) (FOR R [facility] USE) Kaylyn Kelly [employer] Work Phone: Start: 12-02-2024 [facility] LIPASE Kaylyn Edgar itzpatrick [employer] Work Phone: Start: 11-26-2024 ALL CBC WITH AUTO DIFF Kaylyn Longtrick [employer] Work Phone: Start: 08-23-2024 ALL BASIC METABOLIC PANEL Generic External Data Provider Start: 10-13-2016 Colonoscopy Alla Breann ritter [employer] Work Phone: Plan of Treatment Date Care Activity Detail Author Start: 10-13-2026 Screening for malignant neoplasm of colon [facility] Start: 05-02-2025 Influenza vaccination Influenza Vaccine (#1) [facility] Comment on above: Postponed from 07/04/2024 (Patient Refus ed) Start: 01-19-2025 End: 01-19-2025 Patient encounter procedure 01/19/2025 11:10 AM EDT Office Visit [facility] [address] [place] [address] Earnest Figueroa MD [address] [place] [address] [facility] Start: 01-01-2025 Glaucoma screening Diabetes: Retinopathy Screening [facility] Start: 12-30-2024 End: 12-30-2024 Patient encounter procedure [facility] Start: 12-13-2024 End: 12-13-2025 CT Abdomen WO and W contrast IV CT abdomen w and wo IV contrast Imaging Routine Abnormal abdominal ultrasound Expected: 12/13/2024, Expires: 12/13/2025 [facility] Work Phone: Comment on above: Expected: 12/13/2024, Expires: Start: 12-02-2024 End: 12-02-2024 Patient encounter procedure [facility] Comment on above: Arrived Start: 12-02-2024 End: 12-02-2025 Amylase [Enzymatic activity/volume] in Serum or Plasma Amylase Lab Routine Type 2 diabetes mellitus with diabetic polyneuropathy, with long-term current use of insulin (CMS/HCC) Expected: 12/02/2024 (Approximate), Expires: 12/02/2025 [facility] Work Phone: Comment on above: Expected: 12/02/2024 (Approximate), Expi res: 12/02/2025 Start: 12-02-2024 End: 12-02-2025 Lipase [Enzymatic activity/volume] in Serum or Plasma Lipase Lab Routine Type 2 diabetes mellitus with diabetic polyneuropathy, with long-term current use of insulin (CMS/HCC) Expected: 12/02/2024 (Approximate), Expires: 12/02/2025 [facility] Comment on above: Expected: 12/02/2024 (Approximate), Expi res: 12/02/2025 Start: 12-01-2024 End: 12-01-2025 Comprehensive metabolic 2000 panel - Serum or Plasma Comprehensive metabolic panel Lab Routine Elevated liver enzymes Expected: 12/01/2024 (Approximate), Expires: 12/01/2025 [facility] Comment on above: Expected: 12/01/2024 (Approximate), Expi res: 12/01/2025 Start: 12-01-2024 End: 12-01-2025 Hepatitis 1996 panel - Serum Hepatitis panel, acute Lab Routine Elevated liver enzymes Expected: 12/01/2024 (Approximate), Expires: 12/01/2025 [facility] Work Phone: Comment on above: Expected: 12/01/2024 (Approximate), Expi res: 12/01/2025 Start: 12-01-2024 End: 12-01-2025 US Abdomen limited US RUQ Imaging Routine Elevated liver enzymes Expected: 12/01/2024, Expires: 12/01/2025 [facility] Comment on above: Expected: 12/01/2024, Expires: Start: 11-29-2024 End: 11-29-2024 Patient encounter procedure [facility] [address] Comment on above: Polyneuropathy (Primary Dx); Paresthesia Start: 11-06-2024 Hemoglobin A1c measurement Diabetes: Hemoglobin A1C [facility] Start: 10-02-2024 Medicare Annual Wellness (AWV) Medicare Annual Wellness (AWV) [facility] Start: 10-02-2024 Pneumococcal Vaccine: 65+ Years (1 of 2 - PCV) Pneumococcal Vaccine: 65+ Years (1 of 2 - PCV) [facility] Comment on above: Postponed from 1963 (Patient Refus ed) Start: 09-15-2024 Pulse volume recorder pneumoplethysmography US arterial pvr rest [facility] Start: 09-01-2024 End: 09-01-2025 CBC W Auto Differential panel - Blood CBC and differential Lab Routine Type 2 diabetes mellitus with diabetic polyneuropathy, without long-term current use of insulin (CMS/HCC) Expected: 09/01/2024 (Approximate), Expires: 09/01/2025 [facility] Comment on above: Expected: 09/01/2024 (Approximate), Expi res: 09/01/2025 Start: 09-01-2024 End: 09-01-2025 Comprehensive metabolic 2000 panel - Serum or Plasma Comprehensive metabolic panel Lab Routine Type 2 diabetes mellitus with diabetic polyneuropathy, without long-term current use of insulin (CMS/HCC) Expected: 09/01/2024 (Approximate), Expires: 09/01/2025 [facility] Comment on above: Expected: 09/01/2024 (Approximate), Expi res: 09/01/2025 Start: 09-01-2024 End: 09-01-2025 Hemoglobin A1c/Hemoglobin.total in Blood Hemoglobin A1c Lab Routine Type 2 diabetes mellitus with diabetic polyneuropathy, without long-term current use of insulin (CMS/HCC) Expected: 09/01/2024 (Approximate), Expires: 09/01/2025 [facility] Comment on above: Expected: 09/01/2024 (Approximate), Expi res: 09/01/2025 Start: 09-01-2024 End: 09-01-2024 Patient encounter procedure [facility] Comment on above: Arrived Start: 08-26-2024 End: 08-26-2024 Patient encounter procedure 08/26/2024 11:20 AM EDT Office Visit [facility] [address] [place] [address] Earnest Figueroa MD [address] [place] [address] [facility] Start: 08-16-2024 End: 08-16-2024 Patient encounter procedure 08/16/2024 1:00 PM EDT Office Visit [facility] [address] [place] [address] Alla Santana NP [address] [place] [address] Polyneuropathy (Primary Dx); Paresthesia [facility] Comment on above: Polyneuropathy (Primary Dx); Paresthesia Start: 07-26-2024 Urine screening for protein Diabetes: Urine Protein Screening [facility] Start: 07-04-2024 Influenza vaccination Influenza Vaccine (#1) [facility] Start: 1961 Pneumococcal Vaccine: 65+ Years (1 of 2 - PCV) Pneumococcal Vaccine: 65+ Years (1 of 2 - PCV) [facility] Start: 1955 Screening for malignant neoplasm of colon [facility] Microalbumin/Creatin ine panel in random Urine Microalbumin / creatinine urine ratio Lab Routine Type 2 diabetes mellitus with diabetic polyneuropathy, without long-term current use of insulin ([facility]) Ordered: 09/01/2024 [facility] Work Phone: Comment on above: Ordered: 09/01/2024 Immunizations Immunization Date Immunization Notes Care Provider Fa cility 10-13-2021 influenza, injectabl e, quadrivalent, preservative free Alla Santana NP Work Phone: [facility] 10-13-2021 influenza virus vacc ine, unspecified formulation Alla Santana [employer] Work Phone: [facility] 08-20-2016 influenza, injectabl e, quadrivalent, contains preservative Alla Santana [employer] Work Phone: [facility] Healthcare Payers Date Payer Category Payer Medicare (Managed Care) [employer] MEDICARE [id number] 2024 Medicare [id number] 2024 Self-pay 2023 Medicare MEDICARE [id number] 2023 Medicare [id number] 2023 [facility] [id number] 2023 Unknown [id number] 1957 Unknown [id number] 2.16.840.1.290339.3.579. 2.593 1957 Unknown [id number] 2.16.840.1.750681.3.579. 2.593 1957 Unknown [id number] 2.16.840.1.975885.3.579. 2.593 1957 Unknown [id number] 2.16.840.1.009433.3.579. 2.593 1957 Unknown [id number] 2.16.840.1.860134.3.579. 2.1259 1957 Unknown [id number] 2.16.840.1.490350.3.579. 2.1259 1957 Unknown [id number] 2.16.840.1.744943.3.579. 2.1259 1957 Unknown [id number] 2.16.840.1.344397.3.579. 2.1259 1957 Unknown [id number] 2.16.840.1.958771.3.579. 2.1259 1957 Unknown [id number] 2.16.840.1.842726.3.579. 2.1259 1957 Unknown [id number] 2.16.840.1.628183.3.579. 2.1259 1957 Unknown [id number] 2.16.840.1.747145.3.579. 2.1259 1957 Unknown [id number] 2.16.840.1.704913.3.579. 2.1259 1957 Unknown [id number] 2.16.840.1.755093.3.579. 2.1259 1957 Unknown [id number] 2.16.840.1.675120.3.579. 2.1259 Unknown [id number] Unknown [id number] 2.16.840.1.511522.3.579. 2.531 Social History Date Type Detail Facility Start: 04-21-2024 Tobacco smoking status [facility] Ex-smoker [facility] History of tobacco use [...] file [facility] Tobacco smoking status [facility] Unknown if ever smoked [facility] Work Phone: Start: 09-16-2024 Sex Male (finding) [facility] Start: 1955 Sex Assigned At Male [facility] NEGATED: Highlighted rowStart: NINF History of tobacco use Passive smoker [facility] Medical Equipment Procedure Code Equipment Code Equipment Origin al Text Equipment Identifier Dates Inject 1 each un charlene the skin Daily Use as instructed [id number] Start: 01-01-2024 End: 12-31-2024 Clinical Notes 08-16-2024 to 12-06-2024 Telephone Encounter - Divya Mark MA - 12/06/2024 10:41 AM ESTTelephone Encounter - Divya Mark MA - 12/06/2024 10:41 AM ESTTelephone Encounter - Divya Mark MA - 12/06/2024 10:40 AM EST Note Date & Type Note Facility 12-06-2024 Telephone encounter Note Does pt drink alcohol at all? NO Is he having any abdominal pain/discomfort? YES Changes in bowel habits? NO Changes in skin color or eye color? NO [facility] 12-06-2024 Miscellaneous Notes Does pt drink alcohol at all? NO Is he having any abdominal pain/discomfort? YES Changes in bowel habits? NO Changes in skin color or eye color? NO ----- Message from [employer] sent at 12/01/2024 4:06 PM EST ----- Attempted to personally call pt but did not receive an answer. His liver enzymes are elvated, particularly his ALKALINE PHOSPHATASE is 3 times the upper limit. This is concerning to me and could indicate liver issues or other underlying causes. However, I want to do additional testing to help me determine the cause. Does pt drink alcohol at all? Is he having any abdominal pain/discomfort? Changes in bowel habits? Changes in skin color or eye color? I have ordered an abdominal ultrasound and more liver function testing by bloodwork to be done. I would like him to have this all done GIL[facility]. Please fax labs to wherever pt would like them to be drawn. If he develops severe abdominal pain, unspecific abdominal pain, yellowing of skin or yellowing of the whites of his eyes, bloating, blood in stool, bleeding, etc he needs to report to the ER. Thank you. documented in this encounter [facility] 12-06-2024 Telephone encounter Note ----- Message from [employer] sent at 12/01/2024 4:06 PM EST ----- Attempted to personally call pt but did not receive an answer. His liver enzymes are elvated, particularly his ALKALINE PHOSPHATASE is 3 times the upper limit. This is concerning to me and could indicate liver issues or other underlying causes. However, I want to do additional testing to help me determine the cause. Does pt drink alcohol at all? Is he having any abdominal pain/discomfort? Changes in bowel habits? Changes in skin color or eye color? I have ordered an abdominal ultrasound and more liver function testing by bloodwork to be done. I would like him to have this all done GILA. Please fax labs to wherever pt would like them to be drawn. If he develops severe abdominal pain, unspecific abdominal pain, yellowing of skin or yellowing of the whites of his eyes, bloating, blood in stool, bleeding, etc he needs to report to the ER. Thank you. [facility] 12-02-2024 History of Present illness Narrative Associated Problem(s): Elevated liver enzymes Discussed labs in thorough detail with pt including US and elevated liver enzymes. Will also check Amylase and Lipase levels as well. No abdominal pain or distention noted upon assessment. No jaundice or yellowing of eyes observed. Pt denies any abdominal pain, changes in bowel habits. Does admit to occasional heartburn. May have LEIGH/MASH. Will review hepatitis panel and liver US for further investigation. Associated Problem(s): Type 2 diabetes mellitus with diabetic polyneuropathy, with long-term current use of insulin ([facility]) Currently taking Lantus, Trulicity, Januvia, Glipizide Most recent labs: A1C 8.9 % This is a significant increase from 6.4% in August. Will increase Trulicity today to 3mg. Reports he skips meals and doesn't eat consistently due to BG levels fluctuating. States after a meal his BG levels are 180 and that's too high for him. Discussed with patient healthy dietary and medication habits and expected BG levels after a meal. Will refer to endocrinology for further management. Checks BG levels using [employer]. Patient educated on lifestyle modifications, dietary restrictions, [...] 69 y.o. male who presents for Diabetes. HPI Specialists: Neurology-Dr. Santana HLD: Currently taking Atorvastatin 20mg Denies any myalgias. Continue current regimen. DMII: Currently taking Lantus, Trulicity, Januvia, Glipizide Most recent labs: A1C 8.9 % This is a significant increase from 6.4% in August. Will increase Trulicity today to 3mg. Reports he skips meals and doesn't eat consistently due to BG levels fluctuating. States after a meal his BG levels are 180 and that's too high for him. Discussed with patient healthy dietary and medication habits and expected BG levels after a meal. Will refer to endocrinology for further management. Checks BG levels using FreeStyle Nakia. Patient educated on lifestyle modifications, dietary restrictions, [...] Vitals reviewed. Constitutional: Appearance: Normal appearance. HENT: Right Ear: Tympanic membrane normal. Left Ear: [...] sounds are normal. Palpations: Abdomen is soft. Skin: Capillary Refill: Capillary refill takes less than 2 seconds. Neurological: Mental Status: He is alert and oriented to person, place, and time. Assessment/Plan Problem List Items Addressed This Visit Type 2 diabetes mellitus with diabetic polyneuropathy, with long-term current use of insulin ([facility]) - Primary Currently taking Lantus, Trulicity, Januvia, Glipizide Most recent labs: A1C 8.9 % This is a significant increase from 6.4% in August. Will increase Trulicity today to 3mg. Reports he skips meals and doesn't eat consistently due to BG levels fluctuating. States after a meal his BG levels are 180 and that's too high for him. Discussed with patient healthy dietary and medication habits and expected BG levels after a meal. Will refer to endocrinology for further management. Checks BG levels using FreeStyle Nakia. Patient educated on lifestyle modifications, dietary restrictions, signs and symptoms of hypoglycemia/hyperglycemia and importance of eating regular consistent meals. Stressed upon importance of checking blood glucose at home and bring blood glucose log to appointments. All questions, concerns answered and addressed. Encouraged to call office if persistent hypoglycemia/hyperglycemia on home glucose monitoring noted. Relevant Medications Continuous Glucose Personal Injury Specialist (FreeStyle Nakia 2 Clyde) device Dulaglutide 3 MG/0.5ML solution auto-injector Other Relevant Orders Ambulatory referral to Endocrinology Amylase Lipase Elevated liver enzymes Discussed labs in thorough detail with pt including US and elevated liver enzymes. Will also check Amylase and Lipase levels as well. No abdominal pain or distention noted upon assessment. No jaundice or yellowing of eyes observed. Pt denies any abdominal pain, changes in bowel habits. Does admit to occasional heartburn. May have LEIGH/MASH. Will review hepatitis panel and liver US for further investigation. documented in this encounter [facility] 12-02-2024 Instructions Kaylyn Kelly NP - 12/02/2024 2:30 PM EST Have Labs done. Have Abdominal ultrasound completed as soon as possible! We will call you with results. If you develop severe abdominal pain, unspecific abdominal pain, yellowing of skin or yellowing of the whites of his eyes, bloating, blood in stool, bleeding, Report to the ER!!! documented in this encounter [facility] 11-29-2024 History of Present illness Narrative Images from the original note were not included. Chief Complaint Patient presents with Numbness Tingling Subjective Gene Adam is a 69 y.o. male. History of [...] Cosopt EYE DROPS OP FreeStyle Nakia 2 Clyde device FreeStyle Nakia 2 Sensor misc glipiZIDE [...] SITagliptin 100 MG tablet; Commonly known as: Titouvserena Riddleulicity 1.5 MG/0.5ML solution pen-injector; Generic drug: dulaglutide; [...] wrist extensors , wrist flexor , and die polisher strength 5/5. LUE strength deltoid , biceps , triceps , wrist extensors , wrist flexor , and die polisher strength 5/5. RLE strength iliopsoas, quadriceps, tibialis [...] reflex 0. LLE knee reflex 0. Coordination: Jfihsz-ge-whgy testing normal. Rapid alternating movements are normal. Gait: Wide based. Appears slightly antalgic. Review and summary of old records: Lower extremity segmental arterial ultrasound, PVR at [facility] on 09/15/2024: No hemodynamically significant peripheral [...] this work up via his PCP - Continue Lyrica (managed by outside provider) [...] new or worsening symptoms. Alla Santana NP [facility] Advanced Neurology documented in this encounter [facility] 09-16-2024 Radiology Diagnostic study note [facility] [address] Ultrasound Report Signed Patient: Laura Song JR MR#: [id number] : 1955 Acct:[id number] Age/Sex: 69 / M ADM Date: 4 Loc: Room: Type: [facility] CLI Attending Dr: Joe Dowell MD Ordering Provider: Joe Dowell MD Date of Service: 09/15/24 US/US arterial pvr rest LE: I70.213 - Atherosclerosisof [place] arteries of extremiti... Copies to: Joe Dowell [...] Joe Dowell M.D.09/16/2024 8:49 AM Dictation Location: [place] [address] Tech: Nancy Yarbrough Transcribed By: TRICIA 09/16/2449 Dictated By: Joe Dowell MD 09/16/2448 Signed By: 09/16/2449 [facility] Work Phone: 09-03-2024 History of Present illness [...] MODERATE RISK >11.0 HIGH RISK [facility]: Most recent labs: A1C6.4% Has been [...] polyneuropathy, with long-term current use of insulin ([facility]/HCC) - Primary Most recent labs: A1C 6.4% [...] pregabalin (Lyrica) 200 MG capsule Other hyperlipidemia ([facility]) Currently taking Atorvastatin 20mg Denies any myalgias. Continue current regimen. Type 2 diabetes mellitus with diabetic polyneuropathy, without long-term current use of insulin (CMS/HCC) Relevant Medications Continuous Glucose Sensor (FreeStyle Nakia 2 Sensor) misc pregabalin (Lyrica) 200 MG capsule glipiZIDE (Glucotrol) 10 MG tablet Other Relevant Orders Microalbumin / creatinine urine ratio Hemoglobin A1c Comprehensive metabolic panel CBC and differential documented in this encounter [facility] 09-01-2024 Instructions Kaylyn Kelly NP - 09/01/2024 [...] and simple sugars. documented in this encounter [facility] 08-26-2024 History of Present illness Narrative Laura [...] Administer into affected eye(s) Continuous Blood Gluc Personal Injury Specialist (FreeStyle Nakia 2 Clyde) device No dose, route, or frequency recorded. [...] fail to improve. documented in this encounter [facility] 08-16-2024 History of Present illness Narrative Images [...] Cosopt EYE DROPS OP FreeStyle Nakia 2 Clyde device FreeStyle Nakia 2 Sensor misc glipiZIDE [...] wrist extensors , wrist flexor , and die polisher strength 5/5. LUE strength deltoid , biceps , triceps , wrist extensors , wrist flexor , and die polisher strength 5/5. RLE strength iliopsoas, quadriceps, tibialis [...] reflex 0. LLE Knee reflex 0. Coordination: Kwnefo-kb-krjy testing normal. Rapid alternating movements are normal. [...] new or worsening symptoms. Alla Santana NP [facility] Advanced Neurology documented in this encounter [facility] 08-16-2024 Instructions Alla Santana NP - 08/16/2024 1:00 PM EDT - Stop duloxetine documented in this encounter [facility] Evaluation note Diagnosis Type 2 diabetes mellitus with diabetic polyneuropathy, without long-term current use of insulin ([facility]/HCC)- Primary Screening for hyperlipidemia Screening for lipoid disorders Annual physical exam Routine general medical examination at a [facility] care facility Diabetic polyneuropathy associated with type 2 diabetes mellitus (CMS/HCC) Type 2 diabetes mellitus with diabetic polyneuropathy, without long-term current use of insulin ([facility]/HCC)- Primary Diabetic polyneuropathy associated with type 2 diabetes mellitus (CMS/HCC) Other hyperlipidemia (CMS/HCC) Other male erectile dysfunction Type 2 diabetes mellitus with diabetic polyneuropathy, with long-term current use of insulin (CMS/HCC)- Primary Other male erectile dysfunction Other hyperlipidemia (CMS/HCC) Diabetic polyneuropathy associated with type 2 diabetes mellitus (CMS/HCC) Type 2 diabetes mellitus with diabetic polyneuropathy, without long-term current use of insulin (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 diabetic polyneuropathy, with long-term current use of insulin (CMS/HCC)- Primary Other male erectile dysfunction Other hyperlipidemia (CMS/HCC) Drug-induced weight gain Polyneuropathy- Primary Unspecified hereditary and idiopathic peripheral neuropathy Paresthesia Disturbance of skin sensation documented in this encounter [facility] HealthcareEvaluation note* Diagnosis Type 2 diabetes mellitus with diabetic polyneuropathy, without long-term current use of insulin (CMS/HCC)- Primary Screening for hyperlipidemia Screening for lipoid disorders Annual physical exam Routine general medical examination at a [facility] Diabetic polyneuropathy associated with type 2 [...] of insulin (CMS/HCC) documented in this encounter [facility] HealthcareEvaluation note* Diagnosis Type 2 diabetes mellitus with diabetic polyneuropathy, without long-term current use of insulin (CMS/HCC)- Primary Screening for hyperlipidemia Screening for lipoid disorders Annual physical exam Routine general medical examination at a [facility] care facility Diabetic polyneuropathy associated [...] of insulin (CMS/HCC) documented in this encounter [facility] HealthcareEvaluation note* Diagnosis Type 2 diabetes mellitus with diabetic polyneuropathy, without long-term current use of insulin (CMS/HCC)- Primary Screening for hyperlipidemia Screening for lipoid disorders Annual physical exam Routine general medical examination at a [facility] Diabetic polyneuropathy associated with type 2 [...] hypofunction Low libido documented in this encounter [facility] HealthcareEvaluation note* Diagnosis Type 2 diabetes mellitus with diabetic polyneuropathy, without long-term current use of insulin (CMS/HCC)- Primary Screening for hyperlipidemia Screening for lipoid disorders Annual physical exam Routine general medical examination at a [facility] care facility Diabetic polyneuropathy associated [...] of insulin (CMS/HCC) documented in this encounter [facility] HealthcareEvaluation note* Diagnosis Type 2 diabetes mellitus with diabetic polyneuropathy, without long-term current use of insulin (CMS/HCC)- Primary Screening for hyperlipidemia Screening for lipoid disorders Annual physical exam Routine general medical examination at a [facility] care facility Diabetic polyneuropathy associated [...] Other hyperlipidemia (CMS/HCC) documented in this encounter [facility] HealthcareEvaluation noteNo assessment information [facility]it[facility] Work Phone: Evaluation note* Diagnosis Type [...] of skin sensation documented in this encounter [facility] HealthcareEvaluation note* Diagnosis Type 2 diabetes [...] enzyme levels documented in this encounter [facility]* Diagnosis Type 2 diabetes mellitus with diabetic polyneuropathy, without long-term current use of insulin (CMS/HCC)- Primary Screening for hyperlipidemia Screening for lipoid disorders Annual physical exam Routine general medical examination at a [facility] Diabetic polyneuropathy associated with type [...] 2 diabetes mellitus (CMS/HCC) Other hyperlipidemia (CMS/HCC) Type 2 diabetes mellitus with diabetic polyneuropathy, with long-term current use of insulin (CMS/HCC)- Primary Elevated liver enzymes Other nonspecific abnormal serum enzyme levels documented in this encounter [facility] HealthcareEvaluation note* Diagnosis Type 2 diabetes mellitus with diabetic polyneuropathy, without long-term current use of insulin (CMS/HCC)- Primary Screening for hyperlipidemia Screening for lipoid disorders Annual physical exam Routine general medical examination at a [facility] Diabetic polyneuropathy associated with type 2 [...] 2 diabetes mellitus (CMS/HCC) Other hyperlipidemia (CMS/HCC) Type 2 diabetes mellitus with diabetic polyneuropathy, with long-term current use of insulin (CMS/HCC)- Primary Elevated liver enzymes Other nonspecific abnormal serum enzyme levels Type 2 diabetes mellitus with diabetic polyneuropathy, without long-term current use of insulin (CMS/HCC) documented in this encounter [facility] HealthcareEvaluation note* Diagnosis Type 2 diabetes mellitus with diabetic polyneuropathy, without long-term current use of insulin (CMS/HCC)- Primary Screening for hyperlipidemia Screening for lipoid disorders Annual physical exam Routine general medical examination at a [facility] care [facility] Diabetic polyneuropathy associated [...] 2 diabetes mellitus (CMS/HCC) Other hyperlipidemia (CMS/HCC) Type 2 diabetes mellitus with diabetic polyneuropathy, with long-term current use of insulin (CMS/HCC)- Primary Elevated liver enzymes Other nonspecific abnormal serum enzyme levels Elevated liver enzymes- Primary Other nonspecific abnormal serum enzyme levels documented in this encounter [facility]* Diagnosis Type 2 diabetes mellitus with diabetic polyneuropathy, without long-term current use of insulin (CMS/HCC)- Primary Screening for hyperlipidemia Screening for lipoid disorders Annual physical exam Routine general medical examination at a [facility] Diabetic polyneuropathy associated with type [...] 2 diabetes mellitus (CMS/HCC) Other hyperlipidemia (CMS/HCC) Type 2 diabetes mellitus with diabetic polyneuropathy, with long-term current use of insulin (CMS/HCC)- Primary Elevated liver enzymes Other nonspecific abnormal serum enzyme levels Abnormal abdominal ultrasound- Primary Nonspecific (abnormal) findings on radiological and other examination of abdominal area, including retroperitoneum Hepatic lesion Pancreatic mass (CMS/HCC) Unspecified disease of pancreas documented in this encounter [facility] Summary [...] section and content) DATE CREATED AUTHOR 05/05/2019 [facility] DATE CREATED AUTHOR AUTHOR'S ORGANIZ ATION 11/13/2021 [facility] DATE CREATED AUTHOR AUTHOR'S ORGANIZ ATION 03/18/2023 [facility] DATE CREATED AUTHOR AUTHOR'S ORGANIZ ATION 09/20/2024 [facility] DATE CREATED AUTHOR AUTHOR'S ORGANIZ ATION 12/04/2024 [facility] dical Specialists EPIC Care Teams (unrecognized sec tion and content) Bulldozer Operator Relationship Specialty Start Date End Date Shaikh Hunt MD [address] [place] [address] PCP - General Internal Medicine 02/19/24 Bulldozer Operator Relationship Specialty Start Date End Date Shaikh Hunt MD [address] [place] [address] PCP - General Internal Medicine 02/19/24 Bulldozer Operator Relationship Specialty Start Date End Date Shaikh Hunt MD [address] [place] [address] PCP - General Internal Medicine 02/19/24 Bulldozer Operator Relationship Specialty Start Date End Date Shaikh Hunt MD [address] [place] [address] PCP - General Internal Medicine 02/19/24 Bulldozer Operator Relationship Specialty Start Date End Date Shaikh Hunt MD [address] [place] [phone] PCP - General Internal Medicine 02/19/24 Bulldozer Operator Relationship Specialty Start Date End Date Shaikh Hunt MD [address] [place] [phone] PCP - General Internal Medicine 02/19/24 Bulldozer Operator Relationship Specialty Start Date End Date Marty Avendaño MD [address] [place] [address] PCP - General Family Medicine 08/31/24 Kaylyn Kelly NP [address] [place] [address] Nurse Practitioner Family Medicine 08/31/24 Bulldozer Operator Relationship Specialty Start Date End Date Marty Avendaño MD [address] [place] [phone] PCP - General Family Medicine 08/31/24 Kaylyn Kelly NP [address] [place] [phone] Nurse Practitioner Family Medicine 08/31/24 Team Status: Active Member Role Status Dates Kaylyn Kelly NP-Gemma Primary Care Provider Ac tive Team Status: Inactive Member Role Status Dates Joe Dowell MD Attending Provider Active S tart: September 15, 2024 End: September 15, 2024 Kaylyn Kelly NP-C Primary Care Provider Ac tive Start: September 15, 2024 End: September 15, 2024 Bulldozer Operator Relationship Specialty Start Date End Date Marty Avendaño MD [address] [place] [phone] PCP - General Family Medicine 08/31/24 Kaylyn Kelly NP [address] [place] [address] Nurse Practitioner Family Medicine 08/31/24 Bulldozer Operator Relationship Specialty Start Date End Date Marty Avendaño MD [address] [place] [phone] PCP - General Family Medicine 08/31/24 Kaylyn Kelly NP [address] [place] [phone] Nurse Practitioner Family Medicine 08/31/24 Bulldozer Operator Relationship Specialty Start Date End Date Marty Avendaño MD [address] [place] [address] PCP - General Family Medicine 08/31/24 Kaylyn Kelly NP [address] [place] [address] Nurse Practitioner Family Medicine 08/31/24 Bulldozer Operator Relationship Specialty Start Date End Date Marty Avendaño MD [address] [place] [phone] PCP - General Family Medicine 08/31/24 Kaylyn Kelly NP [address] [place] [address] Nurse Practitioner Family Medicine 08/31/24 Bulldozer Operator Relationship Specialty Start Date End Date Marty Avendaño MD [address] [place] [phone] PCP - General Family Medicine 08/31/24 Kaylyn Kelly NP [address] [place] [address] Nurse Practitioner Family Medicine 08/31/24 Bulldozer Operator Relationship Specialty Start Date End Date Marty Avendaño MD [address] [place] [phone] PCP - General Family Medicine 08/31/24 Kaylyn Kelly NP [address] [place] [address] Nurse Practitioner Family Medicine 08/31/24 Bulldozer Operator Relationship Specialty Start Date End Date Marty Avendaño MD [address] [place] [phone] PCP - General Family Medicine 08/31/24 Kaylyn Kelly NP [address] [place] [address] Nurse Practitioner Family Medicine 08/31/24 Bulldozer Operator Relationship Specialty Start Date End Date Marty Avendaño MD [address] [place] [phone] PCP - General Family Medicine 08/31/24 Kaylyn Kelly NP [address] [place] [address] Nurse Practitioner Family Medicine 08/31/24 Bulldozer Operator Relationship Specialty Start Date End Date Marty Avendaño MD [address] [place] [phone] PCP - General Family Medicine 08/31/24 Kaylyn Kelly NP [address] [place] [address] Nurse Practitioner Family Medicine 08/31/24 Bulldozer Operator Relationship Specialty Start Date End Date Marty Avendaño MD [address] [place] [address] PCP - General Family Medicine 08/31/24 Kaylyn Kelly NP [address] [place] [address] Nurse Practitioner Family Medicine 08/31/24 Reason for Visit (unrecogniz ed section and content) Reason Comments Peripheral Neuropathy Reason Comments Med Refill Reason Comments Testicular Hypofunction Reason Comments Diabetes Reason Comments Numbness Tingling Reason Comments Diabetes Goals (unrecognized section and [...] BE BASED ON THE PRIMARY CLINICAL RECORDS. [facility]. provides no warranty or guarantee of the accuracy or completeness of information in this document.
--- NOTE | 2024-12-15 14:51 | CT_ITS ---
[address] [address] Patient Name: LAURA ISAACS MRN: [id number] date: 1955 Sex: M Assigned Patient Location: ER Current Patient Location: ER Accession/Order Number: [id number] Exam Date: 12/15/2024 15:28 Report Date: 12/15/2024 16:15 At the request of: JESSICA MCMAHAN Procedure: CT abdomen pelvis w con CT ABDOMEN/PELVIS WITH IV CONTRAST. INDICATION: Abdominal pain. COMPARISON: CT dated 12/29/2020. TECHNIQUE: Contiguous axial images were obtained from the lung bases to the pelvic floor following the intravenous administration of contrast. Coronal and sagittal reformations are provided. FINDINGS: LOWER LUNGS: Clear. LIVER/BILIARY TREE: There are new innumerable low-density hepatic lesions measuring up to 3.7 cm. No intrahepatic ductal dilatation. GALLBLADDER: No significant gallbladder wall thickening. No radiopaque stone. CBD: Normal CBD. SPLEEN: Normal in size. There is splenic vein thrombosis. PANCREAS: There is a new complex cystic mass in the pancreatic body/tail measuring approximately 6.0 x 3.3 cm on axial plane. There is peripancreatic stranding. ADRENALS: Normal. KIDNEYS: No hydronephrosis. No radiopaque calculus. STOMACH AND BOWEL: Decompressed stomach. No dilated bowel loops. No bowel wall thickening. APPENDIX: Visualized portions appear unremarkable. PERITONEAL CAVITY: Moderate ascites. There is soft tissue nodularity in the left upper omentum. . ABDOMINAL WALL: No subcutaneous stranding. No subcutaneous fluid collection. LYMPH NODES: There are enlarged periportal and retroperitoneal lymph nodes measuring up to 1.8 cm in short axis. ABDOMINAL AORTA: No aneurysm. PELVIS: No acute abnormality. MUSCULOSKELETAL: No acute osseous abnormality. CT/CT abdomen pelvis w con IMPRESSION: 1. Complex pancreatic cystic mass suspicious for neoplasm. Superimposed acute pancreatitis not occluded. Correlate with serum lipase levels. 2. Innumerable hepatic lesions suggestive of metastases. 3. Left upper quadrant omental soft tissue nodularity suspicious for metastases. 4. Periportal and retroperitoneal lymphadenopathy. 5. Moderate ascites. 6. 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 Electronically authenticated by: BETSEY CAMEJO Date: 12/15/2024 16:15
--- NOTE | 2024-12-15 14:51 | ECG_ITS ---
[facility] Test Date: 2024-12-15 Pat Name: LAURA ISAACS Department: Room: - Gender: Male [employer] Deburrer: : 1955 Requested By: Order Number: [id number] Reading MD: ELLIOTT MCCARTHY Measurements Intervals [place] Rate: 105 P: 42 MN: 160 QRS: 12 QRSD: 78 T: 10 QT: 330 QTc: 391 Interpretive Statements 1120 Sinus tachycardia 1570 with occasional ventricular premature complexes 6220 Possible left atrial enlargement 8102 Low QRS voltage in chest leads Non-Specific T wave inversion in III 9140 abnormal rhythm ECG Compared to ECG 03/17/2023 10:37:10 Ventricular premature complex(es) now present Low QRS voltage now present Sinus rhythm no longer present Electronically Signed On 12-17-2024 5:26:40 EST by ELLIOTT MCCARTHY
--- NOTE | 2024-12-15 14:51 | CT_ITS ---
The [address] [address] Patient Name: LAURA ISAACS MRN: [id number] date: 1955 Sex: M Assigned Patient Location: ER Current Patient Location: ER Accession/Order Number: [id number] Exam Date: 12/15/2024 15:28 Report Date: 12/15/2024 16:20 At the request of: JESSICA MCMAHAN Procedure: CT angio chest EXAM: CT angio chest HISTORY: PE COMPARISON: None. TECHNIQUE: CT angio chest FINDINGS: OVERALL DIAGNOSTIC QUALITY: Full diagnostic quality LOWER NECK: No abnormality. CHEST: PULMONARY ARTERIES: Pulmonary emboli within the right middle lobe segmental pulmonary arteries (image 43 of series 4 LUNGS / AIRWAYS / PLEURA: Multiple pulmonary nodules throughout the lungs, all measuring 6 mm or less. The largest of these is in the left lower lobe measuring 6 mm on image 40 of series 4 HEART / OTHER VESSELS: Minimal coronary artery disease. No evidence of right heart strain. MEDIASTINUM / ESOPHAGUS: Normal. LYMPH NODES: Enlarged right hilar node measuring 1.0 cm in short axis (image 34 of series 4). There is also an enlarged anterior pericardial lymph node measuring 1.0 cm in short axis (image 63 of series 4). CHEST WALL: No significant abnormality. UPPER ABDOMEN: This is reported separately. However, there are numerous hypoenhancing masses throughout the liver. There is also partially imaged hypoenhancing mass of the pancreatic tail and extensive retroperitoneal adenopathy. There is also ascites and suspected peritoneal nodularity MUSCULOSKELETAL: No significant abnormality. No suspicious osseous lesion. CT/CT angio chest IMPRESSION: 1. Pulmonary emboli within the right middle lobe segmental pulmonary arteries. No evidence of right heart strain. 2. Findings highly suspicious for pancreatic malignancy and suspected hepatic metastases along with metastatic retroperitoneal and mesenteric adenopathy. There is also ascites with suspected peritoneal nodularity, raising the suspicion for peritoneal carcinomatosis. This is reported in more detail separately. 3. Multiple pulmonary nodules throughout the lungs, all measuring 6 mm or less. However, given the suspected anchors malignancy, metastatic disease should be considered. Findings were discussed with Jessica Mcmahan via telephone by Dr. Constantino on 12/15/2024 3:20 PM JACK TAMP OPERATOR. Electronically authenticated by: MARILEE CONSTANTINO Date: 12/15/2024 16:20
--- NOTE | 2024-12-15 14:53 | ED.GENADUL1 ---
HPI HPI - General Adult General Chief complaint: Chest Pain Stated complaint: URI SYMPTOMS, ABDOMIN PAIN Time Seen by Provider: 12/15/24 14:47 Source: patient Mode of arrival: Wheelchair Limitations: no limitations History of Present Illness HPI narrative: Patient is a 69-year-old male with a history of insulin-dependent diabetes who presents to the emergency department for 2-week history of generalized abdominal pain. He denies vomiting or diarrhea. He has not had any objective fevers but reports feeling hot and cold. He is scheduled for an outpatient CT scan at the end of this month after seeing his PCP. He was not placed on any medications. He states yesterday he developed chest discomfort and shortness of breath. He has not had any cough or congestion. No medications prior to arrival. He denies any history of coronary artery disease, PE, no previous abdominal surgeries. He states he did have pancreatitis in the past, unknown why. Related Data Home Medications ?Medication ?Instructions ?Recorded ?Confirmed glipizide 10 mg tablet 5 mg PO .BIDAC 07/21/23 12/15/24 atorvastatin 20 mg tablet 20 mg PO DAILY 12/15/24 12/15/24 dorzolamide 22.3 mg-timolol 6.8 1 drp ophthalmic (eye) Q12H 12/15/24 12/15/24 mg/mL eye drops dulaglutide 3 mg/0.5 mL 3 mg subcut QWEEK 12/15/24 12/15/24 subcutaneous pen injector (Trulicity) insulin glargine 100 unit/mL (3 30 unit subcut BEDTIME 12/15/24 12/15/24 mL) subcutaneous pen (Lantus Solostar U-100 Insulin) pregabalin 200 mg capsule 200 mg PO DAILY 12/15/24 12/15/24 sitagliptin phosphate 100 mg 100 mg PO DAILY 12/15/24 12/15/24 tablet (Januvia) Allergies Allergy/AdvReac Type Severity Reaction Status Date / Time No Known Drug Allergies Allergy Verified 12/15/24 14:39 Opioid HPI Opioid Management Most Recent Opioid Data: Last Pain Scale 10 12/15/24 15:26 12/15/24 Last MAR Pain Assessment 12/15/24 15:26 Review of Systems ROS Constitutional Reports: chills; Denies: fever Ears, nose, mouth, and throat Denies: throat pain or nasal congestion Cardiovascular Reports: chest pain Respiratory Reports: shortness of breath; Denies: cough Gastrointestinal Reports: abdominal pain; Denies: nausea, vomiting or diarrhea Musculoskeletal Denies: back pain Integumentary/Breast Denies: rash Neurological Denies: numbness in extremities or weakness in extremities Hematologic/Lymphatic Denies: easy bruising or easy bleeding PFSH PFSH Social History Smoking status: Never smoker Little interest or pleasure in doing things: not at all Feeling down, depressed, or hopeless: not at all Exam Narrative Exam Narrative: Gen.: Awake, alert, in no distress Head: Normocephalic, atraumatic ENT: Moist mucous membranes Respiratory: No respiratory distress, lungs clear bilaterally Cardio: Regular rate and rhythm Gastrointestinal: Abdomen is soft, nondistended and diffusely tender to palpation with no guarding or rebound Extremities: Moves extremities equally Psych: Normal mood and affect Neuro: No focal neuro deficit Skin: Warm, dry, intact Constitutional Vital Signs, click to edit/add: Last Vital Signs Temp 97.5 F L 12/15/24 14:39 Pulse 97 H 12/15/24 18:00 Resp 17 12/15/24 18:00 BP 122/89 12/15/24 18:00 Pulse Ox 97 12/15/24 18:00 O2 Del Method Room Air 12/15/24 15:11 Course Vital Signs Vital signs: Vital Signs Temperature 97.5 F L 12/15/24 14:39 Pulse Rate 120 H 12/15/24 14:39 Respiratory Rate 24 H 12/15/24 14:39 Blood Pressure 115/79 12/15/24 14:39 Pulse Oximetry 100 12/15/24 14:39 Oxygen Delivery Method Room Air 12/15/24 14:39 Temperature 97.5 F L 12/15/24 14:39 Pulse Rate 97 H 12/15/24 18:00 Respiratory Rate 17 12/15/24 18:00 Blood Pressure 122/89 12/15/24 18:00 Pulse Oximetry 97 12/15/24 18:00 Oxygen Delivery Method Room Air 12/15/24 15:11 Medical Decision Making MDM Narrative Medical decision making narrative: Patient treated with Dilaudid, Zofran, fluids, albuterol on arrival to the ER. He is hemodynamically stable. Laboratory studies showed significantly elevated lactic acid, white blood cell count with evidence of dehydration and globally elevated LFTs. CT angio of the chest shows the patient has a pulmonary embolism in the right middle lobe and CT of the abdomen and pelvis shows a complex mass in the pancreatic body/tail consistent with neoplasm and evidence of metastasis to the liver and omentum with moderate ascites. I discussed the case with Dr. Caballero for hematology oncology ([id number]) and due to the new diagnosis of pancreatic cancer with metastasis in addition to elevated bilirubin, the patient will be better served at a tertiary care facility where he can have potentially palliative stent placed or other procedure to help determine the course of his treatment plan. He will also need to be on a heparin drip for the right middle lobe pulmonary embolism which will obviously complicate any procedures that are going to be done. I had a lengthy conversation with the patient and his son at bedside and explained the CT results and the need for transfer to a higher level of care. Patient was also reevaluated by attending physician who reiterated the treatment plan and need for transfer to tertiary care. We contacted multiple hospitals, [facility] was willing to accept the patient for transfer but we do not have a bed assignment at this time, I discussed the case with [place] nurse practitioner for the hospitalist service on behalf of Dr. Childs ([id number]) who accepted the patient for transfer. Patient was given additional Dilaudid but is resting comfortably at this time with stable vital signs. We are awaiting a bed assignment at [facility]. Critical care time 35 minutes SHARED APC VISIT, PHYSICIAN ATTESTATION: Nwic-io-midn I performed a substantive part of the MDM during the patient?s E/M visit. I personally evaluated and examined the patient. I personally made or approved the documented management plan and acknowledge its risk of complications. Medical Records Medical records reviewed: Yes I reviewed the patient's medical records Lab Data Lab results reviewed: Yes I reviewed the patient's lab results Labs: Lab Results 12/15/24 12/15/24 12/15/24 Range/Units 14:55 14:57 15:04 WBC 17.8 H (4.0-11.0) 10^3/uL RBC 5.28 (4.70-6.10) 10^6/uL Hgb 15.7 (14.0-18.0) g/dL Hct 47.2 (42.0-54.0) % MCV 89.4 (80.0-94.0) fL MCH 29.7 (25.9-34.0) pg MCHC 33.3 (29.9-35.2) g/dL RDW 13.6 (11.0-15.0) % Plt Count 156 (150-450) 10^3/uL MPV 11.6 (9.5-13.5) fL Seg Neuts % (Manual) 86.0 H (43.0-75.0) Band Neutrophils % 2.0 (0-5) % Lymphocytes % (Manual) 4.0 L (20.5-60.0) % Monocytes % (Manual) 7.0 (1.7-12.0) % Eosinophils % (Manual) 1.0 (0.9-7.0) % Basophils % (Manual) 0.0 L (0.2-2.0) % Neutrophils # (Manual) 15.30 H (1.4-6.5) 10^3/uL Band Neutrophils # 0.4 H (0.0-0.3) 10^3/uL Lymphocytes # (Manual) 0.71 L (1.20-3.80) 10^3/uL Monocytes # (Manual) 1.24 H (0.30-0.80) 10^3/uL Eosinophils # (Manual) 0.17 (0.00-0.70) 10^3/uL Basophils # (Manual) 0.00 (0.00-0.10) 10^3/uL PT 17.7 H (9.0-11.6) sec INR 1.77 VBG pH 7.402 (7.330-7.430) VBG pCO2 23.6 L (40.0-52.0) mmHg Sodium 130 L (136-145) mmol/L Potassium 5.1 (3.5-5.1) mmol/L Chloride 96 L (98-107) mmol/L Carbon Dioxide 22.2 (21.0-32.0) mmol/L Anion Gap 16.9 BUN 23.0 H (7.0-18.0) mg/dL Creatinine 1.45 H (0.70-1.30) mg/dL Est GFR ( Amer) 59 L (>=60 mL/min/1.73m^2) Est GFR (Non-Af Amer) 49 L (>=60 mL/min/1.73m^2) BUN/Creatinine Ratio 15.9 Glucose 183 H (74-106) mg/dL Lactate 5.6 H* (0.4-2.0) mmol/L Calcium 8.4 L (8.5-10.1) mg/dL Total Bilirubin 6.6 H (0.2-1.0) mg/dL Direct Bilirubin 3.6 H* (0.0-0.2) mg/dL AST 277 H (15-37) U/L ALT 142 H (16-63) U/L Alkaline Phosphatase 612 H (46-116) U/L Troponin I High Sens 41.7 (4.0-76.1) pg/mL NT-Pro-B Natriuret Pep 501.0 (<=900.0) pg/mL Total Protein 6.9 (6.4-8.2) g/dL Albumin 2.7 L (3.4-5.0) g/dL Globulin 4.2 g/dL Albumin/Globulin Ratio 0.6 Lipase 26.0 (16.0-77.0) U/L Urine Color (YELLOW) Urine Clarity (CLEAR) Urine pH (5.0-9.0) Ur Specific [place] (1.005-1.025) Urine Protein (NEG/TRACE) mg/dL Urine Glucose (UA) (NEGATIVE) mg/dL Urine Ketones (NEGATIVE) mg/dL Urine Occult Blood (NEGATIVE) Urine Nitrite (NEGATIVE) Urine Bilirubin (NEGATIVE) Urine Urobilinogen (0.2-1.0) EU/dL Ur Leukocyte Esterase (NEGATIVE) Urine RBC (0-2) #/HPF Urine WBC (NONE SEEN) #/HPF Ur Squamous Epith Cells (NONE/RARE) #/LPF Urine Crystals (None Seen) #/HPF Urine Bacteria (NONE SEEN) #/HPF Urine Casts (NONE SEEN) #/LPF Hyaline Casts Fine Granular Casts Urine Mucus (NONE SEEN) Ur Culture Indicated? Influenza Type A Ag Negative Influenza Type B Ag Negative RSV Antigen Not detected (NOT DETECTE) SARS-CoV-2 Ag (CV2AG) Negative (NEGATIVE) 12/15/24 12/15/24 Range/Units 16:05 17:40 WBC (4.0-11.0) 10^3/uL RBC (4.70-6.10) 10^6/uL Hgb (14.0-18.0) g/dL Hct (42.0-54.0) % MCV (80.0-94.0) fL MCH (25.9-34.0) pg MCHC (29.9-35.2) g/dL RDW (11.0-15.0) % Plt Count (150-450) 10^3/uL MPV (9.5-13.5) fL Seg Neuts % (Manual) (43.0-75.0) Band Neutrophils % (0-5) % Lymphocytes % (Manual) (20.5-60.0) % Monocytes % (Manual) (1.7-12.0) % Eosinophils % (Manual) (0.9-7.0) % Basophils % (Manual) (0.2-2.0) % Neutrophils # (Manual) (1.4-6.5) 10^3/uL Band Neutrophils # (0.0-0.3) 10^3/uL Lymphocytes # (Manual) (1.20-3.80) 10^3/uL Monocytes # (Manual) (0.30-0.80) 10^3/uL Eosinophils # (Manual) (0.00-0.70) 10^3/uL Basophils # (Manual) (0.00-0.10) 10^3/uL PT (9.0-11.6) sec INR VBG pH (7.330-7.430) VBG pCO2 (40.0-52.0) mmHg Sodium (136-145) mmol/L Potassium (3.5-5.1) mmol/L Chloride (98-107) mmol/L Carbon Dioxide (21.0-32.0) mmol/L Anion Gap BUN (7.0-18.0) mg/dL Creatinine (0.70-1.30) mg/dL Est GFR ( Amer) (>=60 mL/min/1.73m^2) Est GFR (Non-Af Amer) (>=60 mL/min/1.73m^2) BUN/Creatinine Ratio Glucose (74-106) mg/dL Lactate 3.5 H* (0.4-2.0) mmol/L Calcium (8.5-10.1) mg/dL Total Bilirubin (0.2-1.0) mg/dL Direct Bilirubin (0.0-0.2) mg/dL AST (15-37) U/L ALT (16-63) U/L Alkaline Phosphatase (46-116) U/L Troponin I High Sens (4.0-76.1) pg/mL NT-Pro-B Natriuret Pep (<=900.0) pg/mL Total Protein (6.4-8.2) g/dL Albumin (3.4-5.0) g/dL Globulin g/dL Albumin/Globulin Ratio Lipase (16.0-77.0) U/L Urine Color Dk. orange (YELLOW) Urine Clarity Clear (CLEAR) Urine pH 5.5 (5.0-9.0) Ur Specific [place] 1.020 (1.005-1.025) Urine Protein 100 A (NEG/TRACE) mg/dL Urine Glucose (UA) Negative (NEGATIVE) mg/dL Urine Ketones 15 A (NEGATIVE) mg/dL Urine Occult Blood Negative (NEGATIVE) Urine Nitrite Negative (NEGATIVE) Urine Bilirubin Large A (NEGATIVE) Urine Urobilinogen 1.0 (0.2-1.0) EU/dL Ur Leukocyte Esterase Negative (NEGATIVE) Urine RBC 0-2 (0-2) #/HPF Urine WBC 0-2 A (NONE SEEN) #/HPF Ur Squamous Epith Cells Few A (NONE/RARE) #/LPF Urine Crystals None seen (None Seen) #/HPF Urine Bacteria Trace A (NONE SEEN) #/HPF Urine Casts Seen A (NONE SEEN) #/LPF Hyaline Casts Many Fine Granular Casts Few Urine Mucus Small A (NONE SEEN) Ur Culture Indicated? No Influenza Type A Ag Influenza Type B Ag RSV Antigen (NOT DETECTE) SARS-CoV-2 Ag (CV2AG) (NEGATIVE) Imaging Data CT scan - chest: Attestation: I have reviewed the pertinent imaging results. Radiologist's impression: ITS Impressions Abdomen/Pelvis CT 12/15/24 14:51 IMPRESSION: 1. Complex pancreatic cystic mass suspicious for neoplasm. Superimposed acute pancreatitis not occluded. Correlate with serum lipase levels. 2. Innumerable hepatic lesions suggestive of metastases. 3. Left upper quadrant omental soft tissue nodularity suspicious for metastases. 4. Periportal and retroperitoneal lymphadenopathy. 5. Moderate ascites. 6. 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 Electronically authenticated by: BETSEY CAMEJO Date: 12/15/2024 16:15 Chest CTA 12/15/24 14:51 IMPRESSION: 1. Pulmonary emboli within the right middle lobe segmental pulmonary arteries. No evidence of right heart strain. 2. Findings highly suspicious for pancreatic malignancy and suspected hepatic metastases along with metastatic retroperitoneal and mesenteric adenopathy. There is also ascites with suspected peritoneal nodularity, raising the suspicion for peritoneal carcinomatosis. This is reported in more detail separately. 3. Multiple pulmonary nodules throughout the lungs, all measuring 6 mm or less. However, given the suspected anchors malignancy, metastatic disease should be considered. Findings were discussed with Kathrin Bonilla via telephone by Dr. 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 Electronically authenticated by: MARILEE ROCA Date: 12/15/2024 16:20 ECG Data Attestation: I personally reviewed and interpreted this ECG as follows: (Sinus tachycardia at a rate of [address] elevation or ectopy. EKG reviewed by attending physician) Critical Care Time Critical Care Time Critical Care Time: Yes Total Critical Care Time: 35 Attestation: 35 minutes of critical care time assessed for evaluation of pulmonary embolism with initiation of IV heparin and transfer to tertiary care for further evaluation and management Discharge Plan Discharge Chief Complaint: Chest Pain Clinical Impression: Pulmonary embolism, Chest pain, Pancreatic mass, Metastatic cancer, Abdominal pain Patient Disposition: [facility] Time of Disposition Decision: 18:55 Discharge Location: [facility] Mode of Transportation: EMS Prescriptions / Home Meds: No Action glipizide 10 mg tablet 5 mg PO .BIDAC atorvastatin 20 mg tablet 20 mg PO DAILY dorzolamide-timolol 22.3-6.8 mg/mL drops 1 drp OPHTHALMIC (EYE) Q12H Trulicity 3 mg/0.5 mL pen injector 3 mg SUBCUT QWEEK pregabalin 200 mg capsule 200 mg PO DAILY insulin glargine [Lantus Solostar U-100 Insulin] 100 unit/mL (3 mL) insulin pen 30 unit SUBCUT BEDTIME Januvia 100 mg tablet 100 mg PO DAILY Print Language: Georgian Referrals: GIGI BLAIR [Primary Care Provider] - 1 week
[2024-12-15] MEDS: 0.9 % SODIUM CHLORIDE 1,000 ML 999 ML IV (15:07)
[2024-12-15 15:09] LABS: PCO2 VBG 23.6 mmHg (40.0-52.0); pH VBG 7.402 (7.330-7.430)
[2024-12-15] MEDS: ALBUTEROL SULFATE 2.5 MG/3 ML VIAL NEB IH (15:11)
[2024-12-15 15:13] LABS: Hematocrit 47.2 % (42.0-54.0); Hemoglobin 15.7 g/dL (14.0-18.0); Mean Corpuscular HGB Conc 33.3 g/dL (29.9-35.2); Mean Corpuscular Hemoglobin 29.7 pg (25.9-34.0); Mean Corpuscular Volume 89.4 fL (80.0-94.0); Mean Platelet Volume 11.6 fL (9.5-13.5); Platelet Count 156 10^3/uL (150-450); Red Blood Count 5.28 10^6/uL (4.70-6.10); Red Cell Distribution Width 13.6 % (11.0-15.0); White Blood Count 17.8 10^3/uL (4.0-11.0)
[2024-12-15 15:22] LABS: Influenza Virus A Antigen Negative; Influenza Virus B Antigen Negative; Internal Control Within Normal Limits; Respiratory Syncytial Virus Not Detected (NOT DETECTE)
[2024-12-15 15:23] LABS: Internal Control Within Normal Limits; SARS-CoV-2 Ag NEGATIVE (NEGATIVE)
[2024-12-15 15:24] LABS: Band Neutrophils Absolute 0.4 10^3/uL (0.0-0.3); Eosinophils Absolute Manual 0.17 10^3/uL (0.00-0.70); Lymphocytes Absolute Manual 0.71 10^3/uL (1.20-3.80); Monocytes Absolute Manual 1.24 10^3/uL (0.30-0.80)
[2024-12-15] MEDS: HYDROMORPHONE HCL 0.5 MG/0.5 ML SYRINGE IV ×2 (15:26→16:51)
[2024-12-15] MEDS: ONDANSETRON PF 4 MG/2 ML VIAL IV (15:27)
[2024-12-15 15:28] LABS: Alanine Aminotransferase 142 U/L (16-63); Albumin Globulin Ratio 0.6; Albumin Level 2.7 g/dL (3.4-5.0); Alkaline Phosphatase 612 U/L (46-116); Anion Gap 16.9; Aspartate Amino Transferase 277 U/L (15-37); BUN Creatinine Ratio 15.9; Bilirubin Total 6.6 mg/dL (0.2-1.0); Calcium 8.4 mg/dL (8.5-10.1); Carbon Dioxide 22.2 mmol/L (21.0-32.0); Chloride 96 mmol/L (98-107); Estimated GFR (African America 59 (>=60 mL/min/1.73m^2); Estimated GFR (Non-African Ame 49 (>=60 mL/min/1.73m^2); Globulin 4.2 g/dL; Glucose 183 mg/dL (74-106); Potassium 5.1 mmol/L (3.5-5.1); Sodium 130 mmol/L (136-145); Total Protein 6.9 g/dL (6.4-8.2)
[2024-12-15 15:29] LABS: INR 1.77; Prothrombin Time 17.7 sec (9.0-11.6)
[2024-12-15 15:35] LABS: Troponin I High Sensitivity 41.7 pg/mL (4.0-76.1)
[2024-12-15 15:36] LABS: Lactate/Lactic Acid 5.6 mmol/L (0.4-2.0)
[2024-12-15 16:07] LABS: Bilirubin Direct 3.6 mg/dL (0.0-0.2)
[2024-12-15 16:19] LABS: Bilirubin Urine LARGE (NEGATIVE); Blood Urine NEGATIVE (NEGATIVE); Clarity Urine CLEAR (CLEAR); Color Urine DK. ORANGE (YELLOW); Glucose Urine UA NEGATIVE (NEGATIVE); Ketones Urine 15 mg/dL (NEGATIVE); Leukocyte Esterase Urine NEGATIVE (NEGATIVE); Nitrite Urine NEGATIVE (NEGATIVE); Protein Urine 100 mg/dL (NEG/TRACE); pH Urine 5.5 (5.0-9.0)
[2024-12-15 16:35] LABS: Bacteria Urine TRACE #/HPF (NONE SEEN); Crystals Seen? None Seen #/HPF (None Seen); Mucus Urine SMALL (NONE SEEN); RBC Urine 0-2 #/HPF (0-2); Squamous Epithelial Cell Urine FEW #/LPF (NONE/RARE); WBC Urine 0-2 #/HPF (NONE SEEN)
[2024-12-15 16:36] LABS: Cast Seen? SEEN #/LPF (NONE SEEN); Fine Granular Casts Urine FEW; Hyaline Casts Urine MANY; Urine Culture Indicated NO
[2024-12-15] MEDS: HEPARIN SODIUM,PORCINE/D5W 25,000 UNIT/500 ML IV.SOLN 30 UNIT IV (16:53)
[2024-12-15 18:19] LABS: Lactate/Lactic Acid 3.5 mmol/L (0.4-2.0)
[2024-12-15 23:45] LABS: PTT Heparin Monitor 121.7 sec (43.5-61.5)
[2024-12-16] VITALS (9 sets, daily range): PULSE 100–111; O2SAT 95–98
[2024-12-16] MEDS: HYDROMORPHONE HCL 1 MG/ML CARTRIDGE IV (00:18)
[2024-12-16] MEDS: ONDANSETRON PF 4 MG/2 ML VIAL IV (00:18)
[2024-12-16 00:59] LABS: PTT Heparin Monitor 119.2 sec (43.5-61.5)
== END 2024-12-16 01:47 | disposition short-term general hospital (02) ==
PROVIDERS: Physician Assistant; Emergency Provider Emergency Medicine
DX: I26.99 Other pulmonary embolism without acute cor pulmonale (principal); E11.9 Type 2 diabetes mellitus without complications; Z79.4 Long term (current) use of insulin; R07.9 Chest pain, unspecified; R06.02 Shortness of breath; Z79.84 Long term (current) use of oral hypoglycemic drugs; K86.9 Disease of pancreas, unspecified; R10.84 Generalized abdominal pain; C25.9 Malignant neoplasm of pancreas, unspecified; C78.7 Secondary malignant neoplasm of liver and intrahepatic bile duct; R18.8 Other ascites
CPT/HCPCS: 36415; 71275; 74177; 80053; 81001; 82248; 82800; 83605; 83690; 83880; 84484; 85007; 85027; 85610; 85730; 87040; 87420; 87804; 87811; 93005; 94640; 96365; 96366; 96375; 96376; 99285; J1171; J1644; J2405; Q9967